=== PATIENT | male | born 1965 | race Caucasian/White ===

== ENCOUNTER 2022-12-10 03:22 | Emergency (ER) | payer SELFPAY ==
[2022-12-10 03:30] VITALS: BP 197/107; PULSE 62; O2SAT 96
--- NOTE | 2022-12-10 03:36 | ED.OVERDOSE ---
HPI - Overdose General Chief Complaint: Overdose Stated Complaint: OD Time Seen by Provider: 12/10/22 03:35 Source: patient Mode of arrival: ambulatory Limitations: no limitations History of Present Illness HPI Narrative: Patient was found unresponsive by PD at friend's house after patient had few drinks and use cocaine does not remember taking fentanyl but was given 8 mg of intranasal Narcan and patient woke up and responded back to normal on arrival alert oriented x3 and ambulatory without any distress Related Data Allergies Allergy/AdvReac Type Severity Reaction Status Date / Time No Known Allergies Allergy Verified 12/10/22 03:56 Review of Systems Review of Systems: Yes all other systems are reviewed and are negative [facility] Social History Social History Advance Directives: No Advance Directives Information Provided: Yes Physical Exam Vital Signs: Vital Signs: Last Vital Signs Temp 97.5 F 12/10/22 03:42 Pulse 73 12/10/22 03:42 Resp 20 12/10/22 03:42 BP 148/98 H 12/10/22 03:42 Pulse Ox 93 12/10/22 03:42 O2 Del Method Room Air 12/10/22 03:42 BMI result Body Mass Index 35.0 Appearance: Alert. Oriented X3. No acute distress. Eyes: PERRLA, No Nystagmus ENT: Pharynx normal. Oral Mucosa moist Neck: Normal inspection. Neck supple. CVS: Normal heart rate and rhythm. Pulses normal. Respiratory: No respiratory distress. Equal air entry bilateral, no wheezing/rales/rhonchi Abdomen: Soft and nontender. Bowel sounds are present, no mass palpable, no CVA tenderness Skin: Skin warm and dry. Normal skin color. Normal skin turgor. Extremities: No lower extremity edema. No calf tenderness Neuro: Oriented X 3. No motor deficit. No sensory deficit.No cerebellar signs , cranial nerves II-XII intact Medical Decision Making Medical Decision Making [facility] Narrative: Patient positive for cocaine and fentanyl likely because of unresponsiveness receive Narcan patient refused to go to detox discharge patient home on Narcan go with patient Differential Diagnosis Differential Diagnoses: The differential diagnosis associated with the presentation includes Overdose/cocaine abuse and alcohol abuse Lab Data [facility] Lab Attestation statement: I reviewed the patient's lab results. Labs: Lab Results 12/10/22 Range/Units 03:40 Urine Opiates Screen POSITIVE H (Not Detect) Urine Fentanyl Screen POSITIVE H (Not Detect) Ur Barbiturates Screen Not Detected (Not Detect) Ur Phencyclidine Scrn Not Detected (Not Detect) Ur Amphetamines Screen Not Detected (Not Detect) U Benzodiazepines Scrn Not Detected (Not Detect) Urine Cocaine Screen POSITIVE H (Not Detect) U Marijuana (THC) Screen Not Detected (Not Detect) Discharge Plan Discharge Clinical Impression: Poisoning by opiate or related narcotic, Cocaine intoxication Patient Disposition: Home, Self-Care Instructions: Cocaine Abuse (ED), Opioid Use Disorder (ED) Additional Instructions: Stop using opiates and cocaine and alcohol Follow up detox
[2022-12-10 03:42] VITALS: BP 148/98; PULSE 73; RESP 20; TEMP 36.4; O2SAT 93; BMI 35.0
--- NOTE | 2022-12-10 04:46 | PC.NURSE ---
Pt ambulated to BR independently with steady gait.
[2022-12-10 05:06] VITALS: BP 137/101; PULSE 73; RESP 18; O2SAT 99
== END 2022-12-10 05:07 | disposition home or self-care (01) ==
PROVIDERS: Emergency Provider Internal Medicine
DX: T40.5X1A Poisoning by cocaine, accidental (unintentional), initial encounter (principal); T40.411A Poisoning by fentanyl or fentanyl analogs, accidental (unintentional), initial encounter; R40.4 Transient alteration of awareness; Y92.009 Unspecified place in unspecified non-institutional (private) residence as the place of occurrence of the external cause; F14.929 Cocaine use, unspecified with intoxication, unspecified
CPT/HCPCS: 80307; 99285

== ENCOUNTER 2024-05-28 16:52 | Observation (INO) | payer MEDICAID, SELFPAY ==
--- NOTE | ~2024-05-28 | CT_ITS ---
CLINICAL HISTORY: dizzy CT head without contrast Comparison: None Findings: No intra-axial mass, midline shift, hydrocephalus, or acute hemorrhage. Nonspecific white matter hypodensities are present. The visualized paranasal sinuses and mastoid air cells are normal. The orbits are unremarkable. No skull fracture. IMPRESSION: 1. No acute intracranial findings. This document has been electronically signed by: Chadd Aguila MD, PHD on 05/28/2024 19:24:32
--- NOTE | ~2024-05-28 | XR_ITS ---
CLINICAL HISTORY: Dizziness, elevated troponin 2 view chest x-ray Comparison: None Findings: No consolidation or effusion. Normal size heart. No acute fracture. IMPRESSION: 1. No acute findings. This document has been electronically signed by: Chadd Aguila MD, PHD on 05/29/2024 00:57:09
[2024-05-28 17:51] VITALS: BP 174/104; PULSE 72; RESP 18; TEMP 36.3; O2SAT 98; BMI 32.7
--- NOTE | 2024-05-28 17:54 | ECG_ITS ---
Test Reason : arrythmia Blood Pressure : */* mmHG Vent. Rate : 62 BPM Atrial Rate : 62 BPM P-R Int : 174 ms QRS Dur : 108 ms QT Int : 452 ms P-R-T Axes : 59 21 166 degrees QTcB Int : 458 ms Normal sinus rhythm Left ventricular hypertrophy with repolarization abnormality ( Sokolow-Parker , [place] product ) Abnormal ECG No previous ECGs available Referred By: Usha Atwood Electronically Signed By: TILA GLYNN MD
--- NOTE | 2024-05-28 17:56 | ED.GENADULT ---
HPI - General Adult General Chief complaint: Dizziness Stated complaint: vertigo,diff walking,muscle loss Time Seen by Provider: 05/28/24 22:39 Source: patient Mode of arrival: ambulatory Limitations: no limitations History of Present Illness ED Provider: Martir Salgado DO HPI narrative: 58-year-old male who has not seen a doctor in decades presents with 4 years of dizziness with exertion that worsened over the last week. Admits to chronic alcohol use without withdrawals, chronic tobacco use and occasional cocaine use. No known family history of coronary disease at early age. Patient does not have a history of hypertension, hyperlipidemia, or diabetes but again, has not seen a doctor. He has had no cardiac testing. He reports occasional chest pain, not occurring today. He reports chronic dyspnea on exertion and chronic numbness of the feet. He denies any new changes in hearing, vision, speaking nor has he had numbness or weakness of the arms or legs. Related Data Home Medications ?Medication ?Instructions ?Recorded ?Confirmed No Known Home Meds 05/29/24 05/29/24 Allergies Allergy/AdvReac Type Severity Reaction Status Date / Time No Known Allergies Allergy Verified 05/28/24 17:56 Review of Systems Review of Systems: Yes all other systems are reviewed and are negative [facility] Social History Social History Household Members: Other Household Members Other:: Father Housing: House Alcohol intake: current Alcohol intake frequency: 0-2 drinks per day Alcohol type: hard liquor Patient Tobacco Use Status: Current everyday Tobacco user Tobacco use type: Cigarette e-Cigarette/Vaping Use: Never Used Substance Use Type: Crack/Cocaine and Marijuana service: No Physical Exam ED Vital Signs: Vital Signs - 24 hr 05/28/24 17:51 05/28/24 22:49 05/28/24 23:56 Temperature 97.4 F Pulse Rate 72 74 77 Respiratory Rate 18 15 16 Blood Pressure 174/104 H 166/95 H 170/102 H Pulse Oximetry 98 Oxygen Delivery Method Room Air BMI result Body Mass Index 32.7 Constitutional: ?Alert, oriented, speaking in full sentences HEENT: ?Normocephalic, atraumatic. ?Moist mucous membranes Eyes: ?PERRL, EOMI Neck: ?Supple, nontender Chest: ?No chest wall tenderness Respiratory: ?Lungs clear to auscultation, no increased work of breathing Cardio: ?Regular rate and rhythm, no murmur, 2+ radial and DP pulses symmetrically GI: ?Soft, nondistended, nontender Back: ?Normal range of motion, nontender Skin: ?No rash, no lesions Neuro: ?Mental Status: Patient is alert, attentive, and fully oriented Speech: Clear and fluent CN II: Visual teran are full, pupils are equal and briskly reactive to light CN III, IV, : Extra ocular motions are intact in all directions. No ptosis. CN V: Facial sensation intact, both upper and lower face CN VII: Symmetric facial movements CN VIII: Hearing is grossly normal CN IX, X: Symmetric elevation of palate, normal phonation CN XI: Shoulder shrug 5/5 strength bilaterally CN XII: Tongue protrudes midline Motor: No pronator drift bilaterally. 5/5 strength all 4 extremities. Normal muscle bulk and tone. Sensory: Sensation intact all 4 extremities to light touch without reported paresthesias. Coordination: No dysmetria on finger to nose bilaterally. No truncal ataxia noted. Extremities: ?No swelling or tenderness, full range of motion Psych: ?Calm, alert and cooperative, appropriate behavior Course Course Course Narrative: This is a rapid medical exam performed by Usha Atwood PA-C. The patient is a 58-year-old male with self report of chronic vertigo, who presents with failure to thrive. Patient states he has declined rapidly, becoming increasingly weak, with a gait instability. No change in dizziness. Patient denies that movement of the head elicits dizziness or nausea. Patient states he is off balance when he walks, becomes dizzy at times, with tinnitus. We will be screening basic labs, EKG, UA, drug screen, CT of the brain. The patient is stable and can return to the waiting room pending his full medical assessment. Medications Administered Generic Name Dose Route Start Last Admin Trade Name Freq PRN Reason Stop Dose Admin Amlodipine Besylate 5 mg 05/29/24 01:10 05/29/24 09:00 Amlodipine Besylate 5 Mg Tablet PO 5 mg DAILY MICHAEL Administration Protocol Enoxaparin Sodium 40 mg 05/29/24 01:00 05/29/24 02:04 Enoxaparin Sodium 40 Mg/0.4 Ml Syringe SUBCUT 40 mg Q24H MICHAEL Administration Sodium Chloride 3 ml 05/29/24 08:00 05/29/24 16:26 0.9 % Sodium Chloride Flush 3 Ml Syringe IVFLUSH 3 ml QSHIFT MICHAEL Administration Thiamine HCl 100 mg 05/29/24 09:00 05/29/24 09:00 Thiamine Hcl 100 Mg Tablet PO 100 mg DAILY MICHAEL Administration Discontinued Medications Generic Name Dose Route Start Last Admin Trade Name Chinmay PRN Reason Stop Dose Admin Aspirin 324 mg 05/28/24 23:42 05/28/24 23:55 Aspirin 81 Mg Tab.Chew PO 05/28/24 23:43 324 mg ONCE ONE Administration Thiamine HCl 200 mg/ Sodium 102 mls @ 204 mls/hr 05/29/24 00:49 05/29/24 04:09 Chloride IV 05/29/24 01:18 Infused ONCE ONE Infusion Lorazepam 1 mg 05/29/24 01:06 05/29/24 02:04 Lorazepam 1 Mg Tablet PO 05/29/24 01:07 1 mg ONCE ONE Administration Potassium Chloride 20 meq 05/29/24 09:13 05/29/24 10:24 Potassium Chloride Er 20 Meq Tab.Er.Prt PO 05/29/24 09:14 20 meq ONCE ONE Administration Medical Decision Making Medical Decision Making [facility] Narrative: This is a pleasant 58-year-old male who has not seen a doctor in several decades, admits to cocaine use and alcohol with half a pt a day with no withdrawal history and no signs of withdrawal today who finally came in for lightheaded dizziness that he has been experiencing for years which has progressively worsened, associated only when he stands and walks as well as dyspnea on exertion and occasional chest tightness but no chest pain or pressure today. Also smokes tobacco regularly. I repeated his ECG and it shows LVH with no other ischemic changes. His initial troponin was 88.8. I just gave him full-dose aspirin. He does have a repeat in-lab and if it goes up significantly I will initiate heparin. CT noncontrast head unremarkable. Neurologic exam fully intact. Case reviewed with hospitalist who kindly asked for Cardiology input. We will trend troponin. The patient has no active symptoms at rest. He has no clinical features concerning for central etiology such as stroke today. Patient is amenable to staying in the hospital for further workup. 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 Repeat troponin is downtrending at 79. No heparin warranted at this time. Admission/Observation Consideration of admission/observation: Escalation of care including admission/observation considered Lab Data MDM Lab Attestation statement: I reviewed the patient's lab results. No leukocytosis, mild anemia which is macrocytic unremarkable chemistry with a troponin of 88.8, grossly unremarkable urinalysis, urine tox screen positive for cocaine, negative respiratory swab. No prior labs for comparison. 05/29/24 05:12 05/29/24 05:12 Labs: Lab Results 05/28/24 05/28/24 05/28/24 Range/Units 19:01 19:15 21:34 WBC 6.2 (4.8-10.8) X10*3/uL RBC 3.32 L (4.60-5.80) X10*6/uL Hgb 11.9 L (14.0-18.0) g/dl Hct 33.7 L (42.0-52.0) % MCV 101.5 H (80.0-98.0) fL MCH 35.8 H (27.0-33.0) pg MCHC 35.3 (31.0-36.0) g/dl RDW 14.5 (11.0-16.0) % Plt Count 108 L (160-400) X10*3/uL MPV 8.3 L (9.4-12.4) fL Immature Gran % (Auto) 0.3 (0.0-0.4) % Neut % (Auto) 79.9 H (45-73) % Lymph % (Auto) 7.6 L (20-40) % [place] % (Auto) 8.1 (2-11) % Eos % (Auto) 3.6 (0-4) % Baso % (Auto) 0.5 (0-2) % Lymph # (Auto) 0.5 L (1.2-4.9) X10*3/uL [place] # (Auto) 0.5 (0.1-1.2) X10*3/uL Eos # (Auto) 0.2 (0.0-0.4) X10*3/uL Baso # (Auto) 0.0 (0.0-0.2) X10*3/uL Abs Immat Gran (auto) 0.02 (0.00-0.03) X10*3/uL Absolute Neuts (auto) 4.9 (2.0-8.3) x10*3/uL Absolute Nucleated RBC 0.000 (0.0-0.012) X10*3/uL Nucleated RBC % (auto) 0.0 (0.0-0.2) /100WBC Sodium 137 (135-145) mmol/L Potassium 4.4 (3.3-5.1) mmol/L Chloride 105 (96-108) mmol/L Carbon Dioxide 25 (22-29) mmol/L Anion Gap 11 L (12-20) BUN 24 H (9-16) mg/dL Creatinine 1.33 (0.5-1.4) mg/dL Estim Creat Clear Calc 83.8 Estimated GFR 56 Random Glucose 103 (60-115) mg/dL Calcium 9.4 (8.4-10.2) mg/dL Magnesium 2.1 (1.6-2.6) mg/dL Total Bilirubin 0.8 (0.0-1.0) mg/dL AST 57 H (5-37) U/L ALT 30 (0-40) U/L Alkaline Phosphatase 58 (39-117) U/L Troponin I High Sens 88.8 H (<3.5-35.0) ng/L Total Protein 7.4 (6.5-8.0) g/dL Albumin 4.5 (3.5-5.0) g/dL Urine Color Yellow Urine Appearance Clear Urine pH 5.5 (5.0-9.0) Ur Specific [place] 1.020 (1.005-1.025) Urine Protein 30 (1+) H (Neg-Trace) mg/dL Urine Glucose (UA) 100 H (Negative) mg/dL Urine Ketones Trace (Negative) mg/dL Urine Blood Moderate (2+) H (Negative) Urine Nitrite Negative (Negative) Ur Leukocyte Esterase Small (1+) H (Negative) Urine RBC 0-2 (0-2) /HPF Urine WBC 0-5 (0-5) /HPF Ur Squamous Epith Cells 6-10 (0-2) /HPF Urine Bacteria None Seen (None Seen) Hyaline Casts 0-2 (0-2) /LPF Urine Opiates Screen Not Detected (Not Detect) Ur Buprenorphine Scrn Not Detected (Not Detect) ng/mL Ur Oxycodone Screen Not Detected (Not Detect) ng/mL Urine Methadone Screen Not Detected (Not Detect) ng/mL Urine Fentanyl Screen Not Detected (Not Detect) Ur Barbiturates Screen Not Detected (Not Detect) Ur Phencyclidine Scrn Not Detected (Not Detect) Ur Amphetamines Screen Not Detected (Not Detect) U Benzodiazepines Scrn Not Detected (Not Detect) Urine Cocaine Screen POSITIVE H (Not Detect) U Marijuana (THC) Screen Not Detected (Not Detect) Ethyl Alcohol < 10 mg/dL Influenza Type A (PCR) NEGATIVE (Negative) Influenza Type B (PCR) NEGATIVE (Negative) RSV RNA Qual (PCR) NEGATIVE (Negative) SARS-CoV-2 RNA (RT-PCR) NEGATIVE (Negative) 05/28/24 Range/Units 23:36 WBC (4.8-10.8) X10*3/uL RBC (4.60-5.80) X10*6/uL Hgb (14.0-18.0) g/dl Hct (42.0-52.0) % MCV (80.0-98.0) fL MCH (27.0-33.0) pg MCHC (31.0-36.0) g/dl RDW (11.0-16.0) % Plt Count (160-400) X10*3/uL MPV (9.4-12.4) fL Immature Gran % (Auto) (0.0-0.4) % Neut % (Auto) (45-73) % Lymph % (Auto) (20-40) % [place] % (Auto) (2-11) % Eos % (Auto) (0-4) % Baso % (Auto) (0-2) % Lymph # (Auto) (1.2-4.9) X10*3/uL [place] # (Auto) (0.1-1.2) X10*3/uL Eos # (Auto) (0.0-0.4) X10*3/uL Baso # (Auto) (0.0-0.2) X10*3/uL Abs Immat Gran (auto) (0.00-0.03) X10*3/uL Absolute Neuts (auto) (2.0-8.3) x10*3/uL Absolute Nucleated RBC (0.0-0.012) X10*3/uL Nucleated RBC % (auto) (0.0-0.2) /100WBC Sodium (135-145) mmol/L Potassium (3.3-5.1) mmol/L Chloride (96-108) mmol/L Carbon Dioxide (22-29) mmol/L Anion Gap (12-20) BUN (9-16) mg/dL Creatinine (0.5-1.4) mg/dL Estim Creat Clear Calc Estimated GFR Random Glucose (60-115) mg/dL Calcium (8.4-10.2) mg/dL Magnesium (1.6-2.6) mg/dL Total Bilirubin (0.0-1.0) mg/dL AST (5-37) U/L ALT (0-40) U/L Alkaline Phosphatase (39-117) U/L Troponin I High Sens 79.1 H (<3.5-35.0) ng/L Total Protein (6.5-8.0) g/dL Albumin (3.5-5.0) g/dL Urine Color Urine Appearance Urine pH (5.0-9.0) Ur Specific [place] (1.005-1.025) Urine Protein (Neg-Trace) mg/dL Urine Glucose (UA) (Negative) mg/dL Urine Ketones (Negative) mg/dL Urine Blood (Negative) Urine Nitrite (Negative) Ur Leukocyte Esterase (Negative) Urine RBC (0-2) /HPF Urine WBC (0-5) /HPF Ur Squamous Epith Cells (0-2) /HPF Urine Bacteria (None Seen) Hyaline Casts (0-2) /LPF Urine Opiates Screen (Not Detect) Ur Buprenorphine Scrn (Not Detect) ng/mL Ur Oxycodone Screen (Not Detect) ng/mL Urine Methadone Screen (Not Detect) ng/mL Urine Fentanyl Screen (Not Detect) Ur Barbiturates Screen (Not Detect) Ur Phencyclidine Scrn (Not Detect) Ur Amphetamines Screen (Not Detect) U Benzodiazepines Scrn (Not Detect) Urine Cocaine Screen (Not Detect) U Marijuana (THC) Screen (Not Detect) Ethyl Alcohol mg/dL Influenza Type A (PCR) (Negative) Influenza Type B (PCR) (Negative) RSV RNA Qual (PCR) (Negative) SARS-CoV-2 RNA (RT-PCR) (Negative) Independent Interpretation I performed an independent interpretation of an: EKG Interpretation: Normal sinus rhythm at 62 beats per minute, LVH with T-wave inversions in the anterior and high lateral leads as well as ST depressions in these leads, no diagnostic ST wave elevation, unremarkable intervals, no previous for comparison. Discharge Plan Discharge Clinical Impression: Dizziness, Non-ST elevation CT (NSTEMI) Patient Disposition: Admitted As Inpatient Interventions: Admission Worksheet (ED) Last Done: 05/29/24 06:49 Discharge Date/Time: 05/29/24 08:10
[2024-05-28 19:07] LABS: MANUAL DIFF FLAG NO
[2024-05-28 19:08] LABS: Basophils Percent Auto 0.5 % (0-2); Eosinophils Absolute Auto 0.2 X10*3/uL (0.0-0.4); Eosinophils Percent Auto 3.6 % (0-4); Hematocrit 33.7 % (42.0-52.0); Hemoglobin 11.9 g/dl (14.0-18.0); Imm Gran Abs Auto 0.02 X10*3/uL (0.00-0.03); Imm Gran Pct Auto 0.3 % (0.0-0.4); Lymphocytes Absolute Auto 0.5 X10*3/uL (1.2-4.9); Lymphocytes Percent Auto 7.6 % (20-40); Mean Corpuscular HGB Conc 35.3 g/dl (31.0-36.0); Mean Corpuscular Hemoglobin 35.8 pg (27.0-33.0); Mean Corpuscular Volume 101.5 fL (80.0-98.0); Mean Platelet Volume 8.3 fL (9.4-12.4); Monocytes Absolute Auto 0.5 X10*3/uL (0.1-1.2); Monocytes Percent Auto 8.1 % (2-11); Neutrophils Absolute Auto 4.9 x10*3/uL (2.0-8.3); Neutrophils Percent Auto 79.9 % (45-73); Platelet Count 108 X10*3/uL (160-400); Red Blood Count 3.32 X10*6/uL (4.60-5.80); Red Cell Distribution Width 14.5 % (11.0-16.0); White Blood Count 6.2 X10*3/uL (4.8-10.8)
[2024-05-28 19:27] LABS: Alanine Aminotransferase 30 U/L (0-40); Albumin Level 4.5 g/dL (3.5-5.0); Alkaline Phosphatase 58 U/L (39-117); Anion Gap 11 (12-20); Aspartate Amino Transferase 57 U/L (5-37); Bilirubin Total 0.8 mg/dL (0.0-1.0); Blood Urea Nitrogen 24 mg/dL (9-16); Calcium 9.4 mg/dL (8.4-10.2); Carbon Dioxide 25 mmol/L (22-29); Chloride 105 mmol/L (96-108); Creatinine Clr Calc Pharmacy 83.8; Estimated Glomerular Filt Rate 56; Ethanol < 10 mg/dL; Glucose Random 103 mg/dL (60-115); Magnesium 2.1 mg/dL (1.6-2.6); Potassium 4.4 mmol/L (3.3-5.1); Sodium 137 mmol/L (135-145); Total Protein 7.4 g/dL (6.5-8.0)
[2024-05-28 19:28] LABS: Appearance Urine Clear; Color Urine Yellow; Glucose Urine UA 100 mg/dL (Negative); Leukocyte Esterase Urine Small (1+) (Negative); Nitrite Urine Negative (Negative); PH 5.5 (5.0-9.0); UMIC TRIGGER UACC YES; Urine Blood Moderate (2+) (Negative); Urine Ketones Trace mg/dL (Negative); Urine Protein 30 (1+) mg/dL (Neg-Trace)
[2024-05-28 19:37] LABS: Amphetamine Screen Urine Not Detected (Not Detect); Barbiturates, Urine Not Detected (Not Detect); Benzodiazepines Screen Urine Not Detected (Not Detect); Buprenorphine Scr Not Detected (Not Detect); Cannabinoid Screen Urine Not Detected (Not Detect); Cocaine Screen Urine POSITIVE (Not Detect); Fentanyl, urine Not Detected (Not Detect); Methadone Screen, Urine Not Detected (Not Detect); Opiate Screen Urine Not Detected (Not Detect); Oxycodone Screen Urine Not Detected (Not Detect); Phencyclidine Screen Urine Not Detected (Not Detect)
[2024-05-28 19:42] LABS: Bacteria Urine None Seen (None Seen); Hyaline Casts Urine 0-2 /LPF (0-2); RBC Urine 0-2 /HPF (0-2); UACC Culture Trigger YES; WBC Urine 0-5 /HPF (0-5)
[2024-05-28 19:47] LABS: Influenza A PCR NEGATIVE (Negative); Influenza B PCR NEGATIVE (Negative); Resp Syncy Virus RNA Qual PCR NEGATIVE (Negative); SARS COV2 PCR INHOUSE NEGATIVE (Negative)
[2024-05-28 22:24] LABS: Troponin-I High Sensitivity 88.8 ng/L (<3.5-35.0)
[2024-05-28 22:49] VITALS: BP 166/95; PULSE 74; RESP 15
--- NOTE | 2024-05-28 23:30 | ECG_ITS ---
Test Reason : DIZZINESS Blood Pressure : */* mmHG Vent. Rate : 68 BPM Atrial Rate : 68 BPM P-R Int : 184 ms QRS Dur : 106 ms QT Int : 446 ms P-R-T Axes : 50 22 173 degrees QTcB Int : 474 ms Normal sinus rhythm Left ventricular hypertrophy with repolarization abnormality ( Sokolow-Parker , [place] product ) Abnormal ECG When compared with ECG of 28-May-2024 18:54, No significant change was found Referred By: Martir Salgado Electronically Signed By: TLIA GLYNN MD
[2024-05-28] MEDS: Aspirin 81 MG TAB.CHEW 324 MG PO (23:55)
[2024-05-28 23:56] VITALS: BP 170/102; PULSE 77; RESP 16
[2024-05-29] VITALS (8 sets, daily range): BP systolic 127–171; BP diastolic 56–113; PULSE 65–75; RESP 15–20; TEMP 36.4–37.1; O2SAT 94–98; BMI 33.3
[2024-05-29 00:06] LABS: Troponin-I High Sensitivity 79.1 ng/L (<3.5-35.0)
--- NOTE | 2024-05-29 00:26 | P.HPHOSP_ITS ---
History of Present Illness Date of Service: 05/29/24 Attending physician on admission: Delvin Harrison Chief Complaint: weakness, ARGUELLES Patient is a 58-year-old male with no significant past medical history as he has not seen a primary care provider in decades, who reported to the ED due to chronic lightheadedness, dizziness and dyspnea on exertion for the past few years which have been worsening recently. He also experiences occasional chest tightness with exertion but has not had any chest pain today. He denies any infectious symptoms including fever, chills, nausea or vomiting. No diarrhea or urinary symptoms including frequency, urgency or dysuria. He has numbness in his feet bilaterally and reports it has been present for years. He does have a brother with a history of diabetes but has never been tested for this in the past. He admits to frequent alcohol use, 1/2 a pt daily, no history of withdrawal reports he can go days without without any symptoms. He also uses occasional cocaine, last use was 5 days ago. He has been smoking his whole life and reports that he is quitting cold turkey starting today. He reports occasional rectal bleeding, bright red blood separate from the stool with straining for a bowel movement and variable bowel consistency, mostly constipation sometimes diarrhea. Currently feels well but is very concerned due to his lack of medical care for many years. He reports sudden hair loss on extremities and difficulties with balance. Review of Systems 2 Constitutional: Constitutional: Denies body ache(s), Denies chills, Reports fatigue, Denies fever(s), Denies headache(s), Reports weakness and Denies weight loss Eyes: Eyes: Denies change in vision and Denies photophobia ENT: Denies headache(s), Denies nasal congestion, Denies nasal discharge and Denies sore throat Cardiovascular: Cardiovascular: Reports chest pain with activity, Denies rapid heart rate, Denies leg edema, Reports lightheadedness and Reports dyspnea on exertion Respiratory: Respiratory: Denies chest congestion, Denies cough, Reports dyspnea on exertion and Denies wheezing Gastrointestinal: Gastrointestinal: Denies melena, Reports hematochezia, Reports constipation, Reports diarrhea, Denies nausea, Denies vomiting and Denies hematemesis Genitourinary: Genitourinary: Denies difficulty urinating, Denies dysuria and Denies urinary urgency Musculoskeletal: Musculoskeletal: Denies myalgias Integumentary/Breasts: Skin/Breast: Reports alopecia and Denies rash Neurologic: Denies confusion, Denies headache(s) and Reports weakness Psychiatric: Psychiatric: Denies confusion Endocrine: Endocrine: Reports fatigue Hematologic/Lymphatic: Hematologic/Lymphatic: Denies easy bleeding and Denies easy bruising Allergic/Immunologic: Allergic/Immunologic: Denies wheezing PMFSH Functional capacity: independent ambulation Social History Alcohol intake: current Alcohol intake frequency: 0-2 drinks per day Alcohol type: hard liquor Smoked in Last 30 Days: Yes Use of substances other than those prescribed or required for medical reasons: No Substance Use Type: Crack/Cocaine, Marijuana and Opiates Advance Directives: No Advance Directives Information Provided: Yes Narrative: Smoker since a teen, reports he is quitting as of today. Occasional cocaine, last use 5 days ago. Drinks 1/2 a pt of alcohol daily. Meds Allergies Allergy/AdvReac Type Severity Reaction Status Date / Time No Known Allergies Allergy Verified 05/28/24 17:56 Physical Exam 2 Vital Signs and Narrative: Vital Signs: Last Vital Signs Temp 97.4 F 05/28/24 17:51 Pulse 77 05/28/24 23:56 Resp 16 05/28/24 23:56 BP 170/102 H 05/28/24 23:56 Pulse Ox 98 05/28/24 17:51 O2 Del Method Room Air 05/28/24 17:51 BMI result Body Mass Index 32.7 General: AOx3, no acute distress Resp: Diminished throughout, no wheezing or crackles CVS: RRR GI: +BS, NT, no distention Skin: Warm, dry. no diaphoresis. large ?lipoma upper back on left. no pain with palpation, mobile, not fluctuant, or drainage or sign of infection Neuro: Cranial nerves II-XII grossly intact bilaterally. Motor grossly intact bilaterally. No tremor Extremities: No lower extremity edema Psych: Appropriate affect. Const: General: No confusion Orientation/consciousness: No confusion Eyes: Direct Ophthalmoscopy: No photophobia Neuro: General: No confusion Results Labs 05/28/24 19:01 05/28/24 19:01 Labs: Laboratory Results - last 24 hr 05/28/24 05/28/24 19:01 19:15 MCV 101.5 H MCH 35.8 H MCHC 35.3 RDW 14.5 Plt Count 108 L MPV 8.3 L Immature Gran % (Auto) 0.3 Neut % (Auto) 79.9 H Lymph % (Auto) 7.6 L [place] % (Auto) 8.1 Eos % (Auto) 3.6 Baso % (Auto) 0.5 Lymph # (Auto) 0.5 L [place] # (Auto) 0.5 Eos # (Auto) 0.2 Baso # (Auto) 0.0 Abs Immat Gran (auto) 0.02 Absolute Neuts (auto) 4.9 Absolute Nucleated RBC 0.000 Nucleated RBC % (auto) 0.0 Anion Gap 11 L Estim Creat Clear Calc 83.8 Estimated GFR 56 Random Glucose 103 Calcium 9.4 Magnesium 2.1 Total Bilirubin 0.8 AST 57 H ALT 30 Alkaline Phosphatase 58 Total Protein 7.4 Albumin 4.5 Urine Color Yellow Urine Appearance Clear Urine pH 5.5 Ur Specific [place] 1.020 Urine Protein 30 (1+) H Urine Glucose (UA) 100 H Urine Ketones Trace Urine Blood Moderate (2+) H Urine Nitrite Negative Ur Leukocyte Esterase Small (1+) H Urine RBC 0-2 Urine WBC 0-5 Ur Squamous Epith Cells 6-10 Urine Bacteria None Seen Hyaline Casts 0-2 Urine Opiates Screen Not Detected Ur Buprenorphine Scrn Not Detected Ur Oxycodone Screen Not Detected Urine Methadone Screen Not Detected Urine Fentanyl Screen Not Detected Ur Barbiturates Screen Not Detected Ur Phencyclidine Scrn Not Detected Ur Amphetamines Screen Not Detected U Benzodiazepines Scrn Not Detected Urine Cocaine Screen POSITIVE H U Marijuana (THC) Screen Not Detected Ethyl Alcohol < 10 Influenza Type A (PCR) NEGATIVE Influenza Type B (PCR) NEGATIVE RSV RNA Qual (PCR) NEGATIVE SARS-CoV-2 RNA (RT-PCR) NEGATIVE Assessment and Plan (1) Dizziness: Status: Acute (2) HTN (hypertension): Status: Acute (3) Anemia: Status: Acute (4) Elevated LFTs: Status: Acute (5) Alcohol use disorder: Status: Acute (6) Substance use disorder: Status: Acute (7) Tobacco use disorder: Status: Acute (8) Thrombocytopenia: Status: Acute (9) Microscopic hematuria: Status: Acute Plan Patient is a 58-year-old male with no significant past medical history as he has not seen a primary care provider in decades, who reported to the ED due to chronic lightheadedness, dizziness and dyspnea on exertion for the past few years which have been worsening recently. Dizziness due to HTN - head CT negative - neurologic exam negative - BP elevated, patient reports no previous diagnosis of HTN however has not seen a doctor - EKG with NSR and LVH - troponin elevated at 88.8, 79 on repeat, given aspirin 324 mg - COVID/flu/RSV negative - chest x-ray pending - ED provider discussed with Cardiology who suggested admission and echocardiogram - monitor on tele - if w/u negative consider neurology consult HTN, new dx - systolic up to 170, diastolic up to 102 - start amlodipine 5mg now - monitor BPs Q4H Macrocytic anemia - Hemoglobin 11.9, hematocrit 33.7, MCV 101.5 - likely secondary to alcohol use - check B12 and folate with AM labs - monitor CBC Elevated LFTs /thrombycytopenia, likley secondary to chronic alcohol use - AST mildly elevated at 57, ALT normal, alk-phos normal, bilirubin normal - platelets 108 - outpatient follow-up with PCP/GI Microscopic hematuria - patient reports no gross hematuria - likely secondary to chronically untreated elevated blood pressure - follow-up outpatient Alcohol use disorder - no sign of acute withdrawal - monitor CIWA - initiate phenobarb protocol if CIWA scores elevated - IV thamine 100mg x1, then PO 200mg daily - addiction med consult Substance use disorder, cocaine - last use 5 days ago - addiction med consult as above Tobacco use disorder - smoking cessation discussed - patient declined nicotine replacement, states he is quitting without Full code VTE prophylaxis: Lovenox Patient with dizziness likely secondary to elevated blood pressure, requiring admission for observation for further testing and monitoring. Quality Stroke Does the patient have a stroke diagnosis?: No VTE Prior VTE?: No VTE Risk Level:: Medical - moderate - high VTE Device Contraindication: Treatment Not Indicated VTE Drug Contraindication: N/A - Med Ordered
--- NOTE | 2024-05-29 01:15 | MHC.EDTECH ---
This pct assumed care of Patient at 0100 ,vitals taken ,and Patient belongings list done .All safety measure in Place .Patient awake ,no apparent distress noted .
[2024-05-29] MEDS: Thiamine HCL 200 MG in 0.9 % Sodium Chloride 100 ML 204 MG IV (02:03)
[2024-05-29] MEDS: amLODIPine Besylate 5 MG TABLET PO ×2 (02:04→09:00)
[2024-05-29] MEDS: LORazepam 1 MG TABLET PO (02:04)
[2024-05-29] MEDS: Enoxaparin Sodium 40 MG/0.4 ML SYRINGE SUBCUT (02:04)
--- NOTE | 2024-05-29 05:14 | MHC.EDTECH ---
am labs drawn and sent to lab ,vitals taken ,Patient had a sandwich and water for snack .
[2024-05-29 06:38] LABS: MANUAL DIFF FLAG NO
[2024-05-29 06:46] LABS: Basophils Percent Auto 0.6 % (0-2); Eosinophils Absolute Auto 0.4 X10*3/uL (0.0-0.4); Eosinophils Percent Auto 5.9 % (0-4); Hematocrit 34.3 % (42.0-52.0); Imm Gran Abs Auto 0.03 X10*3/uL (0.00-0.03); Imm Gran Pct Auto 0.5 % (0.0-0.4); Lymphocytes Absolute Auto 0.8 X10*3/uL (1.2-4.9); Lymphocytes Percent Auto 11.8 % (20-40); Mean Corpuscular Hemoglobin 35.9 pg (27.0-33.0); Mean Corpuscular Volume 102.7 fL (80.0-98.0); Monocytes Absolute Auto 0.5 X10*3/uL (0.1-1.2); Monocytes Percent Auto 7.9 % (2-11); Neutrophils Absolute Auto 4.7 x10*3/uL (2.0-8.3); Neutrophils Percent Auto 73.3 % (45-73); Platelet Count 119 X10*3/uL (160-400); Red Blood Count 3.34 X10*6/uL (4.60-5.80); Red Cell Distribution Width 14.2 % (11.0-16.0); White Blood Count 6.4 X10*3/uL (4.8-10.8)
[2024-05-29 07:01] LABS: Troponin-I High Sensitivity 79.8 ng/L (<3.5-35.0)
[2024-05-29 07:04] LABS: Anion Gap 11 (12-20); Blood Urea Nitrogen 24 mg/dL (9-16); Carbon Dioxide 22 mmol/L (22-29); Chloride 107 mmol/L (96-108); Creatinine Clr Calc Pharmacy 101.3; Estimated Glomerular Filt Rate > 60; Glucose Random 113 mg/dL (60-115); Potassium 3.1 mmol/L (3.3-5.1); Sodium 137 mmol/L (135-145)
[2024-05-29 07:31] LABS: Folate 10.3 ng/mL (> or = 4.0); Vitamin B12 342 pg/mL (200-900)
--- NOTE | 2024-05-29 08:14 | PHA.MEDREC ---
Addendum entered by Cesia Sargent [facility] 05/29/24 08:29: reviewed, no claims Original Note: Pharmacy Consult ? Medication Reconciliation Pharmacy has completed the medication reconciliation. Spoke with patient and he stated he is not taking any medications at this time.
[2024-05-29] MEDS: 0.9 % Sodium Chloride Flush 3 ML SYRINGE IVFLUSH ×3 (09:00→20:26)
[2024-05-29] MEDS: Thiamine HCL 100 MG TABLET PO (09:00)
--- NOTE | 2024-05-29 09:40 | MHC.CM.PN ---
Celsa 05/29/24, Pt lives with his father, he does not have a PCP or health insurance. Referral submitted today to financial counselors. HCP to be completed and added to chart. Pt. to arrange a ride home at [place]. DCP: home, self care. CM to follow for DC needs.
[2024-05-29] MEDS: Potassium Chloride ER 20 MEQ TAB.ER.PRT PO (10:24)
--- NOTE | 2024-05-29 11:44 | PC.NURSE ---
BP at 1130 152/100. Patient received 5mg amlodipine at 0900. notified and will continue to monitor for now.
--- NOTE | 2024-05-29 13:16 | HO.ADDICTCON ---
History of Present Illness Date of Service: 05/29/2024 Chief Complaint: chest tightness Reason for Consult: AUD Sources of Information: patient interviewed and chart reviewed HPI Narrative: Patient is a 58 year old male who presented to [facility] reporting dizziness, dyspnea with exertion and occasional chest tightness worsening over the last week. He was found to be hypertensive and admitted for further work up At admission patient reported daily alcohol use, therefore consult requested. Patient seen in room 477. Initially he declined meeting to discuss alcohol use, however he was open to meeting with t/w later in the day. Somewhat guarded when discussing his alcohol use He reports he has been drinking for quite some time, but his frequency of use and amount increased over the last 4 years. He reported anxiety and fear over his health and avoided seeking medical attn, and instead would drink more to settle the anxiety and also to help with sleep He also identified lack of structure (not working) as a factor in his increased drinking Currently drinking at least a half pint daily He says he can go a few days without drinking, but feels generally unwell when he does that and can't really eat or sleep (likely due to withdrawal sx) Denies any history or treatment or severe withdrawal sx He appears overall comfortable, no diaphoresis, tremor, or restlessness noted. He has been scoring 2 on CIWA since admission Labs reviewed, UDS +cocaine chart review shows patient presented with accidental opioid overdose in 2022 Medical Evaluation Reviewed: Yes Review of Systems Constitutional: Reports as per HPI, Reports difficulty sleeping and Reports malaise Psychiatric: Reports abnormal sleep pattern, Reports anxiety and Reports difficulty concentrating Diagnostics Vital Signs (24Hr): Vital Signs - 24 hr 05/28/24 17:51 05/28/24 22:49 05/28/24 23:56 Temperature 97.4 F Pulse Rate 72 74 77 Respiratory Rate 18 15 16 Blood Pressure 174/104 H 166/95 H 170/102 H Pulse Oximetry 98 Oxygen Delivery Method Room Air 05/29/24 01:12 05/29/24 02:04 05/29/24 04:21 Temperature 97.6 F 98.4 F Pulse Rate 73 70 Respiratory Rate 16 16 Blood Pressure 171/88 H 169/113 H 127/97 H Pulse Oximetry 95 97 Oxygen Delivery Method Room Air Room Air 05/29/24 05:13 05/29/24 08:18 05/29/24 11:19 Temperature 98.2 F 97.6 F 98.5 F Pulse Rate 67 67 70 Respiratory Rate 15 20 Blood Pressure 131/56 L 144/89 H 152/100 H Pulse Oximetry 94 97 95 Oxygen Delivery Method Room Air Room Air Room Air BMI result Body Mass Index 33.3 Labs 05/29/24 05:12 05/29/24 05:12 Labs: Laboratory Results - last 48 hr 05/28/24 05/28/24 05/28/24 19:01 19:15 21:34 WBC 6.2 RBC 3.32 L Hgb 11.9 L Hct 33.7 L MCV 101.5 H MCH 35.8 H MCHC 35.3 RDW 14.5 Plt Count 108 L MPV 8.3 L Immature Gran % (Auto) 0.3 Neut % (Auto) 79.9 H Lymph % (Auto) 7.6 L [place] % (Auto) 8.1 Eos % (Auto) 3.6 Baso % (Auto) 0.5 Lymph # (Auto) 0.5 L [place] # (Auto) 0.5 Eos # (Auto) 0.2 Baso # (Auto) 0.0 Abs Immat Gran (auto) 0.02 Absolute Neuts (auto) 4.9 Absolute Nucleated RBC 0.000 Nucleated RBC % (auto) 0.0 Sodium 137 Potassium 4.4 Chloride 105 Carbon Dioxide 25 Anion Gap 11 L BUN 24 H Creatinine 1.33 Estim Creat Clear Calc 83.8 Estimated GFR 56 Random Glucose 103 Calcium 9.4 Magnesium 2.1 Total Bilirubin 0.8 AST 57 H ALT 30 Alkaline Phosphatase 58 Troponin I High Sens 88.8 H Total Protein 7.4 Albumin 4.5 Vitamin B12 Folate Urine Color Yellow Urine Appearance Clear Urine pH 5.5 Ur Specific [place] 1.020 Urine Protein 30 (1+) H Urine Glucose (UA) 100 H Urine Ketones Trace Urine Blood Moderate (2+) H Urine Nitrite Negative Ur Leukocyte Esterase Small (1+) H Urine RBC 0-2 Urine WBC 0-5 Ur Squamous Epith Cells 6-10 Urine Bacteria None Seen Hyaline Casts 0-2 Urine Opiates Screen Not Detected Ur Buprenorphine Scrn Not Detected Ur Oxycodone Screen Not Detected Urine Methadone Screen Not Detected Urine Fentanyl Screen Not Detected Ur Barbiturates Screen Not Detected Ur Phencyclidine Scrn Not Detected Ur Amphetamines Screen Not Detected U Benzodiazepines Scrn Not Detected Urine Cocaine Screen POSITIVE H U Marijuana (THC) Screen Not Detected Ethyl Alcohol < 10 Influenza Type A (PCR) NEGATIVE Influenza Type B (PCR) NEGATIVE RSV RNA Qual (PCR) NEGATIVE SARS-CoV-2 RNA (RT-PCR) NEGATIVE 05/28/24 05/29/24 23:36 05:12 WBC 6.4 RBC 3.34 L Hgb 12.0 L Hct 34.3 L MCV 102.7 H MCH 35.9 H MCHC 35.0 RDW 14.2 Plt Count 119 L MPV 9.0 L Immature Gran % (Auto) 0.5 H Neut % (Auto) 73.3 H Lymph % (Auto) 11.8 L [place] % (Auto) 7.9 Eos % (Auto) 5.9 H Baso % (Auto) 0.6 Lymph # (Auto) 0.8 L [place] # (Auto) 0.5 Eos # (Auto) 0.4 Baso # (Auto) 0.0 Abs Immat Gran (auto) 0.03 Absolute Neuts (auto) 4.7 Absolute Nucleated RBC 0.000 Nucleated RBC % (auto) 0.0 Sodium 137 Potassium 3.1 L D Chloride 107 Carbon Dioxide 22 Anion Gap 11 L BUN 24 H Creatinine 1.10 Estim Creat Clear Calc 101.3 Estimated GFR > 60 Random Glucose 113 Calcium 9.0 Magnesium 2.0 Total Bilirubin AST ALT Alkaline Phosphatase Troponin I High Sens 79.1 H 79.8 H Total Protein Albumin Vitamin B12 342 Folate 10.3 Urine Color Urine Appearance Urine pH Ur Specific [place] Urine Protein Urine Glucose (UA) Urine Ketones Urine Blood Urine Nitrite Ur Leukocyte Esterase Urine RBC Urine WBC Ur Squamous Epith Cells Urine Bacteria Hyaline Casts Urine Opiates Screen Ur Buprenorphine Scrn Ur Oxycodone Screen Urine Methadone Screen Urine Fentanyl Screen Ur Barbiturates Screen Ur Phencyclidine Scrn Ur Amphetamines Screen U Benzodiazepines Scrn Urine Cocaine Screen U Marijuana (THC) Screen Ethyl Alcohol Influenza Type A (PCR) Influenza Type B (PCR) RSV RNA Qual (PCR) SARS-CoV-2 RNA (RT-PCR) Mental Status Exam Mental Status Exam Patient Appearance: Appropriate Patient Orientation: Person, Place, Time and Situation Level of Consciousness: Awake, Appropriate and Alert Patient Behavior: Appropriate and Guarded (regarding alcohol use ) Mood Description: Anxious Affect Description: Calm Speech Pattern: Clear Hallucinations: None Thought Process: Intact Thought Content: positive for Intact Judgement: Good Medications Medications Current Medications Acetaminophen (Acetaminophen 325 Mg Tablet) 650 mg PO Q6H PRN PRN Reason: Pain, Mild 1-3,fever,headache Amlodipine Besylate (Amlodipine Besylate 5 Mg Tablet) 5 mg PO DAILY [facility]; Protocol Last Admin: 05/29/24 09:00 Dose: 5 mg Calcium Carbonate (Calcium Carbonate 750 Mg Tab.Chew) 750 mg PO Q4H PRN PRN Reason: Heartburn Enoxaparin Sodium (Enoxaparin Sodium 40 Mg/0.4 Ml Syringe) 40 mg SUBCUT Q24H [facility] Last Admin: 05/29/24 02:04 Dose: 40 mg Magnesium Hydroxide (Milk Of Magnesia 30 Ml Oral.Susp) 30 ml PO DAILY PRN PRN Reason: Constipation Melatonin (Melatonin 3 Mg Tablet) 6 mg PO BEDTIME PRN PRN Reason: Insomnia Ondansetron HCl (Ondansetron Hcl 4 Mg/2 Ml Vial) 4 mg IVPUSH Q8H PRN PRN Reason: Nausea and Vomiting Sodium Chloride (0.9 % Sodium Chloride Flush 3 Ml Syringe) 3 ml IVFLUSH QSHIFT [facility] Last Admin: 05/29/24 09:00 Dose: 3 ml Thiamine HCl (Thiamine Hcl 100 Mg Tablet) 100 mg PO DAILY [facility] Last Admin: 05/29/24 09:00 Dose: 100 mg Allergies Allergies Allergy/AdvReac Type Severity Reaction Status Date / Time No Known Allergies Allergy Verified 05/28/24 17:56 Assessment & Plan Assessment & Plan (1) Alcohol use disorder: Status: Acute Code(s): F10.90 - Alcohol use, unspecified, uncomplicated Assessment and Plan: patient accepting of information related to AUD and harm reduction related to alcohol use disorder briefly discussed how alcohol use directly impacts current health concerns, including hypertension he declined to hear about HANDY, but accepts information about medications will follow up in AM to discuss cocaine use Total time managing care of this patient today _35___ minutes. COUNTS INCLUDE 234 BEDS AT THE [facility] Social History Social History Household Members: Other Household Members Other:: Father Housing: House Alcohol intake: current Alcohol intake frequency: 0-2 drinks per day Alcohol type: hard liquor Patient Tobacco Use Status: Current everyday Tobacco user Tobacco use type: Cigarette e-Cigarette/Vaping Use: Never Used Substance Use Type: Crack/Cocaine and Marijuana service: No
--- NOTE | 2024-05-29 15:49 | PM.EVENT ---
Event Note Date of Service: 05/29/24 Event Note: Day hospitalist update S: chest pain resolved; endorses dizziness tinnitus x4-5 yr; no PCP O: Temp Pulse Resp BP Pulse Ox O2 Del Method 98.2 F 75 18 147/96 H 98 Room Air 05/29/24 15:22 05/29/24 15:22 05/29/24 15:22 05/29/24 15:22 05/29/24 15:22 05/29/24 15:22 Gen: in no acute distress HEENT: sclera anicteric, moist mucus membranes Neck: supple Lungs: clear to auscultation bilaterally Heart: regular rate and rhythm, no murmurs Abd: soft, non-tender, non-distended Ext: no edema Skin: warm/well-perfused Neuro: alert and oriented x3, no focal findings Psych: appropriate affect A/P: d1 for 58yo M with no primary care and no chronic PMHx, hx cocaine abuse, presenting with chest tightness, exertional dyspnea, and lightheadedness/dizziness HTN, new dx - improved on amlodipine troponin indeterminate - suspect due to uncontrolled HTN but TTE is pending dizziness - chronic; PT eval; outpt ENT eval hypoK - replete PO microscopic hematuria - repeat UA AUD without acute withdrawal cocaine abuse - prn CIWA, thiamine, Addiction Medicine consult; screen HBV/HCV/HIV tobacco abuse - declines NRT VTE ppx - enoxaparin dispo - TBD In my clinical judgment, the patient requires continued hospitalization for the following reasons: cardiac workup Time Spent With Patient Time: Total time managing care of this patient today ____ minutes.
[2024-05-29 17:50] LABS: Appearance Urine Clear; Color Urine Yellow; Glucose Urine UA Negative (Negative); Leukocyte Esterase Urine Small (1+) (Negative); Nitrite Urine Negative (Negative); PH 5.5 (5.0-9.0); Specific Gravity - Urine 1.025 (1.005-1.025); UMIC TRIGGER UACC YES; Urine Blood Trace (Negative); Urine Ketones Trace mg/dL (Negative); Urine Protein 30 (1+) mg/dL (Neg-Trace)
[2024-05-29 17:52] LABS: Bacteria Urine None Seen (None Seen); UACC Culture Trigger YES; WBC Urine 21-50 /HPF (0-5)
[2024-05-30] VITALS (8 sets, daily range): BP systolic 127–148; BP diastolic 81–99; PULSE 60–80; RESP 16–20; TEMP 36.5–37.2; O2SAT 95–98
[2024-05-30] MEDS: Enoxaparin Sodium 40 MG/0.4 ML SYRINGE SUBCUT (00:56)
[2024-05-30 06:56] LABS: Anion Gap 10 (12-20); Blood Urea Nitrogen 22 mg/dL (9-16); Calcium 8.6 mg/dL (8.4-10.2); Carbon Dioxide 24 mmol/L (22-29); Chloride 105 mmol/L (96-108); Creatinine Clr Calc Pharmacy 87.8; Estimated Glomerular Filt Rate 58; Glucose Random 92 mg/dL (60-115); Potassium 3.9 mmol/L (3.3-5.1); Sodium 135 mmol/L (135-145)
--- NOTE | 2024-05-30 07:00 | CA_ITS ---
Transthoracic Echocardiogram Patient (Last, First, Middle): Kenji Cope J Gender: Male Date of : 1965 Age: 58 Procedure Date: 05/30/2024 Procedure Type: Transthoracic [place] [facility] [place]: 187.96 cm Weight: 117.48 kg BSA: 2.43 m2 Heart Rate: 65 bpm BP: 141 / 87 mmHg Table Runner: SB Referring MD: Anupam Nicole MD Risk Intern: Dell Tate MD Symptoms: chest pressure, tn elev, r/o RWMAs Study Quality: Adequate w contrast ECG Rhythm: Sinus Conclusions: - 1. Normal LV ejection fraction of 55-60% with severe left ventricular hypertrophy with pseudonormal filling pattern with possible basal inferior inferolateral hypokinesis 2. Mildly dilated left atrium 3. Mitral annular calcification noted with normal cardiac Dopplers 4. Mildly dilated ascending aorta 4.1 cm 5. No pericardial effusion Findings Procedure Information Contrast agent, definity, is being given per protocol without apparent complications. Left Ventricle Normal left ventricular size and systolic function. There is severely increased left ventricular wall thickness. The visually estimated ejection fraction is between 55-60%. Spectral Doppler is indicative of a pseudonormal filling pattern. possible basal inferior and inferolateral wall hypokinesis although this could be due to off axis views Wall Motion Rest Echo Findings All wall segments showed normal motion. Right Ventricle Normal right ventricular cavity size and systolic function. Atria The left atrium is mildly dilated. There is no evidence of interatrial shunt. The right atrium is normal in size. Aortic Valve Normal aortic valve structure and function. There is no aortic valve stenosis. There is no aortic valve regurgitation. Mitral Valve There is mild anterior and moderate posterior mitral leaflet thickening. There is moderate mitral annular calcification. There is trace mitral valve regurgitation. There is no mitral valve stenosis. Pulmonic Valve The pulmonic valve was not well visualized. Tricuspid Valve The tricuspid valve was not well visualized. Tricuspid regurgitation envelope is inadequate for calculation of right ventricular systolic pressure. Great Vessels The pulmonary artery was not well visualized. There is mild dilatation of the ascending aorta measuring 4.10 cm. Venous The inferior vena cava is normal in size and collapses greater than 50% with inspiration. Pericardium/Pleural There is no evidence of pericardial effusion. Prior Study Comparison No prior study available for comparison. Measurements 2D Linear Measurements IVSd: 1.66 0.6-0.9/0.6-1.0 cm LVIDd: 5.28 3.9-5.3/4.2-5.9 cm LVIDd Index: 2.17 2.4-3.2/2.2-3.1 cm/m2 LVIDs: 4.21 2.0-3.6 cm LVPWd: 1.61 0.7-1.1 cm LA Diam: 4.90 2.7-3.8/3.0-4.0 cm LAIDs Index: 2.02 1.5-2.3 cm/m2 LV Mass: 474.40 67-162/88-224 g LV Mass Index: 195.23 43-95/49-115 g/m2 LVOT Diam: 2.40 3.0+(-)1.3 cm 2D Systolic Function EF 4C: 59.40 >55% EF 2C: 53.70 >55% EF BiP: 57.00 >55% Mitral Valve MV Pk E: 0.58 MV PK A: 0.46 MV Decel Time: 245.00 E/A: 1.30 E'Medial: 3.44 E/E' Med: 16.80 PHT: 72.00 MVA PHT: 3.06 Decel [place]: 2.36 Aortic Valve AoV Pk Jason: 1.19 AoV Pk Grad: 6.00 DONNA: 3.00 LVOT LVOT Pk Jason: 0.77 LVOT Mn Jason: 0.52 LVOT VTI: 0.14 LVOT Pk Grad: 2.00 LVOT Mn Grad: 1.00 LVOT Diam: 2.40 LVOT Area: 4.52 Diastolic Function MV Pk E: 0.58 MV Pk A: 0.46 E/A: 1.30 E'Medial: 3.44 E/E' Med: 16.80 Right Ventricle TAPSE (mm): 18.60 TVS' Jason: 15.40 Tricuspid Valve RA Press: 8.00 Great Vessels Aorta Sinus of Valsalva: 3.20 2.0-3.5 cm Ao Asc: 4.10 2.1-3.4 cm Pulmonary Valve PV Pk Jason: 0.70 Peak PV Grad: 2.00 Updated in Other Vendor System with Status of Final Dell Tate MD electronically signed on 05/30/2024 12:46:05 PM with status of Final
[2024-05-30 07:24] LABS: HBS Num1 1.72 mIU/mL (0-7.99); HBc Num1 0.07 S/CO (0.00-0.79); HBsAGNum1 0.36 S/CO (0.00-0.99); HIV AB/AG Nonreactive (Nonreactive); HIV Num 1 0.09 S/CO (0.00-0.99); Hepatitis B Core Antibody Nonreactive (Nonreactive); Hepatitis B Surface Antigen Negative (Negative); ~HepC Num1 0.11 S/CO (0.00-0.79); ~Hepatitis B Surface Antibody NONREACTIVE (Nonreactive); ~Hepatitis C Antibody Nonreactive (Nonreactive)
[2024-05-30] MEDS: amLODIPine Besylate 10 MG TABLET PO (08:46)
[2024-05-30] MEDS: 0.9 % Sodium Chloride Flush 3 ML SYRINGE IVFLUSH ×3 (08:46→21:13)
--- NOTE | 2024-05-30 13:23 | P.PNIM_ITS ---
Subjective Subjective Date of Service: 05/30/24 Interval History: BP improved minimal chest tightness c/o dizziness, tinnitus dating back years Review of Systems Review of Systems: Yes all other systems are reviewed and are negative Physical Exam 2 Vital Signs: Vital Signs: Last Vital Signs Temp 98.6 F 05/30/24 11:01 Pulse 78 05/30/24 11:22 Resp 20 05/30/24 11:01 BP 143/95 H 05/30/24 11:22 Pulse Ox 98 05/30/24 11:01 O2 Del Method Room Air 05/30/24 11:01 BMI result Body Mass Index 33.3 Gen: in no acute distress HEENT: sclera anicteric, moist mucus membranes Neck: supple Lungs: clear to auscultation bilaterally Heart: regular rate and rhythm, no murmurs Abd: soft, non-tender, non-distended Ext: no edema Skin: warm/well-perfused Neuro: alert and oriented x3, no focal findings Psych: appropriate affect Objective Data Active Medications Acetaminophen (Acetaminophen 325 Mg Tablet) 650 mg PO Q6H PRN PRN Reason: Pain, Mild 1-3,fever,headache Amlodipine Besylate (Amlodipine Besylate 10 Mg Tablet) 10 mg PO DAILY [facility]; Protocol Last Admin: 05/30/24 08:46 Dose: 10 mg Documented By: RONNIE Calcium Carbonate (Calcium Carbonate 750 Mg Tab.Chew) 750 mg PO Q4H PRN PRN Reason: Heartburn Enoxaparin Sodium (Enoxaparin Sodium 40 Mg/0.4 Ml Syringe) 40 mg SUBCUT Q24H [facility] Last Admin: 05/30/24 00:56 Dose: 40 mg Documented By: RICHA Folic Acid (Folic Acid 1 Mg Tablet) 1 mg PO DAILY [facility] Last Admin: 05/30/24 08:47 Dose: Not Given Documented By: RONNIE Non-Admin Reason: Patient Refused Magnesium Hydroxide (Milk Of Magnesia 30 Ml Oral.Susp) 30 ml PO DAILY PRN PRN Reason: Constipation Melatonin (Melatonin 3 Mg Tablet) 6 mg PO BEDTIME PRN PRN Reason: Insomnia Ondansetron HCl (Ondansetron Hcl 4 Mg/2 Ml Vial) 4 mg IVPUSH Q8H PRN PRN Reason: Nausea and Vomiting Sodium Chloride (0.9 % Sodium Chloride Flush 3 Ml Syringe) 3 ml IVFLUSH QSHIFT [facility] Last Admin: 05/30/24 08:46 Dose: 3 ml Documented By: RONNIE Thiamine HCl (Thiamine Hcl 100 Mg Tablet) 100 mg PO DAILY [facility] Last Admin: 05/30/24 08:48 Dose: Not Given Documented By: RONNIE Non-Admin Reason: Patient Refused Labs 05/29/24 05:12 05/30/24 06:29 Labs: Laboratory Results - last 24 hr 05/29/24 05/30/24 17:35 06:29 Anion Gap 10 L Estim Creat Clear Calc 87.8 Estimated GFR 58 Random Glucose 92 Calcium 8.6 Urine Color Yellow Urine Appearance Clear Urine pH 5.5 Ur Specific [place] 1.025 Urine Protein 30 (1+) H Urine Glucose (UA) Negative Urine Ketones Trace Urine Blood Trace H Urine Nitrite Negative Ur Leukocyte Esterase Small (1+) H Urine RBC 3-5 H Urine WBC 21-50 H Ur Squamous Epith Cells 3-5 Urine Bacteria None Seen Hyaline Casts 3-5 Hep Bs Antigen Negative Hep Bs Antibody NONREACTIVE Hep B Core Total Ab Nonreactive Hepatitis C Ab (EIA) Nonreactive HIV 1&2 Ab/P24 Ag 4thGn Nonreactive Microbiology Microbiology Results: Microbiology 05/29/24 18:38 Urine Culture - Preliminary Urine clean catch - Clean Catch Midstream Culture too young to evaluate. 05/28/24 Unknown Urine Culture - Final Urine clean catch - Clean Catch Midstream Assessment and Plan (1) HTN (hypertension): Status: Acute Plan d2 for 58yo M with no primary care and no chronic PMHx, hx cocaine abuse, presenting with chest tightness, exertional dyspnea, and lightheadedness/dizziness HTN, new dx - improved on amlodipine severe hypothyroidism, new dx - start LT4 1.6 mcg/kg daily; recheck TSH in 4-6 wk troponin indeterminate - suspect due to uncontrolled HTN. TTE shows possible basal inferior inferolateral hypokinesis; will consult Cardiology dizziness/tinnitus - chronic; outpt ENT eval; outpt PT hypoK - repleted microscopic hematuria - repeat UA AUD without acute withdrawal cocaine abuse - prn CIWA, thiamine, Addiction Medicine consulted; HBV/HCV/HIV screen negative tobacco abuse - declines NRT VTE ppx - enoxaparin dispo - plan home with outpt PT In my clinical judgment, the patient requires continued hospitalization for the following reasons: cardiac workup Pt found to have severe Total time managing care of this patient today: 35 minutes. Quality Stroke Does the patient have a stroke diagnosis?: No VTE Prior VTE?: No VTE Risk Level:: Medical - moderate - high VTE Device Contraindication: Treatment Not Indicated VTE Drug Contraindication: N/A - Med Ordered
[2024-05-30 13:50] LABS: Troponin-I High Sensitivity 57.5 ng/L (<3.5-35.0)
[2024-05-30 13:51] LABS: Estimated Average Glucose 94 mg/dL; Hemoglobin A1c % 4.9 % (<6.0)
[2024-05-30 14:00] LABS: Cholesterol 211 mg/dL (<200); HDL Cholesterol 66 mg/dL (>40); LDL Cholesterol Calculated 128 mg/dL (<100); Triglycerides 88 mg/dL (<150)
--- NOTE | 2024-05-30 14:09 | MHC.CM.PN ---
EMR REVIEWED, CM MET W/PT TO DELIVER PRINT OUT OF NEWLY ACTIVE MEDICAID INFO INCLUDING ID# AND [facility] PROVIDER LIST, CM ATTEMPTED TO DISCUSS DISPO HOWEVER PT REPORTING HE WILL NOT LEAVE HOSPITAL BEFORE TOMORROW 05/31, HOSPITALIST UPDATED, PLAN FOR PT TO REMAIN ANOTHER NIGHT FOR FURTHER WORKUP, CM WILL CONT TO FOLLOW DC NEEDS.
--- NOTE | 2024-05-30 14:44 | PM.PSYCN ---
History of Present Illness Date of Service: 05/31/2024 Chief Complaint: chest tightness Discussed with referring provider: Yes Sources of Information: patient interviewed, chart reviewed and crisis/core team assessment reviewed HPI Narrative: Mr. Cope is a 58 year-old male with hx of alcohol use, who reports he has not seen a PCP in more than 20 years. He reports he has been feeling weak, fatigue, vertigo. He reports his friends encourage him to come to the hospital. CBC with macrocytic anemia, thrombocytopenia. CMP no electrolyte abnormality, BUN 22, Cr 1.28, creatinine clearance 87.8. LFTs AST 58, ALT 30, alkaline phosphatase 58. Utox positive for cocaine. BAL less than 10. He reports last drink was 05/24/2024. He denies s/s of alcohol withdrawal. Psychiatry asked to see patient due to depression. He was seen in his room. He reports he does not do much during the day. He reports he has been self medicating my whole life. He reports he started using alcohol to help with sleep. He still says that he uses alcohol for this purpose. 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 He reports he feels dizzy when he climbs up stairs and weak, poor coordination and unsteady gait when walking. He reports he feels tired most of the day. He reports he has been afraid of going to the doctor, but says that his friend keeping telling him to do it. He endorses depressed mood when thinks about his health deteriorating, and his unhealthy life style. He denies suicidal or homicidal ideation. No hx of VH/AH. No delusional content noted or reported. He reports poor sleep when not drinking 1/2 pint of vodka. Past Psychiatric History: Inpt: none OP: none Past trial: none Hx of suicide attempts: none Medical Evaluation Reviewed: Yes PMF Family History: none Social History: lives on his own. No children. 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 Substance History: alcohol use disorder for several years. cocaine: on and off Opioid: he reports used in the past but not now. Trauma History: not disclose Diagnostics Vital Signs (24Hr): Vital Signs - 24 hr 05/29/24 15:22 05/29/24 19:35 05/30/24 00:00 Temperature 98.2 F 98.7 F 98.8 F Pulse Rate 75 65 68 Respiratory Rate 18 18 18 Blood Pressure 147/96 H 131/83 148/99 H Pulse Oximetry 98 97 97 Oxygen Delivery Method Room Air Room Air Room Air 05/30/24 03:42 05/30/24 07:15 05/30/24 10:50 Temperature 98.5 F 98.9 F Pulse Rate 65 60 70 Respiratory Rate 18 18 Blood Pressure 133/83 141/87 H 142/92 H Pulse Oximetry 98 98 Oxygen Delivery Method Room Air Room Air 05/30/24 11:01 05/30/24 11:22 05/30/24 11:22 Temperature 98.6 F Pulse Rate 70 80 78 Respiratory Rate 20 Blood Pressure 144/90 H 141/97 H 143/95 H Pulse Oximetry 98 Oxygen Delivery Method Room Air BMI result Body Mass Index 33.3 Labs 05/29/24 05:12 05/30/24 06:29 Labs: Laboratory Results - last 48 hr 05/28/24 05/28/24 05/28/24 19:01 19:15 21:34 WBC 6.2 RBC 3.32 L Hgb 11.9 L Hct 33.7 L MCV 101.5 H MCH 35.8 H MCHC 35.3 RDW 14.5 Plt Count 108 L MPV 8.3 L Immature Gran % (Auto) 0.3 Neut % (Auto) 79.9 H Lymph % (Auto) 7.6 L [place] % (Auto) 8.1 Eos % (Auto) 3.6 Baso % (Auto) 0.5 Lymph # (Auto) 0.5 L [place] # (Auto) 0.5 Eos # (Auto) 0.2 Baso # (Auto) 0.0 Abs Immat Gran (auto) 0.02 Absolute Neuts (auto) 4.9 Absolute Nucleated RBC 0.000 Nucleated RBC % (auto) 0.0 Sodium 137 Potassium 4.4 Chloride 105 Carbon Dioxide 25 Anion Gap 11 L BUN 24 H Creatinine 1.33 Estim Creat Clear Calc 83.8 Estimated GFR 56 Random Glucose 103 Estimat Average Glucose Hemoglobin A1c % Calcium 9.4 Magnesium 2.1 Total Bilirubin 0.8 AST 57 H ALT 30 Alkaline Phosphatase 58 Troponin I High Sens 88.8 H Total Protein 7.4 Albumin 4.5 Triglycerides Cholesterol LDL Cholesterol, Calc HDL Cholesterol Vitamin B12 Folate Urine Color Yellow Urine Appearance Clear Urine pH 5.5 Ur Specific [place] 1.020 Urine Protein 30 (1+) H Urine Glucose (UA) 100 H Urine Ketones Trace Urine Blood Moderate (2+) H Urine Nitrite Negative Ur Leukocyte Esterase Small (1+) H Urine RBC 0-2 Urine WBC 0-5 Ur Squamous Epith Cells 6-10 Urine Bacteria None Seen Hyaline Casts 0-2 Urine Opiates Screen Not Detected Ur Buprenorphine Scrn Not Detected Ur Oxycodone Screen Not Detected Urine Methadone Screen Not Detected Urine Fentanyl Screen Not Detected Ur Barbiturates Screen Not Detected Ur Phencyclidine Scrn Not Detected Ur Amphetamines Screen Not Detected U Benzodiazepines Scrn Not Detected Urine Cocaine Screen POSITIVE H U Marijuana (THC) Screen Not Detected Ethyl Alcohol < 10 Hep Bs Antigen Hep Bs Antibody Hep B Core Total Ab Hepatitis C Ab (EIA) HIV 1&2 Ab/P24 Ag 4thGn Influenza Type A (PCR) NEGATIVE Influenza Type B (PCR) NEGATIVE RSV RNA Qual (PCR) NEGATIVE SARS-CoV-2 RNA (RT-PCR) NEGATIVE 05/28/24 05/29/24 05/29/24 23:36 05:12 17:35 WBC 6.4 RBC 3.34 L Hgb 12.0 L Hct 34.3 L MCV 102.7 H MCH 35.9 H MCHC 35.0 RDW 14.2 Plt Count 119 L MPV 9.0 L Immature Gran % (Auto) 0.5 H Neut % (Auto) 73.3 H Lymph % (Auto) 11.8 L [place] % (Auto) 7.9 Eos % (Auto) 5.9 H Baso % (Auto) 0.6 Lymph # (Auto) 0.8 L [place] # (Auto) 0.5 Eos # (Auto) 0.4 Baso # (Auto) 0.0 Abs Immat Gran (auto) 0.03 Absolute Neuts (auto) 4.7 Absolute Nucleated RBC 0.000 Nucleated RBC % (auto) 0.0 Sodium 137 Potassium 3.1 L D Chloride 107 Carbon Dioxide 22 Anion Gap 11 L BUN 24 H Creatinine 1.10 Estim Creat Clear Calc 101.3 Estimated GFR > 60 Random Glucose 113 Estimat Average Glucose Hemoglobin A1c % Calcium 9.0 Magnesium 2.0 Total Bilirubin AST ALT Alkaline Phosphatase Troponin I High Sens 79.1 H 79.8 H Total Protein Albumin Triglycerides Cholesterol LDL Cholesterol, Calc HDL Cholesterol Vitamin B12 342 Folate 10.3 Urine Color Yellow Urine Appearance Clear Urine pH 5.5 Ur Specific [place] 1.025 Urine Protein 30 (1+) H Urine Glucose (UA) Negative Urine Ketones Trace Urine Blood Trace H Urine Nitrite Negative Ur Leukocyte Esterase Small (1+) H Urine RBC 3-5 H Urine WBC 21-50 H Ur Squamous Epith Cells 3-5 Urine Bacteria None Seen Hyaline Casts 3-5 Urine Opiates Screen Ur Buprenorphine Scrn Ur Oxycodone Screen Urine Methadone Screen Urine Fentanyl Screen Ur Barbiturates Screen Ur Phencyclidine Scrn Ur Amphetamines Screen U Benzodiazepines Scrn Urine Cocaine Screen U Marijuana (THC) Screen Ethyl Alcohol Hep Bs Antigen Hep Bs Antibody Hep B Core Total Ab Hepatitis C Ab (EIA) HIV 1&2 Ab/P24 Ag 4thGn Influenza Type A (PCR) Influenza Type B (PCR) RSV RNA Qual (PCR) SARS-CoV-2 RNA (RT-PCR) 05/30/24 05/30/24 05/30/24 06:29 12:29 13:25 WBC RBC Hgb Hct MCV MCH MCHC RDW Plt Count MPV Immature Gran % (Auto) Neut % (Auto) Lymph % (Auto) [place] % (Auto) Eos % (Auto) Baso % (Auto) Lymph # (Auto) [place] # (Auto) Eos # (Auto) Baso # (Auto) Abs Immat Gran (auto) Absolute Neuts (auto) Absolute Nucleated RBC Nucleated RBC % (auto) Sodium 135 Potassium 3.9 D Chloride 105 Carbon Dioxide 24 Anion Gap 10 L BUN 22 H Creatinine 1.28 Estim Creat Clear Calc 87.8 Estimated GFR 58 Random Glucose 92 Estimat Average Glucose 94 Hemoglobin A1c % 4.9 Calcium 8.6 Magnesium Total Bilirubin AST ALT Alkaline Phosphatase Troponin I High Sens 57.5 H Total Protein Albumin Triglycerides 88 Cholesterol 211 H LDL Cholesterol, Calc 128 H HDL Cholesterol 66 Vitamin B12 Folate Urine Color Urine Appearance Urine pH Ur Specific [place] Urine Protein Urine Glucose (UA) Urine Ketones Urine Blood Urine Nitrite Ur Leukocyte Esterase Urine RBC Urine WBC Ur Squamous Epith Cells Urine Bacteria Hyaline Casts Urine Opiates Screen Ur Buprenorphine Scrn Ur Oxycodone Screen Urine Methadone Screen Urine Fentanyl Screen Ur Barbiturates Screen Ur Phencyclidine Scrn Ur Amphetamines Screen U Benzodiazepines Scrn Urine Cocaine Screen U Marijuana (THC) Screen Ethyl Alcohol Hep Bs Antigen Negative Hep Bs Antibody NONREACTIVE Hep B Core Total Ab Nonreactive Hepatitis C Ab (EIA) Nonreactive HIV 1&2 Ab/P24 Ag 4thGn Nonreactive Influenza Type A (PCR) Influenza Type B (PCR) RSV RNA Qual (PCR) SARS-CoV-2 RNA (RT-PCR) Medications Medications Current Medications Acetaminophen (Acetaminophen 325 Mg Tablet) 650 mg PO Q6H PRN PRN Reason: Pain, Mild 1-3,fever,headache Amlodipine Besylate (Amlodipine Besylate 10 Mg Tablet) 10 mg PO DAILY [facility]; Protocol Last Admin: 05/30/24 08:46 Dose: 10 mg Calcium Carbonate (Calcium Carbonate 750 Mg Tab.Chew) 750 mg PO Q4H PRN PRN Reason: Heartburn Enoxaparin Sodium (Enoxaparin Sodium 40 Mg/0.4 Ml Syringe) 40 mg SUBCUT Q24H [facility] Last Admin: 05/30/24 00:56 Dose: 40 mg Folic Acid (Folic Acid 1 Mg Tablet) 1 mg PO DAILY [facility] Last Admin: 05/30/24 08:47 Dose: Not Given Magnesium Hydroxide (Milk Of Magnesia 30 Ml Oral.Susp) 30 ml PO DAILY PRN PRN Reason: Constipation Melatonin (Melatonin 3 Mg Tablet) 6 mg PO BEDTIME PRN PRN Reason: Insomnia Ondansetron HCl (Ondansetron Hcl 4 Mg/2 Ml Vial) 4 mg IVPUSH Q8H PRN PRN Reason: Nausea and Vomiting Sodium Chloride (0.9 % Sodium Chloride Flush 3 Ml Syringe) 3 ml IVFLUSH QSHIFT [facility] Last Admin: 05/30/24 08:46 Dose: 3 ml Thiamine HCl (Thiamine Hcl 100 Mg Tablet) 100 mg PO DAILY [facility] Last Admin: 05/30/24 08:48 Dose: Not Given Allergies Allergies Allergy/AdvReac Type Severity Reaction Status Date / Time No Known Allergies Allergy Verified 05/28/24 17:56 Assessment & Plan Assessment & Plan (1) MDD (major depressive disorder), recurrent episode, moderate: Status: Acute Code(s): F33.1 - Major depressive disorder, recurrent, moderate (2) Alcohol use disorder: Status: Acute Code(s): F10.90 - Alcohol use, unspecified, uncomplicated Plan Mr. Cope is a 58 year-old male with hx of alcohol and cocaine use, depression. He has not been to PCP in over 20 years. He endorses a number of physical concerns unsteady gait even when not using alcohol, weakness, fatigue. His medical health is unclear as he has not gone to PCP in decades. Ordered basic labs including TSH, Lipid panel, A1C. He is not interested at this point to take medication for depression. He reports he does not like idea of medications that can alter his brain. He is okay to continue new medical medications for hypertension. PLAN 1. Pt declines further referral for mental health services. 2. He does agree to follow up for first time in several years to follow up with PCP. Total time managing care of this patient today ____ minutes.
[2024-05-30 15:22] LABS: Free T4 (Free Thyroxine) < 0.42 ng/dL (0.71-1.85)
[2024-05-30 15:31] LABS: TSH reflex Free T4 > 100.00 uIU/mL (0.32-4.0)
[2024-05-30] MEDS: Levothyroxine Sodium 175 MCG TABLET PO (18:02)
[2024-05-31] VITALS: BP 154/98; PULSE 72; RESP 16; TEMP 36.6; O2SAT 97
[2024-05-31] MEDS: Enoxaparin Sodium 40 MG/0.4 ML SYRINGE SUBCUT (01:52)
[2024-05-31 03:01] VITALS: BP 135/88; PULSE 61; RESP 16; TEMP 36.8; O2SAT 97
[2024-05-31] MEDS: Levothyroxine Sodium 175 MCG TABLET PO (07:03)
[2024-05-31 07:10] VITALS: BP 109/68; PULSE 56; RESP 18; TEMP 37; O2SAT 95
[2024-05-31 09:28] LABS: Anion Gap 9 (12-20); Blood Urea Nitrogen 22 mg/dL (9-16); Carbon Dioxide 26 mmol/L (22-29); Chloride 107 mmol/L (96-108); Estimated Glomerular Filt Rate > 60; Glucose Random 93 mg/dL (60-115); Sodium 138 mmol/L (135-145)
[2024-05-31] MEDS: amLODIPine Besylate 10 MG TABLET PO (10:50)
[2024-05-31] MEDS: Folic Acid 1 MG TABLET PO (10:50)
[2024-05-31] MEDS: Thiamine HCL 100 MG TABLET PO (10:50)
[2024-05-31] MEDS: 0.9 % Sodium Chloride Flush 3 ML SYRINGE IVFLUSH (10:52)
[2024-05-31 11:00] VITALS: BP 129/82; PULSE 69; RESP 20; TEMP 36.7; O2SAT 95
--- NOTE | 2024-05-31 12:35 | PM.CNCAR ---
History of Present Illness History of Present Illness Date of Service: 05/31/24 Consult reason: hypertension and troponin elevation Chief complaint: chest tightness Narrative: I was consulted to see Kenji in cardiology consultation today due to mildly elevated troponin with EKG changes and hypertensive urgency. Patient was not seen a primary care physician for more than 20 years. Says never checked his blood pressure at home. He used to use cocaine in the past currently not using any cocaine as per him. However continues to smoke which he has has stopped since admission he says. Patient came into the hospital with not feeling well with acute chest tightness with significantly elevated blood pressure. Initial troponins were minimally elevated but remained mostly flat and downtrending. EKG showed suggestive of T-wave inversion in the inferolateral leads which are most suggestive of repolarization abnormality. Echo was done which shows normal LV ejection fraction with severe left ventricular hypertrophy consistent hypertensive heart disease with possible basal inferior inferolateral wall motion abnormality which could be possibly related to off axis views. Patient was started on amlodipine with significant improvement in his blood pressure. Currently not having any symptoms. Review of Systems Constitutional: Constitutional: Reports no additional constitutional complaints Eyes: Eyes: Reports no additional eye complaints Cardiovascular: Cardiovascular: Reports chest pain at rest, Denies rapid heart rate, Denies lightheadedness, Denies Loss of Consciousness, Denies palpitations, Denies dyspnea on exertion and Denies orthopnea Respiratory: Respiratory: Reports no additional respiratory complaints and Denies dyspnea on exertion Genitourinary: Genitourinary: Reports no additional male genitourinary complaints Musculoskeletal: Musculoskeletal: Reports no additional musculoskeletal complaints Neurologic: Reports system reviewed and no additional complaints, except as documented Psychiatric: Psychiatric: Reports no additional psychiatric complaints Endocrine: Endocrine: Denies palpitations [facility] Social History Social History Household Members: Other Household Members Other:: Father Housing: House Alcohol intake: current Alcohol intake frequency: 0-2 drinks per day Alcohol type: hard liquor Patient Tobacco Use Status: Current everyday Tobacco user Tobacco use type: Cigarette e-Cigarette/Vaping Use: Never Used Substance Use Type: Crack/Cocaine and Marijuana service: No Meds Allergies Allergy/AdvReac Type Severity Reaction Status Date / Time No Known Allergies Allergy Verified 05/28/24 17:56 Active Medications: Current Medications Acetaminophen (Acetaminophen 325 Mg Tablet) 650 mg PO Q6H PRN PRN Reason: Pain, Mild 1-3,fever,headache Amlodipine Besylate (Amlodipine Besylate 10 Mg Tablet) 10 mg PO DAILY [facility]; Protocol Last Admin: 05/31/24 10:50 Dose: 10 mg Calcium Carbonate (Calcium Carbonate 750 Mg Tab.Chew) 750 mg PO Q4H PRN PRN Reason: Heartburn Enoxaparin Sodium (Enoxaparin Sodium 40 Mg/0.4 Ml Syringe) 40 mg SUBCUT Q24H [facility] Last Admin: 05/31/24 01:52 Dose: 40 mg Folic Acid (Folic Acid 1 Mg Tablet) 1 mg PO DAILY [facility] Last Admin: 05/31/24 10:50 Dose: 1 mg Levothyroxine Sodium (Levothyroxine Sodium 175 Mcg Tablet) 175 mcg PO DAILY@0600 [facility] Last Admin: 05/31/24 07:03 Dose: 175 mcg Magnesium Hydroxide (Milk Of Magnesia 30 Ml Oral.Susp) 30 ml PO DAILY PRN PRN Reason: Constipation Melatonin (Melatonin 3 Mg Tablet) 6 mg PO BEDTIME PRN PRN Reason: Insomnia Ondansetron HCl (Ondansetron Hcl 4 Mg/2 Ml Vial) 4 mg IVPUSH Q8H PRN PRN Reason: Nausea and Vomiting Sodium Chloride (0.9 % Sodium Chloride Flush 3 Ml Syringe) 3 ml IVFLUSH QSHIFT [facility] Last Admin: 05/31/24 10:52 Dose: 3 ml Thiamine HCl (Thiamine Hcl 100 Mg Tablet) 100 mg PO DAILY [facility] Last Admin: 05/31/24 10:50 Dose: 100 mg Physical Exam Vital Signs: Vital Signs: Last Vital Signs Temp 98.0 F 05/31/24 11:00 Pulse 69 05/31/24 11:00 Resp 20 05/31/24 11:00 BP 129/82 05/31/24 11:00 Pulse Ox 95 05/31/24 11:00 O2 Del Method Room Air 05/31/24 11:00 BMI result Body Mass Index 33.3 Const: General: cooperative, comfortable, no acute distress, alert and awake Nutritional Appearance: obese Orientation/consciousness: patient oriented x3 Limitations: no limitations HEENT: Head: Yes normocephalic and Yes atraumatic Neck: Neck: Yes trachea midline, Yes supple and Yes no JVD Resp: Effort & Inspection: normal respiratory effort Auscultation: clear to auscultation bilaterally Cardio: Jugular venous distension: no JVD Rate: regular rate Rhythm: regular rhythm Heart sounds: S1 normal heart sound present, S2 normal heart sound present, no click, no gallops, no murmurs and Other heart sounds present (S4 present) GI: Auscultation: normal bowel sounds Skin: General skin exam: no rashes or lesions noted Neuro: General: patient oriented x3 and no focal motor deficits Extrem: General: Yes no clubbing, cyanosis or edema Psych: Appearance: grossly normal Objective Labs and Meds 05/29/24 05:12 05/31/24 08:44 Lab results: Laboratory Results - last 24 hr 05/30/24 05/30/24 05/31/24 12:29 13:25 08:44 Sodium 138 Potassium 4.0 Chloride 107 Carbon Dioxide 26 Anion Gap 9 L BUN 22 H Creatinine 1.07 Estim Creat Clear Calc 105.0 Estimated GFR > 60 Random Glucose 93 Estimat Average Glucose 94 Hemoglobin A1c % 4.9 Calcium 9.0 Total Creatine Kinase 820 H 760 H Troponin I High Sens 57.5 H Triglycerides 88 Cholesterol 211 H LDL Cholesterol, Calc 128 H HDL Cholesterol 66 TSH > 100.00 H Free T4 < 0.42 L Assessment and Plan (1) Elevated troponin: Status: Acute Minimally elevated troponin in this elderly gentleman in the setting of significant hypertensive heart disease severe LVH with symptoms of chest tightness most likely related to subendocardial ischemia from hypertension as well as LVH. Likely this is acute coronary syndrome in wall. This was discussed with the patient. However given his troponin elevation multiple risk factors will require ischemic workup which can be done as an outpatient. Will schedule him for exercise myocardial perfusion imaging as an outpatient. This was discussed with him. Importance of follow-up was discussed. Importance of compliance with medication was discussed. Start low-dose aspirin as well as moderate intensity statin with atorvastatin 20-40 mg. Complete cessation smoking as well alcohol use was discussed. Regular follow-up with primary care physician as well as with cardiology team was discussed as well. (2) Hypertensive heart disease: Status: Acute Severe hypertensive heart disease most likely related to penitentiary uncontrolled blood pressure in this middle-aged man with easily controlled blood pressure at this point time on current therapy. Continue current therapy for blood pressure control. Low-salt diet was discussed. No signs of congestive heart failure but high risk for development of congestive heart failure in future was discussed with him. Importance of compliance with medication was discussed. Will set him up for outpatient follow-up. Thank you for allowing me to partake in his care Procedures Date of Service Date of Service: 05/31/24
--- NOTE | 2024-05-31 12:39 | P.DS_ITS ---
DS: Providers Provider Date of Service: 05/31/24 Date of admission: 05/29/24 00:49 Date of discharge: 05/31/24 Primary care physician: Unknown Physician Consults: 05/29/24 00:51 Addiction Medicine Provider Routine Consulting Provider: Addiction Covering Reason for consultation: cocaine use disorder 05/30/24 09:05 Inpt - Recovery Team Routine Comment: Reason for consultation: SUELLEN eval 05/30/24 11:21 Consult to Psychiatry Routine Consulting Provider: [facility] Psych Covering Reason for consultation: depression/anxiety 05/30/24 13:22 Consult to Cardiology Routine Consulting Provider: [facility] Reason for consultation: chest tight, basal inferior inferolateral hypokinesis, Tnelev- HTN? 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 He also experiences occasional chest tightness with exertion but has not had any chest pain today. He denies any infectious symptoms including fever, chills, nausea or vomiting. No diarrhea or urinary symptoms including frequency, urgency or dysuria. He has numbness in his feet bilaterally and reports it has been present for years. He does have a brother with a history of diabetes but has never been tested for this in the past. He admits to frequent alcohol use, 1/2 a pt daily, no history of withdrawal reports he can go days without without any symptoms. He also uses occasional cocaine, last use was 5 days ago. He has been smoking his whole life and reports that he is quitting cold turkey starting today. He reports occasional rectal bleeding, bright red blood separate from the stool with straining for a bowel movement and variable bowel consistency, mostly constipation sometimes diarrhea. Currently feels well but is very concerned due to his lack of medical care for many years. He reports sudden hair loss on extremities and difficulties with balance. 58yo M with no primary care and no chronic PMHx, hx cocaine abuse, presenting with chest tightness, exertional dyspnea, and lightheadedness/dizziness. He was found to markedly hypertensive and was thus started on amlodipine for blood pressure control. He was also found to have severe hypothyroidism with some hypothyroid myopathy and was started on levothyroxine replacement 175 mcg/d with plan for repeat TSH in 4-6 weeks. Troponin level indeterminate, flat; likely due to uncontrolled hypertension. TTE showed normal LVEF but severe LVH likely from hypertension; there was also possible basal inferolateral hypokinesis. Cardiology was consulted and will arrange outpatient workup; in the meanwhile, he was placed on aspirin and atorvastatin. Dizziness and tinnitus are chronic issues that ought to be addressed by outpatient ENT consultation. He was seen by the Psychiatry team and the Addiction Team and declined mental health referral. He was counseled to avoid alcohol and cocaine as well as to quit smoking. He had no signs of alcohol withdrawal. He was urged to establish primary care as soon as possible. Time Attestation Discharge Coordination Time (in mins): 35 Quality: Safe Use of Opioids Does Pt have an Active Cancer Diagnosis on the Problem List?: No Quality: Stroke Does the patient have a stroke diagnosis?: No Physical Exam Vital Signs: Vital Signs: Last Vital Signs Temp 98.0 F 05/31/24 11:00 Pulse 69 05/31/24 11:00 Resp 20 05/31/24 11:00 BP 129/82 05/31/24 11:00 Pulse Ox 95 05/31/24 11:00 O2 Del Method Room Air 05/31/24 11:00 BMI result Body Mass Index 33.3 Gen: in no acute distress HEENT: sclera anicteric, moist mucus membranes Neck: supple Lungs: clear to auscultation bilaterally Heart: regular rate and rhythm, no murmurs Abd: soft, non-tender, non-distended Ext: no edema Skin: warm/well-perfused Neuro: alert and oriented x3, no focal findings Psych: appropriate affect DS: Data Data Completed and Pending Labs on day of discharge: Laboratory Results WBC 6.4 X10*3/uL (4.8-10.8) 05/29/24 05:12 RBC 3.34 X10*6/uL (4.60-5.80) L 05/29/24 05:12 Hgb 12.0 g/dl (14.0-18.0) L 05/29/24 05:12 Hct 34.3 % (42.0-52.0) L 05/29/24 05:12 MCV 102.7 fL (80.0-98.0) H 05/29/24 05:12 MCH 35.9 pg (27.0-33.0) H 05/29/24 05:12 MCHC 35.0 g/dl (31.0-36.0) 05/29/24 05:12 RDW 14.2 % (11.0-16.0) 05/29/24 05:12 Plt Count 119 X10*3/uL (160-400) L 05/29/24 05:12 MPV 9.0 fL (9.4-12.4) L 05/29/24 05:12 Immature Gran % (Auto) 0.5 % (0.0-0.4) H 05/29/24 05:12 Neut % (Auto) 73.3 % (45-73) H 05/29/24 05:12 Lymph % (Auto) 11.8 % (20-40) L 05/29/24 05:12 [place] % (Auto) 7.9 % (2-11) 05/29/24 05:12 Eos % (Auto) 5.9 % (0-4) H 05/29/24 05:12 Baso % (Auto) 0.6 % (0-2) 05/29/24 05:12 Lymph # (Auto) 0.8 X10*3/uL (1.2-4.9) L 05/29/24 05:12 [place] # (Auto) 0.5 X10*3/uL (0.1-1.2) 05/29/24 05:12 Eos # (Auto) 0.4 X10*3/uL (0.0-0.4) 05/29/24 05:12 Baso # (Auto) 0.0 X10*3/uL (0.0-0.2) 05/29/24 05:12 Abs Immat Gran (auto) 0.03 X10*3/uL (0.00-0.03) 05/29/24 05:12 Absolute Neuts (auto) 4.7 x10*3/uL (2.0-8.3) 05/29/24 05:12 Absolute Nucleated RBC 0.000 X10*3/uL (0.0-0.012) 05/29/24 05:12 Nucleated RBC % (auto) 0.0 /100WBC (0.0-0.2) 05/29/24 05:12 Sodium 138 mmol/L (135-145) 05/31/24 08:44 Potassium 4.0 mmol/L (3.3-5.1) 05/31/24 08:44 Chloride 107 mmol/L (96-108) 05/31/24 08:44 Carbon Dioxide 26 mmol/L (22-29) 05/31/24 08:44 Anion Gap 9 (12-20) L 05/31/24 08:44 BUN 22 mg/dL (9-16) H 05/31/24 08:44 Creatinine 1.07 mg/dL (0.5-1.4) 05/31/24 08:44 Estim Creat Clear Calc 105.0 05/31/24 08:44 Estimated GFR > 60 05/31/24 08:44 Random Glucose 93 mg/dL (60-115) 05/31/24 08:44 Estimat Average Glucose 94 mg/dL 05/30/24 13:25 Hemoglobin A1c % 4.9 % (<6.0) 05/30/24 13:25 Calcium 9.0 mg/dL (8.4-10.2) 05/31/24 08:44 Magnesium 2.0 mg/dL (1.6-2.6) 05/29/24 05:12 Total Bilirubin 0.8 mg/dL (0.0-1.0) 05/28/24 19:01 AST 57 U/L (5-37) H 05/28/24 19:01 ALT 30 U/L (0-40) 05/28/24 19:01 Alkaline Phosphatase 58 U/L (39-117) 05/28/24 19:01 Total Creatine Kinase 760 U/L (38-174) H 05/31/24 08:44 Troponin I High Sens 57.5 ng/L (<3.5-35.0) H 05/30/24 12:29 Total Protein 7.4 g/dL (6.5-8.0) 05/28/24 19:01 Albumin 4.5 g/dL (3.5-5.0) 05/28/24 19:01 Triglycerides 88 mg/dL (<150) 05/30/24 13:25 Cholesterol 211 mg/dL (<200) H 05/30/24 13:25 LDL Cholesterol, Calc 128 mg/dL (<100) H 05/30/24 13:25 HDL Cholesterol 66 mg/dL (>40) 05/30/24 13:25 Vitamin B12 342 pg/mL (200-900) 05/29/24 05:12 Folate 10.3 ng/mL (> or = 4.0) 05/29/24 05:12 TSH > 100.00 uIU/mL (0.32-4.0) H 05/30/24 13:25 Free T4 < 0.42 ng/dL (0.71-1.85) L 05/30/24 13:25 Urine Color Yellow 05/29/24 17:35 Urine Appearance Clear 05/29/24 17:35 Urine pH 5.5 (5.0-9.0) 05/29/24 17:35 Ur Specific [place] 1.025 (1.005-1.025) 05/29/24 17:35 Urine Protein 30 (1+) mg/dL (Neg-Trace) H 05/29/24 17:35 Urine Glucose (UA) Negative mg/dL (Negative) 05/29/24 17:35 Urine Ketones Trace mg/dL (Negative) 05/29/24 17:35 Urine Blood Trace (Negative) H 05/29/24 17:35 Urine Nitrite Negative (Negative) 05/29/24 17:35 Ur Leukocyte Esterase Small (1+) (Negative) H 05/29/24 17:35 Urine RBC 3-5 /HPF (0-2) H 05/29/24 17:35 Urine WBC 21-50 /HPF (0-5) H 05/29/24 17:35 Ur Squamous Epith Cells 3-5 /HPF (0-2) 05/29/24 17:35 Urine Bacteria None Seen (None Seen) 05/29/24 17:35 Hyaline Casts 3-5 /LPF (0-2) 05/29/24 17:35 Urine Opiates Screen Not Detected (Not Detect) 05/28/24 19:15 Ur Buprenorphine Scrn Not Detected ng/mL (Not Detect) 05/28/24 19:15 Ur Oxycodone Screen Not Detected ng/mL (Not Detect) 05/28/24 19:15 Urine Methadone Screen Not Detected ng/mL (Not Detect) 05/28/24 19:15 Urine Fentanyl Screen Not Detected (Not Detect) 05/28/24 19:15 Ur Barbiturates Screen Not Detected (Not Detect) 05/28/24 19:15 Ur Phencyclidine Scrn Not Detected (Not Detect) 05/28/24 19:15 Ur Amphetamines Screen Not Detected (Not Detect) 05/28/24 19:15 U Benzodiazepines Scrn Not Detected (Not Detect) 05/28/24 19:15 Urine Cocaine Screen POSITIVE (Not Detect) H 05/28/24 19:15 U Marijuana (THC) Screen Not Detected (Not Detect) 05/28/24 19:15 Ethyl Alcohol < 10 mg/dL 05/28/24 19:01 Hep Bs Antigen Negative (Negative) 05/30/24 06:29 Hep Bs Antibody NONREACTIVE (Nonreactive) 05/30/24 06:29 Hep B Core Total Ab Nonreactive (Nonreactive) 05/30/24 06:29 Hepatitis C Ab (EIA) Nonreactive (Nonreactive) 05/30/24 06:29 HIV 1&2 Ab/P24 Ag 4thGn Nonreactive (Nonreactive) 05/30/24 06:29 Influenza Type A (PCR) NEGATIVE (Negative) 05/28/24 19:01 Influenza Type B (PCR) NEGATIVE (Negative) 05/28/24 19:01 RSV RNA Qual (PCR) NEGATIVE (Negative) 05/28/24 19:01 SARS-CoV-2 RNA (RT-PCR) NEGATIVE (Negative) 05/28/24 19:01 Discharge Plan Discharge Patient Disposition: Home, Self-Care Discharge Diagnosis: hypertension hypothyroidism wall motion abnormality on echocardiogram alcohol and cocaine abuse Referrals: [facility] Cardi[facility] Specialists [Provider Group] - [address] [facility] [Provider Group] - 1 Week Physician,Unknown J [Primary Care Provider] - 1 Week Discharge Medications: New levothyroxine 175 mcg Tablet 175 mcg PO DAILY@0600 Qty: 30 0RF amlodipine 10 mg Tablet 10 mg PO DAILY Qty: 30 0RF Protocol: Hold for SBP< HOLD for SBP < : 90 folic acid 1 mg Tablet 1 mg PO DAILY Qty: 30 0RF thiamine mononitrate (vit B1) 100 mg Tablet 100 mg PO DAILY Qty: 30 0RF atorvastatin 40 mg tablet 40 mg PO BEDTIME Qty: 30 0RF aspirin 81 mg tablet,chewable 81 mg PO DAILY Qty: 30 0RF Discharge Orders: Discharge Order (Routine); Ordered 05/31/24 Ordered By: Anupam Nicole Diet: Low salt diet Activity on Discharge: As tolerated Stand Alone Forms: Patient Portal Discharge page Print Language: Guyanese Other Ambulatory Orders: Thyroid Stimulating Hormone (Routine) Timeframe: 6 Weeks Facility: [facility] - Location: Laboratory Ordered By: Anupam Nicole Care Plan Goals: cardiac health Health Concerns: hypertension hypothyroidism wall motion abnormality on echocardiogram alcohol and cocaine abuse Plan of Treatment: low-sodium diet establish primary care TONNY start amlodipine 10 mg daily start levothyroxine 175 mcg daily; recheck TSH in 4-6 weeks start aspirin 81 mg daily PLUS atorvastatin 40 mg daily take folic acid 1 mg daily PLUS thiamine 100 mg daily avoid smoking, alcohol, cocaine, and all other drugs of abuse follow up with [facility] Cardiology for outpatient workup in 2-3 weeks Assessment: See Discharge Summary.
--- NOTE | 2024-05-31 12:48 | MHC.CM.PN ---
Pt has been medically cleared for DC, He will go home via private transport, plan is self care.
== END 2024-05-31 14:30 | disposition home or self-care (01) ==
LOC: HO.ED 23:53 → HO.EDOVER 05-29 00:53 → HO.IMC 05-29 07:17
PROVIDERS: Physician Assistant Medical; Social Worker; Admitting Provider Student in an Organized Health Care Education/Training Program; Emergency Provider Emergency Medicine; Visit Provider Family Medicine
DX: I11.9 Hypertensive heart disease without heart failure (principal); E03.9 Hypothyroidism, unspecified; G73.7 Myopathy in diseases classified elsewhere; R31.29 Other microscopic hematuria; F33.1 Major depressive disorder, recurrent, moderate; I10 Essential (primary) hypertension; R93.1 Abnormal findings on diagnostic imaging of heart and coronary circulation; F14.90 Cocaine use, unspecified, uncomplicated; F10.90 Alcohol use, unspecified, uncomplicated; F17.200 Nicotine dependence, unspecified, uncomplicated; R42 Dizziness and giddiness; I49.9 Cardiac arrhythmia, unspecified; E87.6 Hypokalemia; Y90.0 Blood alcohol level of less than 20 mg/100 ml; D53.9 Nutritional anemia, unspecified; D69.6 Thrombocytopenia, unspecified; R07.89 Other chest pain; R53.1 Weakness; Z03.818 Encounter for observation for suspected exposure to other biological agents ruled out
CPT/HCPCS: 0241U; 36415; 70450; 71046; 80048; 80053; 80061; 80307; 81001; 82550; 82607; 82746; 83036; 83735; 84439; 84443; 84484; 85025; 86704; 86706; 86803; 87086; 87340; 87389; 93005; 93306; 96365; 96366; 96372; 97162; 99222; 99285; J1650; J3411; Q9957; S9485

== ENCOUNTER → 2024-05-28 17:54 | Outpatient (BNV) | payer MEDICAID, SELFPAY | PROVIDERS: Admitting Provider Student in an Organized Health Care Education/Training Program; Emergency Provider Emergency Medicine; Visit Provider Internal Medicine Cardiovascular Disease | DX: R42 Dizziness and giddiness (principal); I49.9 Cardiac arrhythmia, unspecified; R94.31 Abnormal electrocardiogram [ECG] [EKG] | CPT/HCPCS: 93010 ==

== ENCOUNTER → 2024-05-28 17:54 | Outpatient (BNV) | payer MEDICAID, SELFPAY | PROVIDERS: Visit Provider General Practice | DX: R42 Dizziness and giddiness (principal) | CPT/HCPCS: 70450 ==

== ENCOUNTER 2024-05-29 00:49 | Outpatient (BNV) | payer MEDICAID, SELFPAY | END 2024-05-30 07:00 | PROVIDERS: Admitting Provider Student in an Organized Health Care Education/Training Program; Emergency Provider Emergency Medicine; Visit Provider Internal Medicine Cardiovascular Disease | DX: I42.2 Other hypertrophic cardiomyopathy (principal); I34.81 Nonrheumatic mitral (valve) annulus calcification | CPT/HCPCS: 93306 ==

== ENCOUNTER → 2024-05-29 00:49 | Outpatient (BNV) | payer MEDICAID, SELFPAY | PROVIDERS: Admitting Provider Student in an Organized Health Care Education/Training Program; Emergency Provider Emergency Medicine; Visit Provider Nurse Practitioner Psychiatric/Mental Health | DX: F10.90 Alcohol use, unspecified, uncomplicated (principal) | CPT/HCPCS: 99222 ==

== ENCOUNTER → 2024-05-29 00:49 | Outpatient (BNV) | payer MEDICAID, SELFPAY | PROVIDERS: Admitting Provider Student in an Organized Health Care Education/Training Program; Emergency Provider Emergency Medicine; Visit Provider Physician Assistant | DX: I10 Essential (primary) hypertension (principal) | CPT/HCPCS: 99223; 99232; 99239; 99499 ==

== ENCOUNTER → 2024-05-29 00:49 | Outpatient (BNV) | payer MEDICAID, SELFPAY | PROVIDERS: Admitting Provider Student in an Organized Health Care Education/Training Program; Emergency Provider Emergency Medicine; Visit Provider Internal Medicine Cardiovascular Disease | DX: R79.89 Other specified abnormal findings of blood chemistry (principal); I11.9 Hypertensive heart disease without heart failure | CPT/HCPCS: 99222 ==

== ENCOUNTER → 2024-05-29 00:49 | Outpatient (BNV) | payer OTHER, SELFPAY | PROVIDERS: Admitting Provider Student in an Organized Health Care Education/Training Program; Emergency Provider Emergency Medicine; Visit Provider Social Worker | DX: F33.1 Major depressive disorder, recurrent, moderate (principal); F10.90 Alcohol use, unspecified, uncomplicated | CPT/HCPCS: 99232 ==

== ENCOUNTER → 2024-05-29 | Outpatient (BNV) | payer MEDICAID, SELFPAY | PROVIDERS: Admitting Provider Student in an Organized Health Care Education/Training Program; Emergency Provider Emergency Medicine; Visit Provider General Practice | DX: R42 Dizziness and giddiness (principal) | CPT/HCPCS: 71046 ==

== ENCOUNTER 2024-06-14 16:34 | Emergency (ER) | payer OTHER, SELFPAY ==
--- NOTE | ~2024-06-14 | CT_ITS ---
CLINICAL HISTORY: R O BLEED, lightheaded x [address] head without contrast Comparison: CT/SR - CT HEAD/BRAIN WO IV CON - 05/28/24 18:21 EDT Findings: No intra-axial mass, midline shift, hydrocephalus, or acute hemorrhage. No significant atrophy-like change or white matter disease. Mucosal thickening of the bilateral maxillary sinus. The orbits are unremarkable. No skull fracture. IMPRESSION: 1. No acute intracranial findings. This document has been electronically signed by: Shasha Melissa MD on 06/14/2024 18:41:18
[2024-06-14 16:49] VITALS: BP 167/99; BP 170/110; PULSE 83; PULSE 84; RESP 14; TEMP 36.8; O2SAT 99; BMI 32.3
--- NOTE | 2024-06-14 16:57 | ECG_ITS ---
Test Reason : DIZZINESS Blood Pressure : */* mmHG Vent. Rate : 78 BPM Atrial Rate : 78 BPM P-R Int : 152 ms QRS Dur : 104 ms QT Int : 438 ms P-R-T Axes : 58 27 129 degrees QTcB Int : 499 ms Normal sinus rhythm Left ventricular hypertrophy with repolarization abnormality ( Sokolow-Parker ) Prolonged QT Abnormal ECG When compared with ECG of 28-May-2024 23:25, ST no longer depressed in Anterior leads Referred By: Comfort Patel Electronically Signed By: Tray Puckett
[2024-06-14 17:14] LABS: MANUAL DIFF FLAG NO
[2024-06-14 17:23] LABS: Basophils Percent Auto 0.7 % (0-2); Eosinophils Absolute Auto 0.3 X10*3/uL (0.0-0.4); Eosinophils Percent Auto 5.4 % (0-4); Hematocrit 28.7 % (42.0-52.0); Imm Gran Abs Auto 0.03 X10*3/uL (0.00-0.03); Imm Gran Pct Auto 0.5 % (0.0-0.4); Lymphocytes Absolute Auto 0.5 X10*3/uL (1.2-4.9); Lymphocytes Percent Auto 8.6 % (20-40); Mean Corpuscular HGB Conc 34.8 g/dl (31.0-36.0); Mean Corpuscular Hemoglobin 35.7 pg (27.0-33.0); Mean Corpuscular Volume 102.5 fL (80.0-98.0); Mean Platelet Volume 8.1 fL (9.4-12.4); Monocytes Absolute Auto 0.4 X10*3/uL (0.1-1.2); Monocytes Percent Auto 6.3 % (2-11); Neutrophils Absolute Auto 4.4 x10*3/uL (2.0-8.3); Neutrophils Percent Auto 78.5 % (45-73); Platelet Count 165 X10*3/uL (160-400); Red Cell Distribution Width 14.6 % (11.0-16.0); White Blood Count 5.6 X10*3/uL (4.8-10.8)
[2024-06-14 17:31] LABS: Anion Gap 17 (12-20); Blood Urea Nitrogen 19 mg/dL (9-16); Calcium 9.3 mg/dL (8.4-10.2); Carbon Dioxide 28 mmol/L (22-29); Chloride 101 mmol/L (96-108); Estimated Glomerular Filt Rate > 60; Glucose Random 85 mg/dL (60-115); Potassium 4.3 mmol/L (3.3-5.1); Sodium 142 mmol/L (135-145)
[2024-06-14 17:38] LABS: Troponin-I High Sensitivity 75.9 ng/L (<3.5-35.0)
[2024-06-14 17:40] LABS: Alanine Aminotransferase 35 U/L (0-40); Albumin Level 4.6 g/dL (3.5-5.0); Alkaline Phosphatase 60 U/L (39-117); Aspartate Amino Transferase 66 U/L (5-37); Bilirubin Direct 0.2 mg/dL (0.0-0.5); Bilirubin Total 0.4 mg/dL (0.0-1.0); Ethanol 90 mg/dL; Lipase 51 U/L (8-78); Total Protein 7.7 g/dL (6.5-8.0)
--- NOTE | 2024-06-14 17:55 | ED.DIZZY ---
HPI - Dizziness General Chief Complaint: Dizziness Stated Complaint: light headed 2days with drawl like symptoms Time Seen by Provider: 06/14/24 16:43 History of Present Illness HPI Narrative: PATIENT IS 58 YEARS OLD HAS A HISTory of alcohol abuse. History of cocaine use. Patient has stopped drinking abruptly about 30 hours ago now feels very weak very dizzy very lightheaded. patient had questionable trauma a few days ago. Question head injury. Complaining of generalized malaise. He just could not get up. Subsequently called the ambulance. He has a history of hypothyroid is currently on 175 mics of Synthroid. Also history of high cholesterol. Denies any chest pain denies any diaphoresis. From home. No leg swelling. No history travel. No bloody stool. Related Data Previous Rx's ?Medication ?Instructions ?Recorded amlodipine 10 mg tablet 10 mg PO DAILY #30 tabs 05/31/24 aspirin 81 mg chewable tablet 81 mg PO DAILY #30 tabs 05/31/24 atorvastatin 40 mg tablet 40 mg PO BEDTIME #30 tabs 05/31/24 folic acid 1 mg tablet 1 mg PO DAILY #30 tabs 05/31/24 levothyroxine 175 mcg tablet 175 mcg PO DAILY@0600 #30 tabs 05/31/24 thiamine mononitrate (vit B1) 100 100 mg PO DAILY #30 tabs 05/31/24 mg tablet Allergies Allergy/AdvReac Type Severity Reaction Status Date / Time No Known Allergies Allergy Verified 06/14/24 16:53 Review of Systems Review of Systems: Positive dizziness weakness Yes all other systems are reviewed and are negative PMFSH Past Medical History Attestation statement: The following information was validated with the patient. Medical History MDD (major depressive disorder), recurrent episode, moderate HTN (hypertension) Microscopic hematuria Thrombocytopenia Tobacco use disorder Substance use disorder Alcohol use disorder Elevated LFTs Anemia Non-ST elevation WI (NSTEMI) Dizziness Social History Social History Household Members: Other Household Members Other:: Father Housing: House Alcohol intake: current Alcohol intake frequency: 3 or more drinks per day Alcohol type: hard liquor Patient Tobacco Use Status: Current everyday Tobacco user Tobacco use type: Cigarette Smoked in Last 30 Days: No e-Cigarette/Vaping Use: Never Used Use of substances other than those prescribed or required for medical reasons: Yes Substance Use Type: Crack/Cocaine Advance Directives: Yes Advance Directives Information Provided: Yes Advance Directives on File: Yes Advance Directives Date on File: 06/01/24 Do you have a plan to hurt others: No Plan service: No Physical Exam Vital Signs: Vital Signs: Last Vital Signs Temp 98.6 F 06/14/24 19:15 Pulse 94 06/14/24 19:15 Resp 22 H 06/14/24 19:15 BP 133/86 06/14/24 19:15 Pulse Ox 95 06/14/24 19:15 O2 Del Method Room Air 06/14/24 19:15 BMI result Body Mass Index 32.3 Appearance: Alert. Oriented X3. No acute distress. Eyes: Pupils equal, round and reactive to light. ENT: Pharynx normal. Neck: Normal inspection. Neck supple. No lymph nodes noted. No crepitus CVS: Normal heart rate and rhythm. Pulses normal. Normal S1 and S2 Respiratory: No respiratory distress. Breath sounds normal. No Wheezing. No rales Abdomen: Soft and nontender. No rigidity. No distention. good BS x4 Skin: Skin warm and dry. Normal skin color. Normal skin turgor. Extremities: No lower extremity edema. Neurovascular intact to all extremities. No Lacerations. No Rash Neuro: Oriented X 3. No motor deficit. No sensory deficit. Moving all extermities. No slurred speech Medications Administered Discontinued Medications Generic Name Dose Route Start Last Admin Trade Name Freq PRN Reason Stop Dose Admin Sodium Chloride 1,000 mls @ 999 mls/hr 06/14/24 18:00 06/14/24 18:20 Ns IV 06/14/24 19:00 999 mls/hr .Q1H1M MICHAEL Administration Lorazepam 1 mg 06/14/24 17:56 06/14/24 18:19 Lorazepam 2 Mg/Ml Vial IVPUSH 06/14/24 17:57 1 mg ONCE ONE Administration Medical Decision Making Medical Decision Making [facility] Narrative: Patient 58 years old presents today with lightheadedness dizziness patient claims that he stopped drinking about 30 hours ago. Admits to drinking on a daily basis. Patient feels somewhat weak. Had an elevated troponin but this is chronic. alcohol was 90. CT scan of the head was done as patient has a significant history of drinking. The CT head was grossly negative for any acute evidence of bleeding. Patient's tox screen was positive for cocaine. Explained to patient the need to stop using recreational drugs to stop drinking alcohol and seek detox. Asked patient if he wanted detox and he denies he said he does not want help at this time. Patient's CIWA score is a 3. Ambulated in the ED. Wants to go home. Will discharge. In stable condition. Differential Diagnosis Differential Diagnoses: The differential diagnosis associated with the presentation includes Alcohol withdrawal, intracranial bleed, electrolyte disturbance Admission/Observation Consideration of admission/observation: Escalation of care including admission/observation considered Lab Data MDM Lab Attestation statement: I reviewed the patient's lab results. 06/14/24 17:07 06/14/24 17:07 Labs: Lab Results 06/14/24 06/14/24 Range/Units 17:07 17:18 WBC 5.6 (4.8-10.8) X10*3/uL RBC 2.80 L (4.60-5.80) X10*6/uL Hgb 10.0 L (14.0-18.0) g/dl Hct 28.7 L (42.0-52.0) % MCV 102.5 H (80.0-98.0) fL MCH 35.7 H (27.0-33.0) pg MCHC 34.8 (31.0-36.0) g/dl RDW 14.6 (11.0-16.0) % Plt Count 165 D (160-400) X10*3/uL MPV 8.1 L (9.4-12.4) fL Immature Gran % (Auto) 0.5 H (0.0-0.4) % Neut % (Auto) 78.5 H (45-73) % Lymph % (Auto) 8.6 L (20-40) % [place] % (Auto) 6.3 (2-11) % Eos % (Auto) 5.4 H (0-4) % Baso % (Auto) 0.7 (0-2) % Lymph # (Auto) 0.5 L (1.2-4.9) X10*3/uL [place] # (Auto) 0.4 (0.1-1.2) X10*3/uL Eos # (Auto) 0.3 (0.0-0.4) X10*3/uL Baso # (Auto) 0.0 (0.0-0.2) X10*3/uL Abs Immat Gran (auto) 0.03 (0.00-0.03) X10*3/uL Absolute Neuts (auto) 4.4 (2.0-8.3) x10*3/uL Absolute Nucleated RBC 0.000 (0.0-0.012) X10*3/uL Nucleated RBC % (auto) 0.0 (0.0-0.2) /100WBC Sodium 142 (135-145) mmol/L Potassium 4.3 (3.3-5.1) mmol/L Chloride 101 (96-108) mmol/L Carbon Dioxide 28 (22-29) mmol/L Anion Gap 17 (12-20) BUN 19 H (9-16) mg/dL Creatinine 0.78 (0.5-1.4) mg/dL Estim Creat Clear Calc 146.0 Estimated GFR > 60 Random Glucose 85 (60-115) mg/dL Calcium 9.3 (8.4-10.2) mg/dL Total Bilirubin 0.4 (0.0-1.0) mg/dL Direct Bilirubin 0.2 (0.0-0.5) mg/dL AST 66 H (5-37) U/L ALT 35 (0-40) U/L Alkaline Phosphatase 60 (39-117) U/L Total Creatine Kinase 437 H (38-174) U/L Troponin I High Sens 75.9 H (<3.5-35.0) ng/L Total Protein 7.7 (6.5-8.0) g/dL Albumin 4.6 (3.5-5.0) g/dL Lipase 51 (8-78) U/L TSH 39.34 H (0.32-4.0) uIU/mL Urine Color Yellow Urine Appearance Clear Urine pH 8.5 (5.0-9.0) Ur Specific [place] 1.010 (1.005-1.025) Urine Protein Trace (Neg-Trace) mg/dL Urine Glucose (UA) Negative (Negative) mg/dL Urine Ketones Negative (Negative) mg/dL Urine Blood Small (1+) H (Negative) Urine Nitrite Negative (Negative) Ur Leukocyte Esterase Negative (Negative) Urine RBC 6-10 H (0-2) /HPF Urine WBC 0-5 (0-5) /HPF Ur Squamous Epith Cells 0-2 (0-2) /HPF Urine Bacteria None Seen (None Seen) Hyaline Casts 0-2 (0-2) /LPF Urine Opiates Screen Not Detected (Not Detect) Ur Buprenorphine Scrn Not Detected (Not Detect) ng/mL Ur Oxycodone Screen Not Detected (Not Detect) ng/mL Urine Methadone Screen Not Detected (Not Detect) ng/mL Urine Fentanyl Screen Not Detected (Not Detect) Ur Barbiturates Screen Not Detected (Not Detect) Ur Phencyclidine Scrn Not Detected (Not Detect) Ur Amphetamines Screen Not Detected (Not Detect) U Benzodiazepines Scrn Not Detected (Not Detect) Urine Cocaine Screen POSITIVE H (Not Detect) U Marijuana (THC) Screen Not Detected (Not Detect) Ethyl Alcohol 90 mg/dL Independent Interpretation I performed an independent interpretation of an: EKG ( my interpretation of patient's EKG showed a sinus rhythm heart rate is 90 significant LVH with report. there is significant T-wave inversions noted.) and CT Scan ( CT head negative for any acute evidence of bleeding.) Radiology Impression Discussion of test interpretation with radiology: I have reviewed the radiologist's reading. External Record Review External record reviewed: Inpatient record Chronic Conditions History of polysubstance abuse history of alcohol abuse Social Determinants Patient?s care significantly limited by Social Determinants of Health including: Alcoholism and drug addiction in family and Problems related to primary support group Discharge Plan Discharge Clinical Impression: Hypothyroidism, Polysubstance abuse, Alcohol intoxication Patient Disposition: Home, Self-Care Instructions: Alcohol Intoxication (ED), Hypothyroidism (ED), Polysubstance Abuse (ED) Prescriptions: No Action levothyroxine 175 mcg Tablet 175 mcg PO DAILY@0600 Qty: 30 0RF amlodipine 10 mg Tablet 10 mg PO DAILY Qty: 30 0RF Protocol: Hold for SBP< HOLD for SBP < : 90 folic acid 1 mg Tablet 1 mg PO DAILY Qty: 30 0RF thiamine mononitrate (vit B1) 100 mg Tablet 100 mg PO DAILY Qty: 30 0RF atorvastatin 40 mg tablet 40 mg PO BEDTIME Qty: 30 0RF aspirin 81 mg tablet,chewable 81 mg PO DAILY Qty: 30 0RF Referrals: Physician,Unknown J [Primary Care Provider] - 06/18/24 ( please stop using cocaine. Please go to detox as soon as possible. Please take your thyroid medicine) Print Language: Malay
[2024-06-14 18:00] VITALS: BP 145/95; PULSE 86; RESP 20; TEMP 37; O2SAT 97
[2024-06-14 18:00] LABS: Thyroid Stimulating Hormone 39.34 uIU/mL (0.32-4.0)
[2024-06-14] MEDS: LORazepam 2 MG/ML VIAL 1 MG IVPUSH (18:19)
[2024-06-14] MEDS: 0.9 % Sodium Chloride 1,000 ML 999 ML IV (18:20)
--- NOTE | 2024-06-14 18:25 | PC.NURSE ---
patient a&ox3, iv previously inserted by ems, labs drawn, urine obtained, ekg performed, quality assurance monitor applied, pt ciwa scale performed -6, ivf hung per order, pt medicated per order, call trujillo within reach, plan of care ongoing
[2024-06-14 18:29] LABS: Appearance Urine Clear; Color Urine Yellow; Glucose Urine UA Negative (Negative); Leukocyte Esterase Urine Negative (Negative); Nitrite Urine Negative (Negative); PH 8.5 (5.0-9.0); UMIC TRIGGER UACC YES; Urine Blood Small (1+) (Negative); Urine Ketones Negative (Negative); Urine Protein Trace mg/dL (Neg-Trace)
[2024-06-14 18:34] LABS: Bacteria Urine None Seen (None Seen); Hyaline Casts Urine 0-2 /LPF (0-2); Squamous Epithelial Cell Urine 0-2 /HPF (0-2); WBC Urine 0-5 /HPF (0-5)
[2024-06-14 18:41] LABS: Amphetamine Screen Urine Not Detected (Not Detect); Barbiturates, Urine Not Detected (Not Detect); Benzodiazepines Screen Urine Not Detected (Not Detect); Buprenorphine Scr Not Detected (Not Detect); Cannabinoid Screen Urine Not Detected (Not Detect); Cocaine Screen Urine POSITIVE (Not Detect); Fentanyl, urine Not Detected (Not Detect); Methadone Screen, Urine Not Detected (Not Detect); Opiate Screen Urine Not Detected (Not Detect); Oxycodone Screen Urine Not Detected (Not Detect); Phencyclidine Screen Urine Not Detected (Not Detect)
--- NOTE | 2024-06-14 18:46 | PC.NURSE ---
Report received from VERN Gonzalez. Taken over care at this time.
[2024-06-14 19:15] VITALS: BP 133/86; PULSE 94; RESP 22; TEMP 37; O2SAT 95
[2024-06-14 20:18] VITALS: PULSE 92; RESP 15; TEMP 36.7; O2SAT 95
[2024-06-14 20:19] VITALS: BP 164/88
[2024-06-14 20:32] VITALS: BP 164/88; PULSE 90; RESP 22; TEMP 36.7; O2SAT 95
== END 2024-06-14 20:33 | disposition home or self-care (01) ==
PROVIDERS: Emergency Provider Emergency Medicine Emergency Medical Services
DX: E03.9 Hypothyroidism, unspecified (principal); R42 Dizziness and giddiness; F10.120 Alcohol abuse with intoxication, uncomplicated; Y90.4 Blood alcohol level of 80-99 mg/100 ml; F19.10 Other psychoactive substance abuse, uncomplicated; I10 Essential (primary) hypertension; D64.9 Anemia, unspecified; F17.210 Nicotine dependence, cigarettes, uncomplicated; Z79.899 Other long term (current) drug therapy; Z79.02 Long term (current) use of antithrombotics/antiplatelets
CPT/HCPCS: 36415; 70450; 80048; 80076; 80307; 81001; 82550; 83690; 84443; 84484; 85025; 93005; 96361; 96374; 99285; J2060

== ENCOUNTER → 2024-06-14 16:57 | Outpatient (BNV) | payer OTHER, SELFPAY | PROVIDERS: Emergency Provider Emergency Medicine Emergency Medical Services; Visit Provider Internal Medicine Cardiovascular Disease | DX: I51.7 Cardiomegaly (principal) | CPT/HCPCS: 93010 ==

== ENCOUNTER → 2024-06-14 17:54 | Outpatient (BNV) | payer OTHER, SELFPAY | PROVIDERS: Emergency Provider Emergency Medicine Emergency Medical Services; Visit Provider Nuclear Medicine | DX: R42 Dizziness and giddiness (principal) | CPT/HCPCS: 70450 ==

== ENCOUNTER 2024-06-17 00:24 | Emergency (ER) | payer OTHER, SELFPAY ==
[2024-06-17 00:47] VITALS: BP 157/91; BP 184/96; PULSE 78; PULSE 87; RESP 18; TEMP 36.5; O2SAT 96; O2SAT 98
[2024-06-17 01:23] LABS: Appearance Urine Clear; Color Urine Yellow; Glucose Urine UA Negative (Negative); Leukocyte Esterase Urine Negative (Negative); Nitrite Urine Negative (Negative); PH 7.5 (5.0-9.0); Specific Gravity - Urine 1.015 (1.005-1.025); UMIC TRIGGER UA YES; Urine Blood Small (1+) (Negative); Urine Ketones Negative (Negative); Urine Protein 30 (1+) mg/dL (Neg-Trace)
[2024-06-17 01:25] LABS: Bacteria Urine None Seen (None Seen); Hyaline Casts Urine 0-2 /LPF (0-2); Squamous Epithelial Cell Urine 0-2 /HPF (0-2); WBC Urine 0-5 /HPF (0-5)
[2024-06-17 01:52] LABS: Basophils Percent Auto 0.3 % (0-2); Eosinophils Absolute Auto 0.2 X10*3/uL (0.0-0.4); Eosinophils Percent Auto 3.4 % (0-4); Hematocrit 26.4 % (42.0-52.0); Hemoglobin 9.2 g/dl (14.0-18.0); Imm Gran Abs Auto 0.03 X10*3/uL (0.00-0.03); Imm Gran Pct Auto 0.5 % (0.0-0.4); Lymphocytes Absolute Auto 0.6 X10*3/uL (1.2-4.9); Lymphocytes Percent Auto 8.7 % (20-40); MANUAL DIFF FLAG NO; Mean Corpuscular HGB Conc 34.8 g/dl (31.0-36.0); Mean Corpuscular Hemoglobin 35.8 pg (27.0-33.0); Mean Corpuscular Volume 102.7 fL (80.0-98.0); Mean Platelet Volume 8.4 fL (9.4-12.4); Monocytes Absolute Auto 0.4 X10*3/uL (0.1-1.2); Monocytes Percent Auto 5.5 % (2-11); Neutrophils Absolute Auto 5.2 x10*3/uL (2.0-8.3); Neutrophils Percent Auto 81.6 % (45-73); Platelet Count 113 X10*3/uL (160-400); Red Blood Count 2.57 X10*6/uL (4.60-5.80); Red Cell Distribution Width 14.8 % (11.0-16.0); White Blood Count 6.4 X10*3/uL (4.8-10.8)
[2024-06-17 02:11] LABS: Alanine Aminotransferase 39 U/L (0-40); Albumin Level 4.3 g/dL (3.5-5.0); Anion Gap 17 (12-20); Aspartate Amino Transferase 66 U/L (5-37); Bilirubin Direct 0.2 mg/dL (0.0-0.5); Bilirubin Total 0.4 mg/dL (0.0-1.0); Blood Urea Nitrogen 20 mg/dL (9-16); Calcium 9.5 mg/dL (8.4-10.2); Carbon Dioxide 24 mmol/L (22-29); Chloride 104 mmol/L (96-108); Creatinine Clr Calc Pharmacy 118.2; Estimated Glomerular Filt Rate > 60; Ethanol 60 mg/dL; Glucose Random 105 mg/dL (60-115); Lipase 52 U/L (8-78); Potassium 3.8 mmol/L (3.3-5.1); Sodium 141 mmol/L (135-145); Total Protein 7.1 g/dL (6.5-8.0)
[2024-06-17] MEDS: Thiamine HCL 500 MG in 0.9 % Sodium Chloride 100 ML 210 MG IV (02:12)
[2024-06-17] MEDS: 0.9 % Sodium Chloride 1,000 ML 999 ML IV (02:15)
[2024-06-17 02:21] LABS: Amphetamine Screen Urine Not Detected (Not Detect); Barbiturates, Urine Not Detected (Not Detect); Benzodiazepines Screen Urine Not Detected (Not Detect); Buprenorphine Scr Not Detected (Not Detect); Cannabinoid Screen Urine Not Detected (Not Detect); Cocaine Screen Urine POSITIVE (Not Detect); Fentanyl, urine Not Detected (Not Detect); Methadone Screen, Urine Not Detected (Not Detect); Opiate Screen Urine Not Detected (Not Detect); Oxycodone Screen Urine Not Detected (Not Detect); Phencyclidine Screen Urine Not Detected (Not Detect)
[2024-06-17 02:21] LABS: Alkaline Phosphatase 67 U/L (39-117)
--- NOTE | 2024-06-17 02:29 | ED.GENADULT ---
HPI - General Adult General Chief complaint: ETOH/Substance Use Stated complaint: WEAKNESS/ETOH Time Seen by Provider: 06/17/24 01:48 Source: patient, RN notes reviewed and old records reviewed Mode of arrival: EMS Limitations: no limitations History of Present Illness ED Provider: Jo HAN narrative: 58-year-old male with past medical history significant for hypertension, hypothyroidism presents for evaluation of alcohol dependence. Patient reports that he was interested in detox from alcohol. He reports he drinks out 1 L of vodka daily. His last drink was a little over 12 hours prior to arrival. He also admits to smoking crack cocaine 2 days ago He reports feeling weak generally. He was here 3 days ago for alcohol abuse but declined detox at that time. He was interested in being considered for detox at this time. He reports that he recently got suture with a primary doctor and was started on levothyroxine, aspirin, amlodipine, atorvastatin, folic acid He denies any fevers chills, chest pain Related Data Previous Rx's ?Medication ?Instructions ?Recorded amlodipine 10 mg tablet 10 mg PO DAILY #30 tabs 05/31/24 aspirin 81 mg chewable tablet 81 mg PO DAILY #30 tabs 05/31/24 atorvastatin 40 mg tablet 40 mg PO BEDTIME #30 tabs 05/31/24 folic acid 1 mg tablet 1 mg PO DAILY #30 tabs 05/31/24 levothyroxine 175 mcg tablet 175 mcg PO DAILY@0600 #30 tabs 05/31/24 thiamine mononitrate (vit B1) 100 100 mg PO DAILY #30 tabs 05/31/24 mg tablet Allergies Allergy/AdvReac Type Severity Reaction Status Date / Time No Known Allergies Allergy Verified 06/17/24 00:50 Review of Systems Constitutional: Constitutional: Denies body ache(s), Denies chills, Denies fever(s), Denies headache(s) and Reports weakness Eyes: Eyes: Denies blurry vision ENT: Denies headache(s) Cardiovascular: Cardiovascular: Denies chest pain and Denies dyspnea Respiratory: Respiratory: Denies cough and Denies dyspnea Gastrointestinal: Gastrointestinal: Denies abdominal pain, Denies nausea and Denies vomiting Musculoskeletal: Musculoskeletal: Denies back pain Integumentary/Breasts: Skin/Breast: Denies rash Neurologic: Denies headache(s) and Reports weakness PMF Past Medical History Medical History MDD (major depressive disorder), recurrent episode, moderate HTN (hypertension) Microscopic hematuria Thrombocytopenia Tobacco use disorder Substance use disorder Alcohol use disorder Elevated LFTs Anemia Non-ST elevation [place] (NSTEMI) Dizziness Social History Social History Household Members: Other Household Members Other:: Father Housing: House Alcohol intake: current Alcohol intake frequency: 3 or more drinks per day Alcohol type: hard liquor Patient Tobacco Use Status: Current everyday Tobacco user Tobacco use type: Cigarette e-Cigarette/Vaping Use: Never Used Use of substances other than those prescribed or required for medical reasons: Yes Substance Use Type: Crack/Cocaine Advance Directives: Yes Advance Directives on File: Yes Advance Directives Date on File: 06/01/24 Do you have a plan to hurt others: No Plan service: No Physical Exam ED Vital Signs: Vital Signs - 24 hr 06/17/24 00:47 06/17/24 02:43 06/17/24 06:20 Temperature 97.7 F 97 F 98.8 F Pulse Rate 87 88 76 Respiratory Rate 18 18 18 Blood Pressure 157/91 H 158/87 H 152/76 H Pulse Oximetry 98 99 97 Oxygen Delivery Method Room Air Room Air Room Air 06/17/24 10:30 06/17/24 12:37 Temperature 99.5 F 98.9 F Pulse Rate 88 88 Respiratory Rate 14 16 Blood Pressure 131/78 150/87 H Pulse Oximetry 93 96 Oxygen Delivery Method Room Air Room Air BMI result Body Mass Index 30.0 Const General: healthy appearing, comfortable, no acute distress, alert and awake Nutritional Appearance: well nourished Orientation/consciousness: patient oriented x3 HENMT Head: Yes normocephalic and Yes atraumatic Eyes Eyelids: Yes eyelids normal Conjunctivae: conjunctivae normal Sclerae: sclerae normal Corneas: corneas normal Pupils: Equal, round and reactive pupils present EOM: EOMs intact bilaterally Neck Neck: Yes full ROM Resp Effort & Inspection: normal respiratory effort, able to speak in complete sentences and not labored GI Inspection: No distended Palpation (GI): Soft to palpation, not firm, nontender, no guarding and not rigid Skin General skin exam: elasticity normal Neuro General: patient oriented x3 Cranial nerves: Yes Equal, round and reactive pupils present and Yes Bilaterally intact EOM present Cognition (Neuro): normal cognition Extrem Other: Moving all extremities well without any obvious deformities Course Course Course Narrative: Time: 08:21 Date: 06/17/24 Provider: MATIAS Zuniga Patient in physician observation for psychiatric evaluation.? No acute events reported overnight. No current complaints. VS stable.?I have reviewed all labs - macrocytic anemia related to chronic etoh abuse. No leukocytosis or left shift. Chemistry without acute electrolyte abnormality requiring intervention. No JOHN. Normal liver function. Lipase WNL. Urine without infection. Urine toxicology positive for cocaine, otherwise negative. Ethanol 60 at 0148 today. will order CIWA to assess for withdrawal - prn ativan orderd by over night provider. Patient is pending CARE team/ recovery evaluation. Will continue to monitor. Reevaluation(s) Reevaluation #1: Dr. Duong: 15:44: The patient was signed out to me pending evaluation by the recovery team. The patient has been seen by the recovery team and arrangements have been made for the patient to be admitted to the [facility] in [place] for detox services. A taxi he will be arranged for transportation there. We will end physician observation. Medications Administered Generic Name Dose Route Start Last Admin Trade Name Freq PRN Reason Stop Dose Admin Amlodipine Besylate 10 mg 06/17/24 10:50 06/17/24 12:31 Amlodipine Besylate 10 Mg Tablet PO 10 mg DAILY MICHAEL Administration Protocol Aspirin 81 mg 06/17/24 10:50 06/17/24 12:30 Aspirin 81 Mg Tab.Chew PO 81 mg DAILY MICHAEL Administration Folic Acid 1 mg 06/17/24 10:50 06/17/24 12:30 Folic Acid 1 Mg Tablet PO 1 mg DAILY MICHAEL Administration Lorazepam 2 mg 06/17/24 01:53 06/17/24 02:38 Lorazepam 1 Mg Tablet PO 2 mg Q4H PRN Administration Alcohol Withdrawal Thiamine HCl 100 mg 06/17/24 10:55 06/17/24 12:31 Thiamine Hcl 100 Mg Tablet PO 100 mg DAILY MICHAEL Administration Discontinued Medications Generic Name Dose Route Start Last Admin Trade Name Freq PRN Reason Stop Dose Admin Sodium Chloride 1,000 mls @ 999 mls/hr 06/17/24 02:00 06/17/24 06:01 Ns IV 06/17/24 03:00 Infused .Q1H1M MICHAEL Infusion Thiamine HCl 500 mg/ Sodium 105 mls @ 210 mls/hr 06/17/24 01:53 06/17/24 03:18 Chloride IV 06/17/24 02:22 Infused ONCE ONE Infusion Folic Acid 1 mg/ Sodium 50.2 mls @ 100.4 mls/hr 06/17/24 01:53 06/17/24 04:39 Chloride IV 06/17/24 02:22 Not Given ONCE ONE Medical Decision Making Medical Decision Making [facility] Narrative: 58-year-old male presents for evaluation of alcohol dependence. He was seeking detox. He reports generalized weakness but has no other specific symptoms. Plan for labs and addiction medicine consult Differential Diagnosis Differential Diagnoses: The differential diagnosis associated with the presentation includes Alcohol dependence Acute alcohol abuse Alcohol withdrawal Weakness Thiamine deficiency Lab Data [facility] Lab Attestation statement: I reviewed the patient's lab results. No leukocytosis. The patient has a chronic macrocytic anemia likely related to alcoholic liver disease. Chemistries are within normal limits, no significant electrolyte abnormalities 06/17/24 01:48 06/17/24 01:48 Labs: Lab Results 06/17/24 06/17/24 Range/Units 01:16 01:48 WBC 6.4 (4.8-10.8) X10*3/uL RBC 2.57 L (4.60-5.80) X10*6/uL Hgb 9.2 L (14.0-18.0) g/dl Hct 26.4 L (42.0-52.0) % MCV 102.7 H (80.0-98.0) fL MCH 35.8 H (27.0-33.0) pg MCHC 34.8 (31.0-36.0) g/dl RDW 14.8 (11.0-16.0) % Plt Count 113 L D (160-400) X10*3/uL MPV 8.4 L (9.4-12.4) fL Immature Gran % (Auto) 0.5 H (0.0-0.4) % Neut % (Auto) 81.6 H (45-73) % Lymph % (Auto) 8.7 L (20-40) % Granite % (Auto) 5.5 (2-11) % Eos % (Auto) 3.4 (0-4) % Baso % (Auto) 0.3 (0-2) % Lymph # (Auto) 0.6 L (1.2-4.9) X10*3/uL Granite # (Auto) 0.4 (0.1-1.2) X10*3/uL Eos # (Auto) 0.2 (0.0-0.4) X10*3/uL Baso # (Auto) 0.0 (0.0-0.2) X10*3/uL Abs Immat Gran (auto) 0.03 (0.00-0.03) X10*3/uL Absolute Neuts (auto) 5.2 (2.0-8.3) x10*3/uL Absolute Nucleated RBC 0.000 (0.0-0.012) X10*3/uL Nucleated RBC % (auto) 0.0 (0.0-0.2) /100WBC Sodium 141 (135-145) mmol/L Potassium 3.8 (3.3-5.1) mmol/L Chloride 104 (96-108) mmol/L Carbon Dioxide 24 (22-29) mmol/L Anion Gap 17 (12-20) BUN 20 H (9-16) mg/dL Creatinine 0.93 (0.5-1.4) mg/dL Estim Creat Clear Calc 118.2 Estimated GFR > 60 Random Glucose 105 (60-115) mg/dL Calcium 9.5 (8.4-10.2) mg/dL Total Bilirubin 0.4 (0.0-1.0) mg/dL Direct Bilirubin 0.2 (0.0-0.5) mg/dL AST 66 H (5-37) U/L ALT 39 (0-40) U/L Alkaline Phosphatase 67 (39-117) U/L Total Protein 7.1 (6.5-8.0) g/dL Albumin 4.3 (3.5-5.0) g/dL Lipase 52 (8-78) U/L Urine Color Yellow Urine Appearance Clear Urine pH 7.5 (5.0-9.0) Ur Specific [place] 1.015 (1.005-1.025) Urine Protein 30 (1+) H (Neg-Trace) mg/dL Urine Glucose (UA) Negative (Negative) mg/dL Urine Ketones Negative (Negative) mg/dL Urine Blood Small (1+) H (Negative) Urine Nitrite Negative (Negative) Ur Leukocyte Esterase Negative (Negative) Urine RBC 11-20 H (0-2) /HPF Urine WBC 0-5 (0-5) /HPF Ur Squamous Epith Cells 0-2 (0-2) /HPF Urine Bacteria None Seen (None Seen) Hyaline Casts 0-2 (0-2) /LPF Urine Opiates Screen Not Detected (Not Detect) Ur Buprenorphine Scrn Not Detected (Not Detect) ng/mL Ur Oxycodone Screen Not Detected (Not Detect) ng/mL Urine Methadone Screen Not Detected (Not Detect) ng/mL Urine Fentanyl Screen Not Detected (Not Detect) Ur Barbiturates Screen Not Detected (Not Detect) Ur Phencyclidine Scrn Not Detected (Not Detect) Ur Amphetamines Screen Not Detected (Not Detect) U Benzodiazepines Scrn Not Detected (Not Detect) Urine Cocaine Screen POSITIVE H (Not Detect) U Marijuana (THC) Screen Not Detected (Not Detect) Ethyl Alcohol 60 mg/dL Discharge Plan Discharge Clinical Impression: Alcohol dependence Patient Disposition: Xfer Other Additional Instructions: You has been accepted for admission at the [facility] [place]. Please go directly there for additional care. Prescriptions: No Action levothyroxine 175 mcg Tablet 175 mcg PO DAILY@0600 Qty: 30 0RF amlodipine 10 mg Tablet 10 mg PO DAILY Qty: 30 0RF Protocol: Hold for SBP< HOLD for SBP < : 90 folic acid 1 mg Tablet 1 mg PO DAILY Qty: 30 0RF thiamine mononitrate (vit B1) 100 mg Tablet 100 mg PO DAILY Qty: 30 0RF atorvastatin 40 mg tablet 40 mg PO BEDTIME Qty: 30 0RF aspirin 81 mg tablet,chewable 81 mg PO DAILY Qty: 30 0RF Referrals: [facility] [Outside] Print Language: Unable To Collect
[2024-06-17] MEDS: LORazepam 1 MG TABLET 2 MG PO (02:38)
[2024-06-17 02:43] VITALS: BP 158/87; PULSE 88; RESP 18; TEMP 36.1; O2SAT 99
[2024-06-17 06:20] VITALS: BP 152/76; PULSE 76; RESP 18; TEMP 37.1; O2SAT 97
--- NOTE | 2024-06-17 08:36 | PC.NURSE ---
pt speaking w/ addiction medicine RN at this time.
--- NOTE | 2024-06-17 10:15 | MHC.RECOVRN ---
ATS referrals have been sent to the following facilities for review: [facility] 2. [facility] 3. [facility] 4. [facility] 5. [facility] Will follow up shortly via phone call for updates. See recovery/bh assessment for more info.
[2024-06-17 10:30] VITALS: BP 131/78; PULSE 88; RESP 14; TEMP 37.5; O2SAT 93
--- NOTE | 2024-06-17 12:11 | PHA.MEDREC ---
Pharmacy Consult ? Medication Reconciliation Pharmacy has completed the medication reconciliation. PHARMACY HAS REVIEWED MED REC DONE BY NURSING USING DISCHARGE SUMMARIES FROM 05/31 AND 06/14 FROM THIS FACILITY AND CLAIMS HISTORY FROM PSYCHIATRIC.
[2024-06-17] MEDS: Aspirin 81 MG TAB.CHEW PO (12:30)
[2024-06-17] MEDS: Folic Acid 1 MG TABLET PO (12:30)
[2024-06-17] MEDS: amLODIPine Besylate 10 MG TABLET PO (12:31)
[2024-06-17] MEDS: Thiamine HCL 100 MG TABLET PO (12:31)
[2024-06-17 12:37] VITALS: BP 150/87; PULSE 88; RESP 16; TEMP 37.2; O2SAT 96
--- NOTE | 2024-06-17 15:33 | MHC.RECOVRN ---
Pt got accepted to [facility]. He is expected there mario. CARE team to transport pt via [employer]. ED doctor and RN all aware.
[2024-06-17 16:01] VITALS: BP 150/87; PULSE 88; RESP 16; TEMP 37.2; O2SAT 96
== END 2024-06-17 16:02 | disposition other institution (70) ==
PROVIDERS: Emergency Provider Internal Medicine
DX: F10.20 Alcohol dependence, uncomplicated (principal); I10 Essential (primary) hypertension; E03.9 Hypothyroidism, unspecified
CPT/HCPCS: 36415; 80048; 80076; 80307; 81001; 83690; 85025; 96361; 96365; 99285; J3411; S9485

== ENCOUNTER 2024-07-02 12:30 | Outpatient (AMB) | payer OTHER, SELFPAY ==
--- NOTE | 2024-07-02 13:20 | AM.OFFWIN_ITS ---
Intake Vital Signs 07/02/24 13:27 Weight 254 lb BP 138/80 Blood Pressure Location Rt brachial Position Sitting Pulse 87 Pulse Source Pulse Oximeter Pulse Oximetry (%) 97 Oxygen Delivery Method Room Air Intake Visit Reasons: EP med refill Intake Note: Patient here for thyroid refill. Patient Tobacco Use Status: Current everyday Tobacco user Allergies No Known Allergies Allergy (Verified 07/02/24 13:27) Do you need a note to return to daycare/school/sports/work: No HPI HPI Comments History of Present Illness Details History of Present Illness - The patient is a 58-year-old male pres enting with a need for medication refill and follow-up for hypothyroidism. - He was diagnosed with hypothyroidism 4 -5 weeks ago during a hospital stay after visiting the emergency department, which led to his admission for 5-6 days. - Prior to this event, the patient had n o contact with a healthcare provider for over 20 years and was unaware of his thyroid condition. - Initial symptoms included hair loss, w eight loss, and vertigo which have since improved with treatment. - The patient reports marked improvement in symptoms following prescribed medication. - He is facing issues with medication re fills since he did not show up for his HDF appt. - The patient is scheduled for a follow- up lab test on July 16 to monitor and assess thyroid medication response. - Additionally, he requires refills for medications for hyperlipidemia and hypertension and is managing modest alcohol consumption, supplemented by folic acid. Physical Exam General: Cooperative, healthy appearing, comfortable, no acute distress and well developed Orientation: Patient oriented x3 Limitations: No limitations Head: Normal to inspection Ears: Hearing grossly normal bilaterally Nose: Normal External nose present Face and sinus: Normal facial exam Eyes: Appearance normal, both eyes and all related structures Neck: Normal visual inspection and Yes full ROM Respiratory: Normal respiratory effort and able to speak in complete sentences. Skin: No rashes or lesions noted Neuro: Patient oriented x3 Extremities: Normal to inspection [facility] Medical History (Updated 07/02/24 @ 14:04 by Pamella Kraft PA-C) HTN (hypertension) Alcohol use disorder MDD (major depressive disorder), recurrent episode, moderate Microscopic hematuria Thrombocytopenia Tobacco use disorder Substance use disorder Elevated LFTs Anemia Non-ST elevation [place] (NSTEMI) Dizziness Social History Household Members: Other Household Members Other:: Father Housing: House Alcohol intake: current Alcohol intake frequency: 3 or more drinks per day Alcohol type: hard liquor Patient Tobacco Use Status: Current everyday Tobacco user Tobacco use type: Cigarette e-Cigarette/Vaping Use: Never Used Substance Use Type: Crack/Cocaine Advance Directives Date on File: 06/01/24 service: No Review of Systems Const All systems reviewed & are unremarkable except as noted in HPI and below Physical Exam Vital Signs: Last Vital Signs Pulse 87 07/02/24 13:27 BP 138/80 07/02/24 13:27 Pulse Ox 97 07/02/24 13:27 Oxygen Delivery Method Room Air 07/02/24 13:27 Assessment & Plan Assessment & Plan (1) Hypothyroidism: Code(s): E03.9 - Hypothyroidism, unspecified Qualifiers: Hypothyroidism type: unspecified Qualified Code(s): E03.9 - Hypothyroidism, unspecified Plan: Plan The patient is advised to continue his current thyroid medication with ongoing monitoring of his thyroid function through scheduled lab tests on July 16. Prescriptions for atorvastatin, amlodipine, and folic acid have been processed for refills. He is advised on the importance of taking his thyroid medication on an empty stomach for optimal absorption. The patient will reduce alcohol consumption and continue his folic acid intake as previously prescribed. Based on upcoming lab results, any necessary adjustments to his thyroid medication will be considered to ensure effective management. An appointment with the office technologist will be arranged immediately following lab results for a timely review and adjustment of his medications as needed. Message has been sent. Patient was strongly encouraged to not miss this appointment. Patient was informed and verbally consented to the use of an ambient scribe for clinic note documentation during this visit. (2) Hypertensive heart disease: Code(s): I11.9 - Hypertensive heart disease without heart failure Qualifiers: Heart failure presence: without heart failure Qualified Code(s): I11.9 - Hypertensive heart disease without heart failure Plan: as above (3) HTN (hypertension): Code(s): I10 - Essential (primary) hypertension Qualifiers: Hypertension type: unspecified Qualified Code(s): I10 - Essential (primary) hypertension Plan: as above (4) Alcohol use disorder: Code(s): F10.90 - Alcohol use, unspecified, uncomplicated Plan: as above Medications: Refilled levothyroxine 175 mcg PO DAILY@0600 30 tabs 0RF amlodipine 10 mg See Protocol PO DAILY 30 tabs 0RF atorvastatin 40 mg PO BEDTIME 30 tabs 0RF folic acid 1 mg PO DAILY 30 tabs 0RF Discontinued thiamine mononitrate (vit B1) Discontinued Reason: Patient no longer taking 100 mg PO DAILY 30 tabs 0RF Coding Level of Care Code Est Pt Level 4 (33971) Diagnoses Hypothyroidism, unspecified type E03.9 Hypothyroidism type: unspecified Hypertensive heart disease without heart failure I11.9 Heart failure presence: without heart failure Hypertension, unspecified type I10 Hypertension type: unspecified Alcohol use disorder F10.90
[2024-07-02 13:27] VITALS: BP 138/80; PULSE 87; O2SAT 97
== END 2024-07-02 14:04 | disposition home or self-care (01) ==
PROVIDERS: Visit Provider Physician Assistant
DX: E03.9 Hypothyroidism, unspecified (principal); I11.9 Hypertensive heart disease without heart failure; I10 Essential (primary) hypertension; F10.90 Alcohol use, unspecified, uncomplicated

== ENCOUNTER → 2024-07-02 12:30 | Outpatient (BNVA) | payer OTHER, SELFPAY | PROVIDERS: Visit Provider Physician Assistant | DX: E03.9 Hypothyroidism, unspecified (principal); F10.90 Alcohol use, unspecified, uncomplicated; I11.9 Hypertensive heart disease without heart failure | CPT/HCPCS: 99212 ==

== ENCOUNTER 2024-07-16 06:44 | Outpatient (REF) | payer OTHER, SELFPAY ==
[2024-07-16 11:01] LABS: Thyroid Stimulating Hormone 17.46 uIU/mL (0.32-4.0)
== END 2024-07-16 06:45 | disposition home or self-care (01) ==
LOC: HO.HMGCLDS 06:44
PROVIDERS: Visit Provider Family Medicine
DX: E03.9 Hypothyroidism, unspecified (principal)
CPT/HCPCS: 36415; 84443

== ENCOUNTER 2024-07-18 09:37 | Outpatient (AMB) | payer OTHER, SELFPAY ==
--- NOTE | 2024-07-18 09:43 | A.OFFPC_ITS ---
Vital Signs 07/18/24 09:45 Height 6 ft 1.23 in Weight 240 lb 2 oz BMI 31.5 BP 136/80 Blood Pressure Location Lt brachial Position Sitting Pulse 88 Pulse Source Pulse Oximeter Temp 97.1 F Temp Source Temporal Artery Scan Pulse Oximetry (%) 95 Oxygen Delivery Method Room Air Intake Visit Reasons: establish care/ thyroid Intake Note: Patient is a new patient here to establish care for Thyroid issues, HTN, High cholesterol. Transferring care from unknown. Medical records have not been requested and have not received. Chlorine Cell Tender Required: No Exhibit Specialist: Not Required per policy Accompanied by: Self / Same As Patient Allergies No Known Allergies Allergy (Verified 07/18/24 09:59) Medication List - Last Reconciled 07/18/24 by DOM Mcintyre amlodipine 10 mg See Protocol PO DAILY aspirin 81 mg PO DAILY atorvastatin 40 mg PO BEDTIME folic acid 1 mg PO DAILY levothyroxine 175 mcg PO DAILY@0600 Tobacco use date assessed: 07/18/24 Dental Screening Dental Screen Date: 07/18/24 Did you have a dental visit in the last 12 months?: No Did you have a dental problem in the last 6 months where you did not have access to dental care?: No Was dental information given to patient?: Patient declined HPI establish care/ thyroid HPI Details Previous PCP: None Last visit: ED visit only Last PE:n/a Specialist:cardilogy saw dr. Tony in the hospital OBGYN:n/a Past medical history: Medications: Family HX: DM-brother, sister and mother has thyroid issues Problem: Piper Rehman is a 58-year-old male, new to the practice and is presenting to establish care. His concerns include hypothyroidism and evaluation of hematuria and multiple dermal cysts. He was diagnosed with hypothyroidism around six weeks ago and had been started on levothyroxine at that time. The patient reports improvements such as hair regrowth but still suffers from fatigue. Recent labs were drawn to reassess his condition. No T4 noted in labs, TSH was elevated, we will recheck TSH with T4. Asymptomatic microhematuria noted in urinalysis. He attempts to stay hydrated. Moreover, there are multiple longstanding cysts, and he expressed a desire for surgical evaluation. The patient has a persistent cough for the past five to six years and smokes half a pack of cigarettes a day. He associates recent worsening with a recent cold. There is a family history of thyroid issues in his mother and sister, and his brother was diagnosed with diabetes. On exam: posterior neck lypoma, right upper back sebaceous cyst appearing, both reported to be present for few years, and left forehead dermoid [id number] 2 month [id number] He was recently in the ED for alcohol abuse and was found to be positive for cocaine Reported that he was not interested in addiction medicine referral in office He is due for colonscopy [facility], the patient was seen in [facility] [place] [place] ED for chest tightness and significant elevated blood pressure. EKG showed T-wave inversion in the inferolateral leads suggestion of repolarization abnormality. Echo was done which showed normal LV ejection fraction with severe left ventricular hypertrophic consistent hypertensive heart disease with possible basal inferior and inferolateral wall motion abnormality which could be possibly related to of axis views. The patient was started on amlodipine with positive effects on his blood pressure. [facility] Medical History (Updated 07/22/24 @ 19:54 by DOM Mcintyre) HTN (hypertension) Alcohol use disorder MDD (major depressive disorder), recurrent episode, moderate Microscopic hematuria Thrombocytopenia Tobacco use disorder Substance use disorder Elevated LFTs Anemia Non-ST elevation IN (NSTEMI) Dizziness Surgical History History of right knee surgery Family History Brother Diabetes Mother Thyroid disease Sister Thyroid disease Social History Household Members: Other Household Members Other:: Father Housing: House Alcohol intake: current Alcohol intake frequency: 3 or more drinks per day Alcohol type: beer and hard liquor Patient Tobacco Use Status: Current everyday Tobacco user Tobacco use type: Cigarette Cigarette Packs Per Day: 0.5 Cigarettes Per Day: 10 e-Cigarette/Vaping Use: Never Used Second Hand Smoke Exposure: Yes Substance Use Type: Crack/Cocaine Advance Directives Date on File: 06/01/24 service: No Current occupational status: unemployed Vision needs: Yes (Reading glasses) Questionnaire PHQ-9 Over the last 2 weeks, how often have you been bothered by any of the following problems? 1. Little interest or pleasure in doing things: several days 2. Feeling down, depressed, or hopeless: several days 3. Trouble falling or staying asleep, or sleeping too much: several days 4. Feeling tired or having little energy: several days 5. Poor appetite or overeating: not at all 6. Feeling bad about yourself - or that you are a failure or have let yourself or your family down: not at all 7. Trouble concentrating on things, such as reading the newspaper or watching television: not at all 8. Moving or speaking so slowly that other people could have noticed. Or the opposite - being so fidgety or restless that you have been moving around a lot m ore than usual: not at all 9. Thoughts that you would be better off or of hurting yourself in some way: not at all Total score: 4 Depression Screening Interpretation: Positive Depression Screening Done: Yes 06689 - PHQ-9 Billing: Yes Source: Developed by Drs. Catracho Russo, Rachel Bolivar, Tristan Humphrey and colleagues, with an educational lashonda from [employer]. Thrive Questionnaire Date Thrive assessed: 07/18/24 I am a: Patient What is your living situation today?: I have a steady place to live Within the past 12 months, did the food you bought not last and you didn't have the money to get more?: Sometimes True Within the past 12 months, did you worry whether your food would run out before you got money to buy more?: Sometimes True Do you have trouble paying for medicines?: No Do you have trouble getting transportation to medical appointments?: No Do you have trouble paying your heating and electricity bill?: No Do you have trouble taking care of your child, family member or friend?: No Do you have trouble with day-to-day activities such as bathing, preparing meals, shopping, managing finances, etc.?: No Are you currently unemployed and looking for a job?: No Are you interested in more education?: No Please select the resources that you would like help with: None Currently or been in a relationship where the following occur: I choose not to answer THRIVE Score: 2 AUDIT C Alcohol Use Questionnaire (AUDIT-C) 1. How often do you have a drink containing alcohol?: 2-3 times a week 2. How many drinks containing alcohol do you have on a typical day when you are drinking?: 1 or 2 3. How often do you have six or more drinks on one occasion?: Less than monthly Total Score: 4 YOSHI-7 AMB Questionnaire YOSHI-7 Date YOSHI - 7 assessed: 07/18/24 Feeling nervous, anxious, or on edge: 1 = Several days Not being able to stop or control worryin = Several days Worrying too much about different things: 1 = Several days Trouble relaxin = Several days Being so restless that it is hard to sit still: 1 = Several days Becoming easily annoyed or irritable: 1 = Several days Feeling afraid as if something awful might happen: 0 = Not at all Total YOSHI-7 score (0-4 normal; 5-9 mild; 10-14 moderate; 15-21 severe): 6 Source: Developed by Drs. Catracho Russo, Rachel Bolivar, Trisatn Humphrey and colleagues, with an educational lashonda from [employer]. YOSHI-7 Assessment Billing YOSHI-7 Assessment Tool: YOSHI-7 Assessment 68839 Review of Systems Const Details: - Constitutional: Denies fever, unintentional weight loss. - Respiratory: Reports chronic cough; denies shortness of breath. - Genitourinary: Reports trace hematuria; denies dysuria or urinary frequency. - Dermatologic: Reports presence of dermal cysts. - Endocrine: Complains of fatigue, associated with hypothyroidism. - Musculoskeletal: Denies muscle or joint pain. - Neurological: Denies headaches or dizziness. Reports fatigue and Denies headache(s) Eyes Denies loss of vision ENT Denies vertigo, Denies dizziness, Denies headache(s), Reports nasal discharge, Reports nasal obstruction, Reports post nasal drip and Denies sore throat Card Denies chest pain, Denies leg edema and Denies lightheadedness Resp Reports cough (Over 5 years-smoker), Denies hemoptysis and Denies wheezing GI Denies abdominal pain, Denies melena, Denies constipation, Denies diarrhea and Denies vomiting Denies dysuria, Denies urinary frequency and Denies urinary urgency Musc Denies arthralgias, Denies joint swelling, Denies numbness and Denies tingling Skin/Breast Reports lesions (Lump posterior neck/upper back/left forehead) Neuro Denies Abnormal speech present, Denies behavioral changes, Denies vertigo, Denies dizziness, Denies headache(s), Denies loss of vision, Denies memory loss, Denies numbness and Denies tingling Psych Denies anxiety, Denies behavioral changes, Denies depression, Denies memory loss and Denies panic attacks Endo Reports fatigue Robert/Lymph Denies easy bleeding and Denies easy bruising Aller/Immun Denies wheezing Physical exam (Primary Care) Vital Signs: Last Vital Signs Temp 97.1 F 07/18/24 09:45 Pulse 88 07/18/24 09:45 BP 136/80 07/18/24 09:45 Pulse Ox 95 07/18/24 09:45 Oxygen Delivery Method Room Air 07/18/24 09:45 BMI result Body Mass Index 31.5 Tobacco/Smoking Status: Tobacco use Status Tobacco use date assessed 07/18/24 07/18/24 09:56 Patient Tobacco Use Status Current everyday Tobacco 07/18/24 09:56 Tobacco use type Cigarette 07/18/24 09:56 e-Cigarette/Vaping Use Never Used 07/18/24 09:56 PHQ-9: PHQ-9 Score PHQ-9: Total score 4 07/18/24 12:24 Depression Screening Interpretation: Positive Thrive Assessment: Date of Thrive Assessment Date Thrive assessed 07/18/24 07/18/24 09:56 Currently or been in a relationship where the following occur: I choose not to answer Const General: healthy appearing, no acute distress, alert and awake Nutritional Appearance: well nourished Orientation/consciousness: oriented to person, oriented to place and oriented to time [facility] Ears: TM's normal bilaterally General nose exam: Abnormal mucous membranes and turbinates present boggy and erythematous and Nasal discharge present purulent bilateral Eyes Conjunctivae: conjunctivae normal Sclerae: sclerae normal Pupils: Equal, round and reactive pupils present Neck Neck: Yes no lymphadenopathy and Yes no JVD Thyroid: Thyroid normal Carotids: no bruits Resp Effort & Inspection: normal respiratory effort and not tachypneic Auscultation: no crackles, no rales, no rhonchi and no wheezes Cardio Rate: regular rate Rhythm: regular rhythm Heart sounds: no murmurs and normal S1 and S2 GI Palpation (GI): Soft to palpation, nontender, no hepatomegaly and no splenomegaly Auscultation: normal bowel sounds Skin General skin exam: dry skin Lesions: lesion noted (lump to posterior neck, right upper back sabeceous cyst) and other (left forehead dermoid cyst) Neuro General: oriented to person, oriented to place and oriented to time Cranial nerves: Yes Equal, round and reactive pupils present Speech: No Abnormal speech present Gait exam (Neuro): Normal gait present Motor exam (neuro): no tremor noted Extrem Right upper extremity: full ROM Left upper extremity: full ROM Right lower extremity: full ROM; no edema Left lower extremity: full ROM; no edema Psych Mental Status: mental status grossly normal Speech and movement: Normal speech and movement present Affect: normal affect Attitude: cooperative Thought process: Normal thought process present Results Reviewed Results Reviewed: Laboratory Tests 06/17/24 06/17/24 07/16/24 01:16 01:48 07:01 WBC 6.4 RBC 2.57 L Hgb 9.2 L Hct 26.4 L MCV 102.7 H MCH 35.8 H MCHC 34.8 RDW 14.8 Plt Count 113 L D Sodium 141 Potassium 3.8 Chloride 104 Carbon Dioxide 24 Anion Gap 17 BUN 20 H Creatinine 0.93 Estim Creat Clear Calc 118.2 Estimated GFR > 60 Random Glucose 105 Calcium 9.5 Total Bilirubin 0.4 Direct Bilirubin 0.2 AST 66 H ALT 39 Alkaline Phosphatase 67 Total Protein 7.1 Albumin 4.3 Lipase 52 TSH 17.46 H Urine Color Yellow Urine Appearance Clear Urine pH 7.5 Ur Specific [place] 1.015 Urine Protein 30 (1+) H Urine Glucose (UA) Negative Urine Ketones Negative Urine Blood Small (1+) H Urine Nitrite Negative Ur Leukocyte Esterase Negative Urine RBC 11-20 H Urine WBC 0-5 Ur Squamous Epith Cells 0-2 Urine Bacteria None Seen Hyaline Casts 0-2 Coding Level of Care Code New Pt Level 4 (69972) Diagnoses Hypothyroidism, unspecified type E03.9 Hypothyroidism type: unspecified Hypertension, unspecified type I10 Hypertension type: unspecified Alcohol use disorder F10.90 Asymptomatic microscopic hematuria R31.21 Hematuria type: asymptomatic microscopic Lipoma of neck D17.0 Lipoma location: neck Sebaceous cyst L72.3 Dermoid cyst of forehead D23.39 Cocaine use F14.90 Rhinosinusitis J32.9 Additional Codes YOSHI-7 Assessment Billing - YOSHI-7 Assessment Tool: YOSHI-7 Assessment 55683 ([id number]) PHQ-9 - 52934 - PHQ-9 Billing: Yes ([id number]) Time Spent (min) 43 Assessment & Plan Assessment & Plan (1) Hypothyroidism: Code(s): E03.9 - Hypothyroidism, unspecified Category: Medical Qualifiers: Hypothyroidism type: unspecified Qualified Code(s): E03.9 - Hypothyroidism, unspecified Plan: TSH was 17.46 in ED. The patient was started on levothyroxine 175 mcg daily. This is new diangosis for the patient. We will recheck TSH and add T4, iodine and T3 (2) HTN (hypertension): Code(s): I10 - Essential (primary) hypertension Category: Medical Qualifiers: Hypertension type: unspecified Qualified Code(s): I10 - Essential (primary) hypertension Plan: Blood pressure in office was 136/80 Encouraged dash diet and activity as tolerated Continue amlodipine 10 mg daily (3) Alcohol use disorder: Code(s): F10.90 - Alcohol use, unspecified, uncomplicated Category: Medical Plan: Encouraged cessation Refused addiction medicine referral (4) Hematuria: Code(s): R31.9 - Hematuria, unspecified Category: Medical Qualifiers: Hematuria type: asymptomatic microscopic Qualified Code(s): R31.21 - Asymptomatic microscopic hematuria Plan: We will recheck urinalysis and urine cytology added (5) Lipoma: Code(s): D17.9 - Benign lipomatous neoplasm, unspecified Category: Medical Qualifiers: Lipoma location: neck Qualified Code(s): D17.0 - Benign lipomatous neoplasm of skin and subcutaneous tissue of head, face and neck Plan: General surgery referral placed (6) Sebaceous cyst: Code(s): L72.3 - Sebaceous cyst Category: Medical Plan: General surgery referral placed (7) Dermoid cyst of forehead: Code(s): D23.39 - Other benign neoplasm of skin of other parts of face Category: Medical Plan: Same as above (8) Cocaine use: Code(s): F14.90 - Cocaine use, unspecified, uncomplicated Category: Social Hx Plan: Encouraged cessation Declines addiction medicine referral (9) Rhinosinusitis: Code(s): J32.9 - Chronic sinusitis, unspecified Category: Medical Plan: Started on Augmentin 875-125 mg b.i.d. x7 days Fluticasone propionate 50 mcg/actuation 2 sprays intranasal b.i.d., and loratadine 10 mg daily p.r.n. Plan Patient to return in 6 weeks for annual physical. Complete labs a week before appointment Orders: Orders Lipid Panel 07/18/24 E03.9 - Hypothyroidism, unspecified, F10.90 - Alcohol use, unspecified, uncomplicated, G73.7 - Myopathy in diseases classified elsewhere, I10 - Essential (primary) hypertension, I11.9 - Hypertensive heart disease without heart failure TSH reflex Free T4 07/18/24 E03.9 - Hypothyroidism, unspecified, F10.90 - Alcohol use, unspecified, uncomplicated, G73.7 - Myopathy in diseases classified elsewhere, I10 - Essential (primary) hypertension, I11.9 - Hypertensive heart disease without heart failure Triiodothyronine T3 Total 07/18/24 E03.9 - Hypothyroidism, unspecified, F10.90 - Alcohol use, unspecified, uncomplicated, G73.7 - Myopathy in diseases classified elsewhere, I10 - Essential (primary) hypertension, I11.9 - Hypertensive heart disease without heart failure Triiodothyronine T3 Reverse 07/18/24 E03.9 - Hypothyroidism, unspecified, F10.90 - Alcohol use, unspecified, uncomplicated, G73.7 - Myopathy in diseases classified elsewhere, I10 - Essential (primary) hypertension, I11.9 - Hypertensive heart disease without heart failure Iodine, Serum/Plasma 07/18/24 E03.9 - Hypothyroidism, unspecified, F10.90 - Alcohol use, unspecified, uncomplicated, G73.7 - Myopathy in diseases classified elsewhere, I10 - Essential (primary) hypertension, I11.9 - Hypertensive heart disease without heart failure Urine Cytology 07/18/24 R31.9 - Hematuria, unspecified Vitamin D 25-OH Total 07/18/24 E03.9 - Hypothyroidism, unspecified, F10.90 - Alcohol use, unspecified, uncomplicated, G73.7 - Myopathy in diseases classified elsewhere, I10 - Essential (primary) hypertension, I11.9 - Hypertensive heart disease without heart failure Glucose Fasting 07/18/24 E03.9 - Hypothyroidism, unspecified, F10.90 - Alcohol use, unspecified, uncomplicated, G73.7 - Myopathy in diseases classified elsewhere, I10 - Essential (primary) hypertension, I11.9 - Hypertensive heart disease without heart failure UA CC w/rflx Micro + Cult 07/18/24 E03.9 - Hypothyroidism, unspecified, F10.90 - Alcohol use, unspecified, uncomplicated, G73.7 - Myopathy in diseases classified elsewhere, I10 - Essential (primary) hypertension, I11.9 - Hypertensive heart disease without heart failure Triiodothyronine T3 Free 07/18/24 E03.9 - Hypothyroidism, unspecified, F10.90 - Alcohol use, unspecified, uncomplicated, G73.7 - Myopathy in diseases classified elsewhere, I10 - Essential (primary) hypertension, I11.9 - Hypertensive heart disease without heart failure Free T4 (Free Thyroxine) 07/18/24 E03.9 - Hypothyroidism, unspecified, F10.90 - Alcohol use, unspecified, uncomplicated, G73.7 - Myopathy in diseases classified elsewhere, I10 - Essential (primary) hypertension, I11.9 - Hypertensive heart disease without heart failure Referrals Gastroenterology Referral Z12.11 - Encounter for screening for malignant neoplasm of colon, Z12.12 - Encounter for screening for malignant neoplasm of rectum General Surgery Referral D17.0 - Benign lipomatous neoplasm of skin and subcutaneous tissue of head, face and neck, D23.39 - Other benign neoplasm of skin of other parts of face, L72.3 - Sebaceous cyst Medications: New amoxicillin-pot clavulanate 875-125 mg 1 tab PO BID 7 days 14 tabs 0RF fluticasone propionate 50 mcg/actuation administer into each nostril 2 sprays intranasal BID 16 grams 0RF loratadine (Claritin) 10 mg PO DAILY PRN 90 tabs 3RF allergy symptoms
[2024-07-18 09:45] VITALS: BP 136/80; PULSE 88; TEMP 36.2; O2SAT 95; BMI 31.5
== END 2024-07-18 10:36 | disposition home or self-care (01) ==
DX: E03.9 Hypothyroidism, unspecified (principal); I10 Essential (primary) hypertension; F10.90 Alcohol use, unspecified, uncomplicated; R31.21 Asymptomatic microscopic hematuria; D17.0 Benign lipomatous neoplasm of skin and subcutaneous tissue of head, face and neck; L72.3 Sebaceous cyst; D23.39 Other benign neoplasm of skin of other parts of face; F14.90 Cocaine use, unspecified, uncomplicated; J32.9 Chronic sinusitis, unspecified

== ENCOUNTER → 2024-07-18 09:37 | Outpatient (BNVA) | payer OTHER, SELFPAY | DX: E03.9 Hypothyroidism, unspecified (principal); I10 Essential (primary) hypertension; R31.21 Asymptomatic microscopic hematuria; D17.0 Benign lipomatous neoplasm of skin and subcutaneous tissue of head, face and neck; L72.3 Sebaceous cyst; J32.9 Chronic sinusitis, unspecified; F10.90 Alcohol use, unspecified, uncomplicated; F14.90 Cocaine use, unspecified, uncomplicated; Z79.899 Other long term (current) drug therapy | CPT/HCPCS: 96127; 99202 ==

== ENCOUNTER 2024-08-29 08:54 | Outpatient (AMB) | payer OTHER, SELFPAY ==
--- NOTE | 2024-08-29 08:59 | A.OFFPC_ITS ---
Vital Signs 3 08/29/24 09:02 08/29/24 09:28 Height 6 ft 1.23 in Weight 237 lb 6 oz BMI 31.1 BP 120/66 150/84 H Blood Pressure Location Lt brachial Lt brachial Position Sitting Pulse 68 Pulse Source Pulse Oximeter Temp 97.3 F Temp Source Temporal Artery Scan Pulse Oximetry (%) 98 Oxygen Delivery Method Room Air Intake Visit Reasons: annual Intake Note: Patient is here today for a physical. Waist Presser Required: No Process Analyst: Not Required per policy Accompanied by: Self / Same As Patient Allergies No Known Allergies Allergy (Verified 08/30/24 14:05) Medication List - Last Reconciled 08/29/24 by DOM Mcintyre amlodipine 10 mg See Protocol PO DAILY aspirin 81 mg PO DAILY atorvastatin 40 mg PO BEDTIME fluticasone propionate 50 mcg/actuation 2 sprays intranasal BID folic acid 1 mg PO DAILY levothyroxine 175 mcg PO DAILY@0600 loratadine (Claritin) 10 mg PO DAILY PRN Tobacco use date assessed: 08/29/24 Dental Screening Dental Screen Date: 07/18/24 HPI annual 2 HPI0 Details The patient is presenting or his annual physical Dentist:he is waiting for callback for an appt Eye:no, he does not remember how long ago-the patient was encouraged to make an appointment Snellen: Right: Left: Corrected vision:wear cheaters to read STI screening: Colonoscopy:referred on his previous visit and has an appt in October Smer:n/a PHQ-9: Flu: reports COVID:reports that he is anti-vaccines Tdap: reports that he is anti-vaccines Diet:regular Exercise:walking more since he was started on the thyroid medication The patient is a 58-year-old male presenting for his annual physical. He presents with concerns related to hypothyroidism management and associated symptoms. The patient reports a history of hypothyroidism, which has been managed with levothyroxine. He noted significant muscle loss and fatigue over the past four to five months, which he attributes to his thyroid condition. He has been experiencing improvement in muscle mass and is now able to walk almost a mile a day. The patient has a history of hypertension, for which he was prescribed medication, but he ran out of it recently. Despite being off the medication for five days, his blood pressure readings have been favorable. He reports symptoms of anemia, including fatigue and weakness, and there is a concern for vitamin B12 and folic acid deficiencies due to a history of heavy alcohol use. The patient has been advised to undergo lab tests to assess these deficiencies. The patient also reports erectile dysfunction, which he believes may be related to his thyroid condition and possible low testosterone levels. He has been advised to have his testosterone levels checked during his upcoming lab work. The patient was ordered labs to be completed prior to this appointment but was unable to get this done before the visit, again he was urge to get the blood work done to reassess his levels. He was started on levothyroxine in the ED after he was found to have an elevated TSH at 17.46, there were not T4 completed. He reports that he has been feeling much better compared to how he was feeling prior to going to the ED. [facility] Medical History Anemia HTN (hypertension) Alcohol use disorder MDD (major depressive disorder), recurrent episode, moderate Microscopic hematuria Thrombocytopenia Tobacco use disorder Substance use disorder Elevated LFTs Non-ST elevation PA (NSTEMI) Dizziness Surgical History History of right knee surgery Family History Brother Diabetes Mother Thyroid disease Sister Thyroid disease Social History Household Members: Other Household Members Other:: Father Housing: House Alcohol intake: current Alcohol intake frequency: 3 or more drinks per day Alcohol type: beer and hard liquor Patient Tobacco Use Status: Current everyday Tobacco user Tobacco use type: Cigarette Cigarette Packs Per Day: 0.5 Cigarettes Per Day: 10 e-Cigarette/Vaping Use: Never Used Second Hand Smoke Exposure: Yes Substance Use Type: Crack/Cocaine Advance Directives Date on File: 06/01/24 service: No Current occupational status: unemployed Vision needs: Yes (Reading glasses) Questionnaire Thrive Questionnaire Date Thrive assessed: 07/18/24 I am a: Patient What is your living situation today?: I have a steady place to live Within the past 12 months, did the food you bought not last and you didn't have the money to get more?: Sometimes True Within the past 12 months, did you worry whether your food would run out before you got money to buy more?: Sometimes True Do you have trouble paying for medicines?: No Do you have trouble getting transportation to medical appointments?: No Do you have trouble paying your heating and electricity bill?: No Do you have trouble taking care of your child, family member or friend?: No Do you have trouble with day-to-day activities such as bathing, preparing meals, shopping, managing finances, etc.?: No Are you currently unemployed and looking for a job?: No Are you interested in more education?: No Please select the resources that you would like help with: None Currently or been in a relationship where the following occur: I choose not to answer THRIVE Score: 2 YOSHI-7 AMB Questionnaire YOSHI-7 Date YOSHI - 7 assessed: 07/18/24 Source: Developed by Drs. Catracho Russo, Rachel Bolivar, Tristan Humphrey and colleagues, with an educational lashonda from [email or web address]. Review of Systems Const Reports fatigue, Denies headache(s) and Reports weakness Eyes Denies loss of vision ENT Denies vertigo, Denies dizziness, Denies headache(s) and Denies sore throat Card Denies chest pain, Denies leg edema, Denies lightheadedness and Reports dyspnea on exertion ( overexertion ) Resp Denies cough, Denies hemoptysis, Reports dyspnea on exertion ( overexertion ) and Denies wheezing GI Denies abdominal pain, Denies melena, Denies constipation, Denies diarrhea and Denies vomiting Reports change in libido, Denies dysuria, Denies urinary frequency and Denies urinary urgency Musc Denies arthralgias, Denies joint swelling, Denies numbness and Denies tingling Neuro Denies Abnormal speech present, Denies behavioral changes, Denies vertigo, Denies dizziness, Denies headache(s), Denies loss of vision, Denies memory loss, Denies numbness, Denies tingling and Reports weakness Psych Denies anxiety, Denies behavioral changes, Reports change in libido, Denies depression, Denies memory loss and Denies panic attacks Endo Reports change in libido and Reports fatigue Robert/Lymph Denies easy bleeding and Denies easy bruising Aller/Immun Denies wheezing Physical exam (Primary Care) Vital Signs: Last Vital Signs Temp 97.3 F 08/29/24 09:02 Pulse 68 08/29/24 09:02 BP 150/84 H 08/29/24 09:28 Pulse Ox 98 08/29/24 09:02 Oxygen Delivery Method Room Air 08/29/24 09:02 BMI result Body Mass Index 31.1 Tobacco/Smoking Status: Tobacco use Status Tobacco use date assessed 08/29/24 08/29/24 09:07 Patient Tobacco Use Status Current everyday Tobacco 08/29/24 09:07 Tobacco use type Cigarette 08/29/24 09:07 e-Cigarette/Vaping Use Never Used 08/29/24 09:07 Thrive Assessment: Date of Thrive Assessment Date Thrive assessed 07/18/24 08/29/24 09:07 Currently or been in a relationship where the following occur: I choose not to answer Const General: healthy appearing, no acute distress, alert and awake Nutritional Appearance: well nourished Orientation/consciousness: oriented to person, oriented to place and oriented to time HENMT Ears: TM's normal bilaterally General nose exam: Normal nasal mucous membranes and turbinates present Face images: 2 1. sebaceous cyst, nontender, no discoloration Eyes Conjunctivae: conjunctivae normal Sclerae: sclerae normal Pupils: Equal, round and reactive pupils present Neck Neck: Yes no lymphadenopathy and Yes no JVD Thyroid: Thyroid normal Carotids: no bruits Neck images: 2 1. raised epidermal cyst, mild erythema, nontender Resp Effort & Inspection: normal respiratory effort and not tachypneic Auscultation: no crackles, no rales, no rhonchi and no wheezes Cardio Rate: regular rate Rhythm: regular rhythm Heart sounds: no murmurs and normal S1 and S2 GI Palpation (GI): Soft to palpation, nontender, no hepatomegaly and no splenomegaly Auscultation: normal bowel sounds Back/Spine/Pelvis Back/spine/pelvis image: 2 1. sebaceous cyst, nontender, mild erythema, no drainage Skin General skin exam: dry skin Lesions: lesion noted (Multiple cyst ( 2 in upper back and 1 on his forehead) ) Neuro General: oriented to person, oriented to place and oriented to time Cranial nerves: Yes Equal, round and reactive pupils present Speech: No Abnormal speech present Gait exam (Neuro): Normal gait present Motor exam (neuro): no tremor noted Deep tendon reflexes (DTR's): Right triceps reflex intensity grade: 1+, Left triceps reflex intensity grade: 1+, Rt Biceps (C5, C6): 1+, Left biceps reflex intensity grade: 1+, Right brachioradialis reflex intensity grade: 2+, Left brachioradialis reflex intensity grade: 2+, Right patellar reflex intensity grade: 2+ and Left patellar reflex intensity grade: 2+ Extrem Right upper extremity: full ROM Left upper extremity: full ROM Right lower extremity: full ROM; no edema Left lower extremity: full ROM; no edema Psych Mental Status: mental status grossly normal Speech and movement: Normal speech and movement present Affect: normal affect Attitude: cooperative Thought process: Normal thought process present Coding Level of Care Code Est Pt Prev Care 40-64y(78636) Diagnoses Annual physical exam Z00.00 Hypothyroidism, unspecified type E03.9 Hypothyroidism type: unspecified Hypertension, unspecified type I10 Hypertension type: unspecified Alcohol use disorder F10.90 Asymptomatic microscopic hematuria R31.21 Hematuria type: asymptomatic microscopic Sebaceous cyst L72.3 Cocaine use F14.90 Anemia, unspecified type D64.9 Anemia type: unspecified type Fatigue, unspecified type R53.83 Fatigue type: unspecified Time Spent (min) 40 Assessment & Plan Assessment & Plan (1) Annual physical exam: Code(s): Z00.00 - Encounter for general adult medical examination without abnormal findings Category: Medical Plan: Preventative guidelines reviewed with patient, he did not complete his follow labs to be reviewed.The patient reports that he awaiting a call back to see a dentist. He was encouraged to get his eyes checked as well. He has an appt in October with GI pertaining to his colonoscopy. He declines all vaccines. (2) Hypothyroidism: Code(s): E03.9 - Hypothyroidism, unspecified Category: Medical Qualifiers: Hypothyroidism type: unspecified Qualified Code(s): E03.9 - Hypothyroidism, unspecified Plan: TSH was 17.46 in ED. The patient was started on levothyroxine 175 mcg daily. This is new diagnosis for the patient. TSH and add T4, iodine and T3 were ordered on his previous visit. Encouraged the patient to get this done mario. (3) HTN (hypertension): Code(s): I10 - Essential (primary) hypertension Category: Medical Qualifiers: Hypertension type: unspecified Qualified Code(s): I10 - Essential (primary) hypertension Plan: Blood pressure in office was 150/84-goal is systolic less than 130mmhg. Reports that he ran out of the amlodipine and he figured that he had this appointment so he waited Encouraged dash diet and activity as tolerated Continue amlodipine 10 mg daily. RX refilled (4) Alcohol use disorder: Code(s): F10.90 - Alcohol use, unspecified, uncomplicated Category: Medical Plan: Encouraged cessation Refused addiction medicine referral (5) Hematuria: Code(s): R31.9 - Hematuria, unspecified Category: Medical Qualifiers: Hematuria type: asymptomatic microscopic Qualified Code(s): R31.21 - Asymptomatic microscopic hematuria Plan: Urine cytology was added to preordered labs that he patient was not able to complete. Encouraged the patient to get these done. (6) Sebaceous cyst: Code(s): L72.3 - Sebaceous cyst Category: Medical Plan: The patient has three cysts, two on his back and one on his forehead. On his previous visit, the patient was referred to general surgery for possible excision. He has an upcoming appt with general surgery. (7) Cocaine use: Code(s): F14.90 - Cocaine use, unspecified, uncomplicated Category: Social Hx Plan: Encouraged cessation Declines addiction medicine referral (8) Anemia: Code(s): D64.9 - Anemia, unspecified Category: Medical Qualifiers: Anemia type: unspecified type Qualified Code(s): D64.9 - Anemia, unspecified Plan: The patient anemia is more likely due to his excessive alcohol use. B12 and folate and iron panel were ordered to further evaluate. Awaiting for the patient to complete labs to gain more information on the cause of his anemia. (9) Fatigue: Code(s): R53.83 - Other fatigue Category: Medical Qualifiers: Fatigue type: unspecified Qualified Code(s): R53.83 - Other fatigue Plan: This could be due to the patient anemia or possible his thyroid. Explained to the patient that is it very important to complete his labs to further evaluate his condition. Plan Return in 3 months, encouraged the patient to get his blood work completed as soon as possible and not to wait on his follow appointment. Orders: Orders 2 IRON PROFILE 08/29/24 D64.9 - Anemia, unspecified Vitamin B12 and Folate 08/29/24 D64.9 - Anemia, unspecified Testosterone, Free/Total 08/29/24 R53.83 - Other fatigue Medications: Refilled 2 amlodipine 10 mg See Protocol PO DAILY 90 tabs 3RF amlodipine 10 mg See Protocol PO DAILY 30 tabs 0RF folic acid 1 mg PO DAILY 90 tabs 3RF
[2024-08-29 09:02] VITALS: BP 120/66; PULSE 68; TEMP 36.3; O2SAT 98; BMI 31.1
[2024-08-29 09:28] VITALS: BP 150/84
== END 2024-08-29 09:45 | disposition home or self-care (01) ==
LOC: HO.HMCH 08:55
DX: Z00.00 Encounter for general adult medical examination without abnormal findings (principal); E03.9 Hypothyroidism, unspecified; I10 Essential (primary) hypertension; F10.90 Alcohol use, unspecified, uncomplicated; R31.21 Asymptomatic microscopic hematuria; L72.3 Sebaceous cyst; F14.90 Cocaine use, unspecified, uncomplicated; D64.9 Anemia, unspecified; R53.83 Other fatigue

== ENCOUNTER → 2024-08-29 08:54 | Outpatient (BNVA) | payer OTHER, SELFPAY | DX: Z00.00 Encounter for general adult medical examination without abnormal findings (principal); E03.9 Hypothyroidism, unspecified; I10 Essential (primary) hypertension; N52.9 Male erectile dysfunction, unspecified; F10.90 Alcohol use, unspecified, uncomplicated; R31.21 Asymptomatic microscopic hematuria; L72.3 Sebaceous cyst; F14.90 Cocaine use, unspecified, uncomplicated; R53.83 Other fatigue; D64.9 Anemia, unspecified | CPT/HCPCS: 99396 ==

== ENCOUNTER 2024-08-30 13:56 | Outpatient (AMB) | payer OTHER, SELFPAY ==
--- NOTE | 2024-08-30 13:57 | MHC.OFFVIS ---
Vital Signs 08/30/24 14:07 Height 6 ft 1.5 in Weight 239 lb 2 oz BMI 31.1 BP 153/87 H Blood Pressure Location Lt brachial Position Sitting Pulse 70 Intake Visit Reasons: Sebaceous cyst Intake Note: Patient is seen in office for evaluation of a sebaceous cyst. Pt c/o: 2 cyst in the back for many yrs, ocassional discharge, no pain, one in the forehead, less than a year, no discharge, no prior cyst or removal Web Merchant Required: No Accompanied by: Self / Same As Patient Allergies No Known Allergies Allergy (Verified 08/30/24 14:05) Medication List - Last Reconciled 08/30/24 by Andrés Cervantes MD amlodipine 10 mg See Protocol PO DAILY aspirin 81 mg PO DAILY atorvastatin 40 mg PO BEDTIME fluticasone propionate 50 mcg/actuation 2 sprays intranasal BID folic acid 1 mg PO DAILY levothyroxine 175 mcg PO DAILY@0600 loratadine (Claritin) 10 mg PO DAILY PRN HPI Comments Details: 58-year-old male patient presenting for evaluation of several sebaceous cysts including 2 located in the back and 1 located in the forehead. The lesions on the back have been present for many years and have gradually increased in size. He occasionally has some discharge from the cysts but generally they are asymptomatic. He denies any pain, fever or chills. He also has a new or lesion located on the forehead which has never become infected but is increasing in size. He is requesting excision of all 3 lesions. He denies any previous surgical procedure involving any of the cysts. [facility] Medical History Anemia HTN (hypertension) Alcohol use disorder MDD (major depressive disorder), recurrent episode, moderate Microscopic hematuria Thrombocytopenia Tobacco use disorder Substance use disorder Elevated LFTs Non-ST elevation [place] (NSTEMI) Dizziness Surgical History History of right knee surgery Family History Brother Diabetes Mother Thyroid disease Sister Thyroid disease Social History Household Members: Other Household Members Other:: Father Housing: House Alcohol intake: current Alcohol intake frequency: 3 or more drinks per day Alcohol type: beer and hard liquor Patient Tobacco Use Status: Current everyday Tobacco user Tobacco use type: Cigarette Cigarette Packs Per Day: 0.5 Cigarettes Per Day: 10 e-Cigarette/Vaping Use: Never Used Second Hand Smoke Exposure: Yes Substance Use Type: Crack/Cocaine Advance Directives Date on File: 06/01/24 service: No Current occupational status: unemployed Vision needs: Yes (Reading glasses) Review of Systems Const All systems reviewed & are unremarkable except as noted in HPI and below Physical Exam Const General: cooperative and no acute distress Nutritional Appearance: well nourished Orientation/consciousness: patient oriented x3 Limitations: no limitations HEENT Head: Yes normocephalic and Yes atraumatic Head images:  1. 1.5 cm sebaceous cyst, noninfected, nontender Ears: hearing grossly normal bilaterally Neck Neck images:  1. 4 cm raised epidermal inclusion cyst with slight erythema and fluctuance to palpation but no tenderness. Resp Effort & Inspection: normal respiratory effort, no audible wheezes, no cough and no respiratory distress Cardio Jugular venous distension: no JVD GI Inspection: Yes normal to inspection Back/Spine/Pelvis Back/spine/pelvis image:  1. 4.5 cm sebaceous cyst to the right of midline with slight redness in the skin and fluctuance to palpation. No tenderness to palpation. Skin Other: Warm, dry, no rash Neuro General: patient oriented x3 Extrem General: Yes no clubbing, cyanosis or edema Assessment & Plan Assessment & Plan (1) Sebaceous cyst: Code(s): L72.3 - Sebaceous cyst Category: Medical Plan 58-year-old male patient presenting with 3 sebaceous cyst including 2 on the back and 1 on the forehead which he has requested excision. All are noninfected in the 2 in the back are quite large measuring 4 and 4.5 cm in diameter. I recommended excision of the sebaceous cysts of the back x2 and forehead x1 under local anesthesia. After discussion of the procedure, risks, and alternatives, he consents to the surgery. This will be performed as a minor surgery at his earliest convenience. Coding Level of Care Code New Pt Level 4 (99806) Diagnoses Sebaceous cyst L72.3
[2024-08-30 14:07] VITALS: BP 153/87; PULSE 70; BMI 31.1
== END 2024-08-30 14:20 | disposition home or self-care (01) ==
LOC: HO.HGS 13:56
PROVIDERS: Visit Provider Surgery
DX: L72.3 Sebaceous cyst (principal)
CPT/HCPCS: 99204

== ENCOUNTER → 2024-08-30 13:56 | Outpatient (BNVA) | payer OTHER, SELFPAY | PROVIDERS: Visit Provider Surgery | DX: L72.3 Sebaceous cyst (principal) | CPT/HCPCS: 99202 ==

== ENCOUNTER 2024-09-27 13:37 | Outpatient (REF) | payer OTHER, SELFPAY ==
[2024-09-27 13:31] VITALS: BP 141/88; PULSE 92; RESP 15; TEMP 36.3; O2SAT 96; BMI 31.7
--- NOTE | 2024-09-27 15:03 | P.OP_ITS ---
Operative Note Operative Note Date of Service: 09/27/24 Narrative: Preoperative diagnosis: sebaceous cyst x2 of the back and of left forehead Postoperative diagnosis: Same Procedure:Excision of sebaceous cyst x2 of the back and of left forehead Surgeon: Andrés Cervantes MD Clinical Laboratory Aides Teacher: None Anesthesia: Lidocaine 1% with epinephrine 25 mL Indications for procedure: 58-year-old male patient presenting with 2 very large sebaceous cyst of the back when we located at the base of the neck and a 2nd located in the mid upper back. He also has a smaller cyst over the forehead on the left side. On examination he has a 4.5 cm sebaceous cyst of the upper midback to the right of midline a 4 cm sebaceous cyst at the base of the neck and a 1.5 cm sebaceous cyst over the left forehead Operative findings: Epidermal inclusion cyst/sebaceous cyst of the right upper back measuring 4.5 cm, left back at the base of the neck measuring 4 cm, and forehead left measuring 1.5 cm Specimen: Sebaceous cyst of the back x2, sebaceous cyst of the forehead x1 Estimated blood loss: 10 mL Complications: None Procedure details: Patient was brought to the minor surgery suite and placed in a prone position. The site of surgery was confirmed by the patient in the back and forehead. After assuring informed consent the skin was prepped with Betadine and draped in a sterile fashion. Local anesthesia was infiltrated around the 2 back lesions. Beginning in the right upper back an elliptical incision was then made with a scalpel and carried out through subcutaneous tissue up to the cyst wall. The sharp dissection was continued around the wall of the cyst and the cyst was completely excised. The cyst was then passed off the table and sent to pathology for further examination. Wounds were then irrigated with saline solution. Dermis was then reapproximated using interrupted 3-0 Polysorb sutures. Skin was then closed using a running 3-0 nylon suture. Attention was then directed to the left upper back at the base of the neck. Again an elliptical incision was made with a scalpel and carried out through subcutaneous tissue. Dissection was continued along the cyst wall in the cyst completely excised. The cyst was passed off the table and sent to pathology for further examination. Wounds were then irrigated with saline solution and suctioned dry. Dermis was then reapproximated using interrupted 3- 0 Polysorb sutures. Skin was closed using a running 3-0 nylon suture. Sterile dressings consisting of 2 x 2 gauze and Tegaderm were then applied to both back wounds. The patient was then placed in a supine position. Skin was then prepped with Betadine and draped in a sterile fashion over the forehead cyst. Local anesthesia was then infiltrated around the cyst. Elliptical incision was then created with a scalpel and carried down to the cyst wall. Dissection was continued around the cyst wall in the lesion completely excised. This was then passed off the table and sent to pathology for further examination. Skin was then closed using interrupted 5 0 nylon sutures. Sterile dressings consisting of a Band-Aid was then applied. The patient tolerated the procedure well. He was discharged to home in stable condition.
== END 2024-09-27 13:38 | disposition home or self-care (01) ==
LOC: HO.MS 13:37
PROVIDERS: Visit Provider Surgery
PROC: (CPT 11442; principal; 2024-09-27 14:00)
DX: L72.3 Sebaceous cyst (principal)
CPT/HCPCS: 11442; 11406; 11424; 88304; J2004

== ENCOUNTER → 2024-09-27 13:37 | Outpatient (BNV) | payer OTHER, SELFPAY | PROVIDERS: Visit Provider Surgery | DX: L72.0 Epidermal cyst (principal) | CPT/HCPCS: 11404; 11442 ==

== ENCOUNTER → 2024-10-10 11:52 | Outpatient (BNVA) | payer OTHER, SELFPAY | PROVIDERS: Visit Provider Surgery | DX: Z48.02 Encounter for removal of sutures (principal) | CPT/HCPCS: 99211 ==

== ENCOUNTER 2024-11-29 08:51 | Outpatient (AMB) | payer OTHER, SELFPAY ==
--- NOTE | 2024-11-29 08:57 | MHC.PC.OV ---
Vital Signs 11/29/24 08:58 Height 6 ft 1 in Weight 249 lb 8 oz BMI 32.9 BP 150/86 H Blood Pressure Location Lt brachial Position Sitting Pulse 84 Pulse Source Pulse Oximeter Temp 97.1 F Temp Source Temporal Artery Scan Pulse Oximetry (%) 98 Oxygen Delivery Method Room Air Intake Visit Reasons: anemia/htn/hypothyroid Intake Note: Patient is here to follow up on Anemia, HTN, Hypothyriod. 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 Liner Man: Not Required per policy Accompanied by: Self / Same As Patient Allergies No Known Allergies Allergy (Verified 11/29/24 09:19) Medication List - Last Reconciled 11/29/24 by DOM Mcintyre amlodipine 10 mg See Protocol PO DAILY aspirin 81 mg PO DAILY atorvastatin 40 mg PO BEDTIME fluticasone propionate 50 mcg/actuation 2 sprays intranasal BID folic acid 1 mg PO DAILY levothyroxine 175 mcg PO DAILY@0600 loratadine (Claritin) 10 mg PO DAILY PRN Tobacco use date assessed: 11/29/24 Dental Screening Dental Screen Date: 07/18/24 HPI anemia/htn/hypothyroid HPI Details The patient is a 59-year-old male presenting with hypertension, hypothyroidism, hematuria, dyspnea, and depression. The patient has not completed follow up labs and reports that he would get this done as soon as he can. Hypertension has been noted with a recent blood pressure reading of systolic 152 mmHg, and the patient has not yet taken his medication today. The patient has a history of hypothyroidism, with plans to repeat labs to assess thyroid function. The patient reports hematuria, with a recommendation to repeat urine tests for further evaluation. Dyspnea has been a persistent issue for about five years, exacerbated by physical activity, and the patient has a significant smoking history of 35 years. Lung auscultation revealed chunky sounds, and a referral for a lung cancer screening CT scan has been made. The patient was ordered a chest xray to further evaluate. Augmentin 875-125 mg BID x 7 days ordered. The patient is experiencing major depressive disorder, expressing feelings of severe depression and lack of motivation. He has previously tried Zoloft with positive effects and is considering restarting it. [facility] Medical History (Updated 11/29/24 @ 10:04 by DOM Mcintyre) Anemia HTN (hypertension) Alcohol use disorder MDD (major depressive disorder), recurrent episode, moderate Microscopic hematuria Thrombocytopenia Tobacco use disorder Substance use disorder Elevated LFTs Non-ST elevation DC (NSTEMI) Dizziness Surgical History Hx of excision of mass (09/27/24) History of right knee surgery Family History Brother Diabetes Mother Thyroid disease Sister Thyroid disease Social History Household Members: Other Household Members Other:: Father Housing: House Alcohol intake: current Alcohol intake frequency: 3 or more drinks per day Alcohol type: beer and hard liquor Patient Tobacco Use Status: Current everyday Tobacco user Tobacco use type: Cigarette Cigarette Packs Per Day: 0.5 Cigarettes Per Day: 10 e-Cigarette/Vaping Use: Never Used Second Hand Smoke Exposure: Yes Substance Use Type: Crack/Cocaine Advance Directives Date on File: 06/01/24 service: No Current occupational status: unemployed Vision needs: Yes (Reading glasses) Questionnaire Thrive Questionnaire Date Thrive assessed: 07/18/24 I am a: Patient What is your living situation today?: I have a steady place to live Within the past 12 months, did the food you bought not last and you didn't have the money to get more?: Sometimes True Within the past 12 months, did you worry whether your food would run out before you got money to buy more?: Sometimes True Do you have trouble paying for medicines?: No Do you have trouble getting transportation to medical appointments?: No Do you have trouble paying your heating and electricity bill?: No Do you have trouble taking care of your child, family member or friend?: No Do you have trouble with day-to-day activities such as bathing, preparing meals, shopping, managing finances, etc.?: No Are you currently unemployed and looking for a job?: No Are you interested in more education?: No Please select the resources that you would like help with: None Currently or been in a relationship where the following occur: I choose not to answer THRIVE Score: 2 YOSHI-7 AMB Questionnaire YOSHI-7 Date YOSHI - 7 assessed: 07/18/24 Source: Developed by Rachel Maher B.W. Osmel, Tristan Humphrey and colleagues, with an educational lashonda from [employer]. Review of Systems Const Denies body aches, Denies chills, Reports fatigue, Denies fever(s), Denies headache(s) and Denies poor appetite Eyes Reports no additional complaints ENT Denies dysphagia, Denies dizziness, Denies headache(s) and Denies odynophagia Card Denies chest pain, Denies syncope, Denies edema, Denies irregular heart rhythm, Denies lightheadedness, Denies dyspnea and Reports dyspnea on exertion Resp Reports cough (productive yellowish secretion), Denies dyspnea and Reports dyspnea on exertion GI Denies abdominal pain, Denies constipation, Denies dysphagia, Denies diarrhea, Denies nausea, Denies odynophagia and Denies vomiting Reports no additional complaints Musc Reports no additional complaints and Denies abnormal gait Skin/Breast Reports system reviewed and no additional complaints, except as documented Neuro Denies abnormal gait, Denies dizziness, Denies syncope and Denies headache(s) Psych Reports depression Endo Reports fatigue Physical exam (Primary Care) Vital Signs: Last Vital Signs Temp 97.1 F 11/29/24 08:58 Pulse 84 11/29/24 08:58 BP 150/86 H 11/29/24 08:58 Pulse Ox 98 11/29/24 08:58 Oxygen Delivery Method Room Air 11/29/24 08:58 BMI result Body Mass Index 32.9 Tobacco/Smoking Status: Tobacco use Status Tobacco use date assessed 11/29/24 11/29/24 09:03 Patient Tobacco Use Status Current everyday Tobacco 11/29/24 08:58 Tobacco use type Cigarette 11/29/24 08:58 e-Cigarette/Vaping Use Never Used 11/29/24 08:58 Thrive Assessment: Date of Thrive Assessment Date Thrive assessed 07/18/24 11/29/24 08:58 Currently or been in a relationship where the following occur: I choose not to answer Const General: cooperative, healthy appearing, comfortable and no acute distress Orientation/consciousness: patient oriented x3 HENMT Head: Yes normocephalic Ears: TM's normal bilaterally General nose exam: Abnormal mucous membranes and turbinates present erythematous bilateral Face and sinus: No sinus tenderness Eyes General: appearance normal, both eyes and all related structures Conjunctivae: conjunctivae normal Neck Neck: Yes full ROM and Yes no lymphadenopathy Resp Effort & Inspection: normal respiratory effort and Actively coughing Quality: productive Auscultation: no crackles, rales bilateral in the lower lung teran and in the upper lung teran, no rhonchi and no wheezes Cardio Rate: regular rate Rhythm: regular rhythm Heart sounds: S1 normal heart sound present and S2 normal heart sound present GI Palpation (GI): Soft to palpation and nontender Auscultation: normal bowel sounds General: Yes no CVA tenderness Back/Spine/Pelvis Back: no CVA tenderness Skin General skin exam: no rashes or lesions noted Neuro General: patient oriented x3 Gait exam (Neuro): Normal gait present Extrem General: Yes normal to inspection, Yes full ROM and No edema Right lower extremity: lower leg Details: no edema Left lower extremity: lower leg Details: no edema Psych Affect: normal affect Attitude: cooperative Insight: Good insight present (Psych) Judgement: Good judgement present (Psych) Coding Level of Care Code Est Pt Level 4 (62476) Diagnoses Hypothyroidism, unspecified type E03.9 Hypothyroidism type: unspecified Hypertension, unspecified type I10 Hypertension type: unspecified Alcohol use disorder F10.90 Asymptomatic microscopic hematuria R31.21 Hematuria type: asymptomatic microscopic Sebaceous cyst L72.3 Cocaine use F14.90 Anemia, unspecified type D64.9 Anemia type: unspecified type Fatigue, unspecified type R53.83 Fatigue type: unspecified Dyspnea, unspecified type R06.00 Dyspnea type: unspecified Encounter for screening for lung cancer Z12.2 Abnormal breath sounds R09.89 Depression, unspecified depression type F32.A Depression Type: unspecified Time Spent (min) 41 Assessment & Plan Assessment & Plan (1) Hypothyroidism: Code(s): E03.9 - Hypothyroidism, unspecified Category: Medical Qualifiers: Hypothyroidism type: unspecified Qualified Code(s): E03.9 - Hypothyroidism, unspecified Plan: TSH was 17.46 in ED. The patient was started on levothyroxine 175 mcg daily. This is new diagnosis for the patient. TSH and add T4, iodine and T3 were ordered on his previous visit. Encouraged the patient to get this done mario. (2) HTN (hypertension): Code(s): I10 - Essential (primary) hypertension Category: Medical Qualifiers: Hypertension type: unspecified Qualified Code(s): I10 - Essential (primary) hypertension Plan: Blood pressure in office was 150s/80s-goal is systolic less than 130mmhg. Patient reports that he did not take his medication as it this morning them about plans on taking them Encouraged dash diet and activity as tolerated Continue amlodipine 10 mg daily (3) Alcohol use disorder: Code(s): F10.90 - Alcohol use, unspecified, uncomplicated Category: Medical Plan: Encouraged cessation Refused addiction medicine referral (4) Hematuria: Code(s): R31.9 - Hematuria, unspecified Category: Medical Qualifiers: Hematuria type: asymptomatic microscopic Qualified Code(s): R31.21 - Asymptomatic microscopic hematuria Plan: Urine cytology was added to preordered labs that he patient was not able to complete. Encouraged the patient to get these done. (5) Sebaceous cyst: Code(s): L72.3 - Sebaceous cyst Category: Medical Plan: The patient has three cysts, two on his back and one on his forehead. On his previous visit, the patient was referred to general surgery for possible excision. The patient was referred to General surgery and these were removed. (6) Cocaine use: Code(s): F14.90 - Cocaine use, unspecified, uncomplicated Category: Social Hx Plan: Encouraged cessation Declines addiction medicine referral (7) Anemia: Code(s): D64.9 - Anemia, unspecified Category: Medical Qualifiers: Anemia type: unspecified type Qualified Code(s): D64.9 - Anemia, unspecified Plan: The patient anemia is more likely due to his excessive alcohol use. B12 and folate and iron panel were ordered to further evaluate. Awaiting for the patient to complete labs to gain more information on the cause of his anemia. (8) Fatigue: Code(s): R53.83 - Other fatigue Category: Medical Qualifiers: Fatigue type: unspecified Qualified Code(s): R53.83 - Other fatigue Plan: This could be due to the patient anemia or possible his thyroid. Explained to the patient that is it very important to complete his labs to further evaluate his condition. (9) Dyspnea: Code(s): R06.00 - Dyspnea, unspecified Category: Medical Qualifiers: Dyspnea type: unspecified Qualified Code(s): R06.00 - Dyspnea, unspecified Plan: The patient reports that this is worse upon exertion. Patient was ordered a cardiac stress test on previous visit but it does not appear that this was completed as yet. The patient is now having abnormal breath sounds and coughing up yellowish secretions. CXR ordered and the patient was started on Augmentin 875-125 mg bid x7 days. He was also started on Wixela Inhub BID, rescue inhaler was also ordered (10) Encounter for screening for lung cancer: Code(s): Z12.2 - Encounter for screening for malignant neoplasm of respiratory organs Category: Medical Plan: The patient has an extending smoking history. He was referred to thoracic surgery for lung cancer screening (11) Abnormal breath sounds: Code(s): R09.89 - Other specified symptoms and signs involving the circulatory and respiratory systems Category: Medical Plan: The patient was started on a inhaler, antibiotics, and a chest xray was ordered for the patient to complete mario. (12) Depression: Code(s): F32.A - Depression, unspecified Category: Medical Qualifiers: Depression Type: unspecified Qualified Code(s): F32.A - Depression, unspecified Plan: Reports depression, denies si/hi. Reports that he just does not feel like he wants to help himself, and he thinks that is worse than wanting to hurt himself. Zoloft 50 mg daily started, the patient will return in 4 weeks for reevaluation. Encouraged CBT and the patient declines; reports that he is only telling this provider these things because we met couple times now and he is feeling somewhat comfortable. Plan Return in 3 months, encouraged the patient to get his blood work completed as soon as possible and not to wait on his follow appointment. He will also follow up 4 week depresssion Orders: Orders XR chest 2V Today R06.00 - Dyspnea, unspecified, R09.89 - Other specified symptoms and signs involving the circulatory and respiratory systems Referrals Thoracic/General Surgery Referral Z12.2 - Encounter for screening for malignant neoplasm of respiratory organs Medications: New fluticasone propion-salmeterol 100-50 mcg/dose (Wixela Inhub) 1 inh inhalation Q12H 60 ea 3RF sertraline 50 mg PO DAILY 30 tabs 3RF albuterol sulfate 90 mcg/actuation (Ventolin HFA) 2 puffs inhalation Q4-6H PRN 8.5 grams 3RF shortness of breath or wheezing amoxicillin-pot clavulanate 875-125 mg 1 tab PO BID 14 tabs 0RF 7 days
[2024-11-29 08:58] VITALS: BP 150/86; PULSE 84; TEMP 36.2; O2SAT 98; BMI 32.9
== END 2024-11-29 11:22 | disposition home or self-care (01) ==
LOC: HO.HMCH 08:52
DX: E03.9 Hypothyroidism, unspecified (principal); I10 Essential (primary) hypertension; F10.90 Alcohol use, unspecified, uncomplicated; R31.21 Asymptomatic microscopic hematuria; L72.3 Sebaceous cyst; F14.90 Cocaine use, unspecified, uncomplicated; D64.9 Anemia, unspecified; R53.83 Other fatigue; R06.00 Dyspnea, unspecified; Z12.2 Encounter for screening for malignant neoplasm of respiratory organs; R09.89 Other specified symptoms and signs involving the circulatory and respiratory systems; F32.A Depression, unspecified

== ENCOUNTER → 2024-11-29 08:51 | Outpatient (BNVA) | payer OTHER, SELFPAY | DX: E03.9 Hypothyroidism, unspecified (principal); I10 Essential (primary) hypertension; R31.21 Asymptomatic microscopic hematuria; L72.3 Sebaceous cyst; D64.9 Anemia, unspecified; R53.83 Other fatigue; R06.00 Dyspnea, unspecified; R09.89 Other specified symptoms and signs involving the circulatory and respiratory systems; F32.A Depression, unspecified; F10.90 Alcohol use, unspecified, uncomplicated; F14.90 Cocaine use, unspecified, uncomplicated; Z79.899 Other long term (current) drug therapy | CPT/HCPCS: 99212 ==

== ENCOUNTER 2025-01-01 13:01 | Emergency (ER) | payer OTHER, SELFPAY ==
[2025-01-01] VITALS (7 sets, daily range): BP systolic 132–167; BP diastolic 82–102; PULSE 78–93; RESP 16–18; TEMP 36.8–37; O2SAT 95–99; BMI 31.5
--- NOTE | ~2025-01-01 | CT_ITS ---
CLINICAL HISTORY: shortness of breath, elevated D-dimer CT angiography chest with contrast. 3D Postprocessing. Comparison: CT - CT ANGIO CHEST PE PROTOCOL - 01/01/25 17:50 EDT Findings: The heart size is normal. RV/LV ratio is normal. Calcification of the coronary vasculature. Unremarkable thoracic aorta and great vessels. No aneurysm. No pulmonary artery filling defects. Thyroid is not seen. Mediastinum is within normal limits. No consolidation or effusion. The visualized upper abdomen is unremarkable. The bones are intact. IMPRESSION: 1. No pulmonary embolus. 2. Coronary artery disease. This document has been electronically signed by: Thea Lowery MD on 01/01/2025 19:06:16
--- NOTE | ~2025-01-01 | XR_ITS ---
EXAMINATION: XR CHEST 1 VIEW HISTORY: SOB COMPARISON: Comparison is made with the prior examination dated 05/29/2024. FINDINGS: Two AP portable views of the chest performed at 2:50 PM are submitted. The lungs are expanded and clear. There is no pleural effusion, pneumothorax, or pulmonary vascular congestion. The heart is normal in size. The bones are intact. XR/XR chest 1V IMPRESSION: No acute cardiopulmonary abnormality. Electronically signed by: Catracho Francisco MD 01/01/2025 03:04 PM EDT
--- NOTE | 2025-01-01 14:34 | ECG_ITS ---
Test Reason : sob Blood Pressure : */* mmHG Vent. Rate : 79 BPM Atrial Rate : 80 BPM P-R Int : 146 ms QRS Dur : 94 ms QT Int : 402 ms P-R-T Axes : 72 28 151 degrees QTcB Int : 460 ms Undetermined rhythm Left ventricular hypertrophy with repolarization abnormality ( Sokolow-Parker ) Abnormal ECG When compared with ECG of 14-Jun-2024 17:13, Inverted T waves have replaced nonspecific T wave abnormality in Anterior leads Referred By: Jovany Sebastian Electronically Signed By: CALISTA ESTRADA
--- NOTE | 2025-01-01 14:34 | ED.SOB ---
HPI - SOB/Dyspnea General Chief Complaint: Dyspnea Stated Complaint: JESSICA,DAVINAB GIVEN Time Seen by Provider: 01/01/25 14:25 Source: patient Mode of arrival: EMS Limitations: no limitations History of Present Illness HPI Narrative: This is 59 years old man with a history of asthma, history of hypertension history of alcohol abuse presented to emergency department complaining of shortness of breath and lightheadedness. He was given nebs pre-hospital. MD elicited complaint: shortness of breath Pertinent past history: COPD Onset (ago): day(s) (1) Timing: improved Severity: moderate Exacerbating factors: nothing Relieving factors: nothing Known history of: COPD Associated symptoms: denies other symptoms Related Data Previous Rx's ?Medication ?Instructions ?Recorded aspirin 81 mg chewable tablet 81 mg PO DAILY #30 tabs 05/31/24 fluticasone propionate 50 2 spray intranasal BID #16 grams 07/18/24 mcg/actuation nasal spray,suspension loratadine 10 mg tablet (Claritin) 10 mg PO DAILY PRN allergy 07/18/24 symptoms #90 tabs amlodipine 10 mg tablet 10 mg PO DAILY #90 tabs 08/29/24 folic acid 1 mg tablet 1 mg PO DAILY #90 tabs 08/29/24 albuterol sulfate 90 mcg/actuation 2 puff inhalation Q4-6H PRN 11/29/24 aerosol inhaler (Ventolin HFA) shortness of breath or wheezing #8.5 grams amoxicillin 875 mg-potassium 1 tab PO BID 7 days #14 tabs 11/29/24 clavulanate 125 mg tablet fluticasone 100 mcg-salmeterol 50 1 inh inhalation Q12H #60 ea 11/29/24 mcg/dose blistr powdr for inhalation (Wixela Inhub) sertraline 50 mg tablet 50 mg PO DAILY #30 tabs 11/29/24 atorvastatin 40 mg tablet 40 mg PO BEDTIME #90 tabs 12/22/24 levothyroxine 175 mcg tablet 175 mcg PO QAM #90 tabs 12/22/24 budesonide-formoterol HFA 160 2 puff inhalation BID #10.2 grams 01/01/25 mcg-4.5 mcg/actuation aerosol inhaler trazodone 50 mg tablet 50 mg PO BEDTIME PRN sleep #10 tabs 01/01/25 Allergies Allergy/AdvReac Type Severity Reaction Status Date / Time No Known Allergies Allergy Verified 01/01/25 13:12 Review of Systems Constitutional: Constitutional: Reports no additional constitutional complaints ENT: Reports system reviewed and no additional complaints, except as documented Gastrointestinal: Gastrointestinal: Reports no additional gastrointestinal complaints [facility] Past Medical History Attestation statement: The following information was validated with the patient. [facility] Narrative: Hypertension/alcohol abuse/asthma COPD Medical History (Updated 01/02/25 @ 00:00 by Background [place]) Anemia HTN (hypertension) Alcohol use disorder MDD (major depressive disorder), recurrent episode, moderate Microscopic hematuria Thrombocytopenia Tobacco use disorder Substance use disorder Elevated LFTs Non-ST elevation [place] (NSTEMI) Dizziness Surgical History Hx of excision of mass (09/27/24) History of right knee surgery Family History Family History Brother Diabetes Mother Thyroid disease Sister Thyroid disease Social History Social History Household Members: Other Household Members Other:: Father Housing: House Alcohol intake: current Alcohol intake frequency: 3 or more drinks per day Alcohol type: beer and hard liquor Patient Tobacco Use Status: Current everyday Tobacco user Tobacco use type: Cigarette Cigarette Packs Per Day: 0.5 Cigarettes Per Day: 10 e-Cigarette/Vaping Use: Never Used Second Hand Smoke Exposure: Yes Substance Use Type: Crack/Cocaine Advance Directives Date on File: 06/01/24 service: No Current occupational status: unemployed Vision needs: Yes (Reading glasses) Physical Exam Exam: Exam: No acute distress comfortable in the stretcher Vital Signs: Vital Signs: Last Vital Signs Temp 98.2 F 01/01/25 22:00 Pulse 78 01/01/25 22:00 Resp 16 01/01/25 22:00 BP 151/95 H 01/01/25 22:00 Pulse Ox 99 01/01/25 22:00 O2 Del Method Room Air 01/01/25 22:00 BMI result Body Mass Index 31.5 Const: General: cooperative Nutritional Appearance: well nourished Orientation/consciousness: patient oriented x3 Limitations: no limitations HEENT: Head: Yes normal to inspection Ears: hearing grossly normal bilaterally General nose exam: Normal external nose present Face and sinus: Yes normal facial exam Mouth: Normal oral and palatal mucosa present Throat: Yes posterior oropharynx normal Neck: Neck: Yes normal visual inspection Chest: Chest palpation & inspection: normal inspection of the chest Resp: Effort & Inspection: normal respiratory effort Auscultation: rhonchi Cardio: Jugular venous distension: no JVD Rate: regular rate Rhythm: regular rhythm GI: Inspection: Yes normal to inspection Palpation (GI): Soft to palpation, not firm and nontender Auscultation: normal bowel sounds Skin: General skin exam: no rashes or lesions noted and elasticity normal Neuro: General: patient oriented x3 Course Reevaluation(s) Reevaluation #1: I am off shift now signed out to incoming provider Time: 16:08 Reevaluation #2: [place]oda: The patient was signed out to me at change of shift by the previous provider. The patient had arrived apparently complaining of shortness of breath and has been given bronchodilator treatments and methylprednisolone by paramedics. The previous doctor ordered a dose of chlordiazepoxide because the patient is an alcoholic. I went to see the patient. His lungs seemed fairly clear. His labs showed a troponin of 50.5. He has had chronically mildly elevated troponins for awhile. A 2nd troponin was 52.2 which I think rules out an acute coronary syndrome. Additionally I ran a D-dimer which came back elevated and so he had a CT pulmonary angiogram. The CT pulmonary angiogram shows findings of coronary artery disease but no other acute findings. Specifically no pulmonary embolism. No consolidation. I went to see the patient after the results of the CT pulmonary angiogram. His lungs still seem fairly clear. He is oxygenating well on room air. He is complaining of numerous complaints however. He says that he feels profoundly weak and that he has trouble sleeping and that he drinks so heavily because of his trouble sleeping. He says he is extremely depressed although he denies suicidality. He says that he lives in a house which is a mess. The patient also said that he has a black stool earlier this morning. He says that he has had greenish loose stools for several days but today he had a messy black stool. I performed a rectal exam that showed pale greenish stool. No melena. The patient's labs do not suggest a GI bleed. His hemoglobin is higher today than when previously tested. Similarly his BUN is not elevated compared to previous values. The patient says that he has been to detox in the past but did not find it helpful. Given his description of his depression and his sense of despair I have asked for a care team consult. Time: 19:43 Reevaluation #3: [place]: The patient was seen by the care team. The patient does not seem to require inpatient psychiatric hospitalization. The patient is not interested in detox. Referrals has been made to the [facility] for possible outpatient therapy. Following the care team evaluation I did not feel there was an indication for the patient to be kept in the emergency room. The patient will be discharged. He asked for something to help him with sleeping as he says that he drinks alcohol primarily to help with sleep. I will give him a small prescription for trazodone. He should follow up with his PCP. Time: 00:32 Medications Administered Discontinued Medications Generic Name Dose Route Start Last Admin Trade Name Freq PRN Reason Stop Dose Admin Chlordiazepoxide HCl 50 mg 01/01/25 15:20 01/01/25 15:24 Chlordiazepoxide Hcl 25 Mg Capsule PO 01/01/25 15:21 50 mg ONCE ONE Administration Sodium Chloride 1,000 mls @ 999 mls/hr 01/01/25 14:30 01/01/25 15:45 Ns IVCONT 01/01/25 15:30 Infused .Q1H1M MICHAEL Infusion Iohexol 100 ml 01/01/25 18:08 01/01/25 18:09 Iohexol 350 Mg/Ml 100 Ml Infus..Btl IV 01/01/25 18:09 65 ml ONCE ONE Administration Medical Decision Making Medical Decision Making [facility] Narrative: Patient is here complaining of shortness of breath we will do a chest x-ray labs and reassess at this time he is feeling better he is asking for food Differential Diagnosis Differential Diagnoses: The differential diagnosis associated with the presentation includes Pneumonia/COPD exacerbation/viral syndrome Admission/Observation Consideration of admission/observation: Escalation of care including admission/observation considered Lab Data 01/01/25 15:43 01/01/25 15:43 Labs: Lab Results 01/01/25 01/01/25 Range/Units 15:43 17:21 WBC 8.2 (4.8-10.8) X10*3/uL RBC 4.53 L D (4.60-5.80) X10*6/uL Hgb 14.6 D (14.0-18.0) g/dl Hct 43.0 D (42.0-52.0) % MCV 94.9 (80.0-98.0) fL MCH 32.2 (27.0-33.0) pg MCHC 34.0 (31.0-36.0) g/dl RDW 13.5 (11.0-16.0) % Plt Count 160 D (160-400) X10*3/uL MPV 7.7 L (9.4-12.4) fL Immature Gran % (Auto) 0.2 (0.0-0.4) % Neut % (Auto) 95.2 H (45-73) % Lymph % (Auto) 2.3 L (20-40) % Creek % (Auto) 1.8 L (2-11) % Eos % (Auto) 0.4 (0-4) % Baso % (Auto) 0.1 (0-2) % Lymph # (Auto) 0.2 L (1.2-4.9) X10*3/uL Creek # (Auto) 0.2 (0.1-1.2) X10*3/uL Eos # (Auto) 0.0 (0.0-0.4) X10*3/uL Baso # (Auto) 0.0 (0.0-0.2) X10*3/uL Abs Immat Gran (auto) 0.02 (0.00-0.03) X10*3/uL Absolute Neuts (auto) 7.8 (2.0-8.3) x10*3/uL Absolute Nucleated RBC 0.000 (0.0-0.012) X10*3/uL Nucleated RBC % (auto) 0.0 (0.0-0.2) /100WBC D-Dimer High Sensitivty 479 NG/ML Sodium 139 (135-145) mmol/L Potassium 3.7 (3.3-5.1) mmol/L Chloride 105 (96-108) mmol/L Carbon Dioxide 24 (22-29) mmol/L Anion Gap 14 (12-20) BUN 18 H (9-16) mg/dL Creatinine 0.89 (0.5-1.4) mg/dL Estim Creat Clear Calc 121.4 Estimated GFR > 60 Random Glucose 198 H (60-115) mg/dL Calcium 8.9 D (8.4-10.2) mg/dL Magnesium 1.7 (1.6-2.6) mg/dL Total Bilirubin 0.4 (0.0-1.0) mg/dL AST 79 H (5-37) U/L ALT 78 H (0-40) U/L Alkaline Phosphatase 86 (39-117) U/L Troponin I High Sens 50.5 H 52.9 H (<3.5-35.0) ng/L Total Protein 7.4 (6.5-8.0) g/dL Albumin 4.3 (3.5-5.0) g/dL Ethyl Alcohol < 10 mg/dL Influenza Type A (PCR) NEGATIVE (Negative) Influenza Type B (PCR) NEGATIVE (Negative) RSV RNA Qual (PCR) NEGATIVE (Negative) SARS-CoV-2 RNA (RT-PCR) NEGATIVE (Negative) Discharge Plan Discharge Clinical Impression: COPD (chronic obstructive pulmonary disease), Alcoholism Patient Disposition: Home, Self-Care Instructions: How to Use a Metered-Dose Inhaler (ED) Additional Instructions: Your testing in the emergency room today was very reassuring. There is no sign of a heart attack or a blood clot in your lungs. The CAT scan of your chest is very clear. I have sent a prescription for an inhaler that you may use on an as-needed basis if you have shortness of breath but is worse than usual. Please do your best to minimize smoking and alcohol use. Please contact your regular doctor's office in the morning to arrange for a follow up appointment. Additionally you should be hearing from the [email or web address] for a possible referral for a therapist. I have sent a prescription for a medication called trazodone that you can try at bedtime to see if it helps with sleeping. Return to the emergency room if significantly worse. Prescriptions: New budesonide-formoterol 160-4.5 mcg/actuation HFA aerosol inhaler 2 puff inhalation BID Qty: 10.2 0RF trazodone 50 mg tablet 50 mg PO BEDTIME PRN (Reason: sleep) Qty: 10 0RF No Action levothyroxine 175 mcg tablet 175 mcg PO QAM Qty: 90 0RF atorvastatin 40 mg tablet 40 mg PO BEDTIME Qty: 90 0RF aspirin 81 mg tablet,chewable 81 mg PO DAILY Qty: 30 0RF fluticasone propion-salmeterol [Wixela Inhub] 100-50 mcg/dose blister with device 1 inh inhalation Q12H Qty: 60 3RF albuterol sulfate [Ventolin HFA] 90 mcg/actuation HFA aerosol inhaler 2 puff inhalation Q4-6H PRN (Reason: shortness of breath or wheezing) Qty: 8.5 3RF amoxicillin-pot clavulanate 875-125 mg tablet 1 tab PO BID 7 Days Qty: 14 0RF sertraline 50 mg tablet 50 mg PO DAILY Qty: 30 3RF fluticasone propionate 50 mcg/actuation spray,suspension 2 spray intranasal BID Qty: 16 0RF Rx Instructions: administer into each nostril loratadine [Claritin] 10 mg tablet 10 mg PO DAILY PRN (Reason: allergy symptoms) Qty: 90 3RF amlodipine 10 mg tablet 10 mg PO DAILY Qty: 90 3RF Protocol: Hold for SBP< HOLD for SBP < : 90 folic acid 1 mg tablet 1 mg PO DAILY Qty: 90 3RF Referrals: Harman Correa FNP-C [Primary Care Provider, Internal Medicine] Interventions: ED Discharge Assessment Last Done: 01/01/25 22:00 Discharge Date/Time: 01/01/25 22:44 Print Language: Malagasy
[2025-01-01 15:49] LABS: MANUAL DIFF FLAG NO
[2025-01-01 15:50] LABS: Hematocrit 43.0 % (42.0-52.0); Hemoglobin 14.6 g/dl (14.0-18.0); Imm Gran Abs Auto 0.02 X10*3/uL (0.00-0.03); Imm Gran Pct Auto 0.2 % (0.0-0.4); Lymphocytes Absolute Auto 0.2 X10*3/uL (1.2-4.9); Mean Corpuscular HGB Conc 34.0 g/dl (31.0-36.0); Mean Corpuscular Hemoglobin 32.2 pg (27.0-33.0); Mean Corpuscular Volume 94.9 fL (80.0-98.0); NRBC Abs Auto 0.000 X10*3/uL (0.0-0.012); NRBC Pct Auto 0.0 /100WBC (0.0-0.2); Platelet Count 160 X10*3/uL (160-400); Red Blood Count 4.53 X10*6/uL (4.60-5.80); SCAN SMEAR FLAG 1; White Blood Count 8.2 X10*3/uL (4.8-10.8)
[2025-01-01 16:20] LABS: Alanine Aminotransferase 78 U/L (0-40); Albumin Level 4.3 g/dL (3.5-5.0); Alkaline Phosphatase 86 U/L (39-117); Anion Gap 14 (12-20); Aspartate Amino Transferase 79 U/L (5-37); Blood Urea Nitrogen 18 mg/dL (9-16); Calcium 8.9 mg/dL (8.4-10.2); Carbon Dioxide 24 mmol/L (22-29); Chloride 105 mmol/L (96-108); Creatinine Clr Calc Pharmacy 121.4; Estimated Glomerular Filt Rate > 60; Potassium 3.7 mmol/L (3.3-5.1); Sodium 139 mmol/L (135-145); Total Protein 7.4 g/dL (6.5-8.0)
[2025-01-01 16:26] LABS: Resp Syncy Virus RNA Qual PCR NEGATIVE (Negative); SARS COV2 PCR INHOUSE NEGATIVE (Negative)
[2025-01-01 16:28] LABS: Troponin-I High Sensitivity 50.5 ng/L (<3.5-35.0)
[2025-01-01 17:36] LABS: D Dimer High Sensitivity 479 NG/ML
[2025-01-01 17:45] LABS: Troponin-I High Sensitivity 52.9 ng/L (<3.5-35.0)
[2025-01-01] MEDS: iohexoL 350 MG/ML 100 ML INFUS..BTL IV (18:09)
[2025-01-01 18:19] LABS: Magnesium 1.7 mg/dL (1.6-2.6)
--- NOTE | 2025-01-01 21:00 | PC.NURSE ---
care team at bedside
== END 2025-01-01 22:44 | disposition home or self-care (01) ==
PROVIDERS: Emergency Medicine; Emergency Provider Emergency Medicine
DX: F33.1 Major depressive disorder, recurrent, moderate (principal); F10.20 Alcohol dependence, uncomplicated; J44.9 Chronic obstructive pulmonary disease, unspecified; Y90.0 Blood alcohol level of less than 20 mg/100 ml; R06.02 Shortness of breath; R42 Dizziness and giddiness; R94.31 Abnormal electrocardiogram [ECG] [EKG]; R53.1 Weakness; Z03.818 Encounter for observation for suspected exposure to other biological agents ruled out; F17.210 Nicotine dependence, cigarettes, uncomplicated; Z79.899 Other long term (current) drug therapy
CPT/HCPCS: 36415; 71045; 71275; 80053; 80307; 83735; 84484; 85025; 85379; 87637; 93005; 96360; 99285; Q9967; S9485

== ENCOUNTER → 2025-01-01 14:31 | Outpatient (BNV) | payer OTHER, SELFPAY | PROVIDERS: Emergency Provider Emergency Medicine; Visit Provider Radiology Diagnostic Radiology | DX: I25.10 Atherosclerotic heart disease of native coronary artery without angina pectoris (principal); R06.02 Shortness of breath | CPT/HCPCS: 71045; 71275 ==

== ENCOUNTER → 2025-01-01 14:34 | Outpatient (BNV) | payer OTHER, SELFPAY | PROVIDERS: Emergency Provider Emergency Medicine; Visit Provider Internal Medicine | DX: I51.7 Cardiomegaly (principal) | CPT/HCPCS: 93010 ==

== ENCOUNTER 2025-01-25 05:26 | Inpatient (IN) | payer OTHER, SELFPAY ==
[2025-01-25] VITALS (10 sets, daily range): BP systolic 115–193; BP diastolic 64–113; PULSE 76–89; RESP 16–21; TEMP 36.1–37.1; O2SAT 94–98; BMI 30.9
--- NOTE | 2025-01-25 05:36 | ECG_ITS ---
Test Reason : ETOH WITHDRAW Blood Pressure : */* mmHG Vent. Rate : 82 BPM Atrial Rate : 82 BPM P-R Int : 148 ms QRS Dur : 92 ms QT Int : 382 ms P-R-T Axes : 57 24 169 degrees QTcB Int : 446 ms Normal sinus rhythm Left ventricular hypertrophy with repolarization abnormality ( Sokolow-Parker ) Abnormal ECG When compared with ECG of 01-Jan-2025 15:29, No significant changes seen Referred By: Andres Santana Electronically Signed By: CALISTA ESTRADA
--- NOTE | 2025-01-25 06:00 | ED_ITS ---
HPI - Alcohol General Chief Complaint: ETOH/Substance Use Stated Complaint: alcohol withdrawal Time Seen by Provider: 01/25/25 05:51 Source: patient, EMS and old records reviewed Mode of arrival: EMS Limitations: no limitations History of Present Illness ED Provider: JOHNNIE HAN narrative: 59-year-old male with past medical history of cocaine use disorder, anemia, hypertension, hypothyroid myopathy, hypothyroidism, hyperlipidemia, alcohol use disorder with average of drinking 1 quart of vodka with estimated last drink over 24 hours ago. He also complains of runny out of his levothyroxine due to obtain a prescription issues, about a week ago. He comes in with complaint of being extremely shaky in the last 2 days after not drinking as much. He feels dizzy when he stands. He states he has done detox before but is mostly heroin addicts and that is not him so he does not fit in. He has no SI or HI. He has no history of withdrawal seizures. He states he he has never been on any home medications for alcohol use disorder. He denies any GI bleed symptoms. He denies any head strike or trauma. MD complaint: alcohol withdrawal Last drink: Hours (ago) (24) Chronic alcohol use: Yes Previous visits for alcohol intoxication: Yes Recent trauma: No Associated symptoms: nausea, tremors and depression Treatments prior to arrival: none Related Data Previous Rx's ?Medication ?Instructions ?Recorded aspirin 81 mg chewable tablet 81 mg PO DAILY #30 tabs 05/31/24 fluticasone propionate 50 2 spray intranasal BID #16 g chris 07/18/24 mcg/actuation nasal spray,suspension loratadine 10 mg tablet (Claritin) 10 mg PO DAILY PRN allergy 07/18/24 symptoms #90 tabs amlodipine 10 mg tablet 10 mg PO DAILY #90 tabs 08/06 07/29 folic acid 1 mg tablet 1 mg PO DAILY #90 tabs 08/29 albuterol sulfate 90 mcg/actuation 2 puff inhalation Q 4-6H PRN 11/29/24 aerosol inhaler (Ventolin HFA) shortness of breath or wheezing #8.5 grams amoxicillin 875 mg-potassium 1 tab PO BID 7 days #14 t abs 11/29/24 clavulanate 125 mg tablet fluticasone 100 mcg-salmeterol 50 1 inh inhalation Q12 H #60 ea 11/29/24 mcg/dose blistr powdr for inhalation (Wixela Inhub) sertraline 50 mg tablet 50 mg PO DAILY #30 tabs 11/06 07/29 atorvastatin 40 mg tablet 40 mg PO BEDTIME #90 tabs levothyroxine 175 mcg tablet 175 mcg PO QAM #90 tabs 1 budesonide-formoterol HFA 160 2 puff inhalation BID #1 0.2 grams 01/01/25 mcg-4.5 mcg/actuation aerosol inhaler trazodone 50 mg tablet 50 mg PO BEDTIME PRN sleep # 10 tabs 01/01/25 Allergies Allergy/AdvReac Type Severity Reaction Status Date / Time No Known Allergies Allergy Verified 01/25/25 05:40 Review of Systems 2 Review of Systems: Constitutional : No Fever, No Chills, No Fatigue ENT/Mouth : No sore throat, No Rhinorrhea Eyes: No Eye Pain, No Swelling, No Redness Cardiovascular : No Chest Pain, No SOB, No Dyspnea on Exertion Respiratory : No Cough, No Sputum Gastrointestinal : pos Nausea, No Vomiting, No Diarrhea, No abdominal Pain Genitourinary : No Dysuria, No Urinary Frequency, No Hematuria, Musculoskeletal : No joint pain, No Myalgias, No Joint Swelling Skin : No Skin Lesions, No rash Neuro : pos Weakness, No Numbness, pos Dizziness, positive Headache All other systems reviewed and are negative [facility] Past Medical History Attestation statement: The following information was validated with the patient. Source: old records reviewed Medical History Anemia HTN (hypertension) Alcohol use disorder MDD (major depressive disorder), recurrent episode, moderate Microscopic hematuria Thrombocytopenia Tobacco use disorder Substance use disorder Elevated LFTs Non-ST elevation MS (NSTEMI) Dizziness Surgical History Hx of excision of mass (09/27/24) History of right knee surgery Family History Family History Brother Diabetes Mother Thyroid disease Sister Thyroid disease Social History Social History Household Members: Other Household Members Other:: Father Housing: House Alcohol intake: current Alcohol intake frequency: 0-2 drinks per day Alcohol type: hard liquor Patient Tobacco Use Status: Current everyday Tobacco user Tobacco use type: Cigarette Cigarette Packs Per Day: 0.5 Cigarettes Per Day: 10 Smoked in Last 30 Days: Yes e-Cigarette/Vaping Use: Never Used Second Hand Smoke Exposure: Yes Use of substances other than those prescribed or required for medical reasons: Yes Substance Use Type: Marijuana Advance Directives: Yes Advance Directives on File: Yes Advance Directives Date on File: 06/01/24 service: No Current occupational status: unemployed Vision needs: Yes (Reading glasses) Physical Exam ED Vital Signs: Vital Signs - 24 hr 01/25/25 05:35 Temperature 97.8 F Pulse Rate 89 Respiratory Rate 20 Blood Pressure 160/113 H Pulse Oximetry 95 Oxygen Delivery Method Room Air BMI result Body Mass Index 30.9 Appearance: Alert. Oriented X3. Mild acute distress. Anxious Eyes: Pupils equal, round and reactive to light. ENT: Pharynx normal. He has tongue fasciculations as well as mildly dry mucous membranes Neck: Normal inspection. Neck supple. CVS: Tachycardic heart rate and rhythm. Pulses normal. Respiratory: No respiratory distress. Breath sounds normal. Abdomen: Soft and nontender. Skin: Skin warm and dry. Normal skin color. Normal skin turgor. Extremities: No lower extremity edema. Neuro: Oriented X 3. No motor deficit. No sensory deficit. CN2-12 intact. Tremors both upper extremities Medical Decision Making Medical Decision Making MDM Narrative: 59-year-old male with hypertension, hyperlipidemia, hypothyroidism, alcohol use disorder, substance use disorder, depression who is here with complaint of last ETOH drink 24 hours ago now reports tremors, difficulty walking, nausea, anxiety. He has never had an alcohol withdrawal seizure before but is tremulous on exam with hypertension and tachycardia. At this time I have ordered IV fluids, labs, EKG, IV magnesium, IV thiamine, initial IV Valium. I will start him on a phenobarb protocol. I suspect he will need admission. He has no desire for outpatient detox at this time. He denies any SI or HI, he has no reported trauma, GI bleed symptoms, infectious symptoms. Differential Diagnosis Differential Diagnoses: The differential diagnosis associated with the presentation includes Electrolyte abnormality, alcohol use disorder, anemia, dehydration, substance use disorder We will obtain thyroid studies as well but currently has not no sedation, edema, hypothermia, bradycardia to suggest myxedema coma Admission/Observation Consideration of admission/observation: Escalation of care including admission/observation considered He is still tremulous after medications, still hypertensive, he will need admission for alcohol withdrawal we will discuss with hospitalist Consult Healthcare Provider Management of the patient was discussed with: Hospitalist (Will admit) Lab Data MDM Lab Attestation statement: I reviewed the patient's lab results. 01/25/25 06:14 01/25/25 06:15 Labs: Lab Results 01/25/25 01/25/25 Range/Units 06:14 06:15 WBC 5.6 (4.8-10.8) X10*3/uL RBC 4.25 L (4.60-5.80) X10*6/uL Hgb 13.7 L (14.0-18.0) g/dl Hct 39.7 L (42.0-52.0) % MCV 93.4 (80.0-98.0) fL MCH 32.2 (27.0-33.0) pg MCHC 34.5 (31.0-36.0) g/dl RDW 13.4 (11.0-16.0) % Plt Count 114 L D (160-400) X10*3/uL MPV 7.9 L (9.4-12.4) fL Immature Gran % (Auto) 0.4 (0.0-0.4) % Neut % (Auto) 80.7 H (45-73) % Lymph % (Auto) 6.8 L (20-40) % [place] % (Auto) 8.3 (2-11) % Eos % (Auto) 3.1 (0-4) % Baso % (Auto) 0.7 (0-2) % Lymph # (Auto) 0.4 L (1.2-4.9) X10*3/uL [place] # (Auto) 0.5 (0.1-1.2) X10*3/uL Eos # (Auto) 0.2 (0.0-0.4) X10*3/uL Baso # (Auto) 0.0 (0.0-0.2) X10*3/uL Abs Immat Gran (auto) 0.02 (0.00-0.03) X10*3/uL Absolute Neuts (auto) 4.5 (2.0-8.3) x10*3/uL Absolute Nucleated RBC 0.000 (0.0-0.012) X10*3/uL Nucleated RBC % (auto) 0.0 (0.0-0.2) /100WBC Sodium 138 (135-145) mmol/L Potassium 3.7 (3.3-5.1) mmol/L Chloride 104 (96-108) mmol/L Carbon Dioxide 23 (22-29) mmol/L Anion Gap 15 (12-20) BUN 13 (9-16) mg/dL Creatinine 0.91 (0.5-1.4) mg/dL Estim Creat Clear Calc 117.7 Estimated GFR > 60 Random Glucose 89 (60-115) mg/dL Calcium 8.6 (8.4-10.2) mg/dL Magnesium 1.6 (1.6-2.6) mg/dL Total Bilirubin 0.6 (0.0-1.0) mg/dL AST 126 H (5-37) U/L ALT 123 H (0-40) U/L Alkaline Phosphatase 85 (39-117) U/L Total Protein 6.5 (6.5-8.0) g/dL Albumin 3.9 (3.5-5.0) g/dL Lipase 47 (8-78) U/L TSH 50.09 H (0.32-4.0) uIU/mL Salicylates < 5.0 L (15-30) mg/dL Acetaminophen < 3 (<30) mcg/mL Ethyl Alcohol < 10 mg/dL Independent Interpretation I performed an independent interpretation of an: EKG Interpretation: Rate: 82 Rhythm: NSR Moran: Normal Normal P waves. Normal ELMA. Normal QRS complex. ST T wave : Inverted T-waves in 1, aVL, V3 through V6, no ST-elevation qTC: 446 prior studies: No change from December 2024 The study has been interpreted contemporaneously by me. . Independent Historian Clinical information obtained from an independent historian. History obtained from or confirmed by: EMS External Record Review External record reviewed: Inpatient record, Outpatient record, Prior outpatient labs and Prior outpatient radiology Medications Administered Generic Name Dose Route Start Last Admin Trade Name Freq PRN Reason Stop Dose Admin Magnesium Sulfate 2 gm in 50 mls @ 25 mls/hr 01/25/25 06:04 01/25/25 06:17 Magnesium Sulfate/H2o IV 01/25/25 08:03 25 mls/hr ONCE ONE Administration Discontinued Medications Generic Name Dose Route Start Last Admin Trade Name Chinmay PRN Reason Stop Dose Admin Diazepam 5 mg 01/25/25 06:04 01/25/25 06:16 Diazepam 10 Mg/2 Ml Cartridge IVPUSH 01/25/25 06:05 5 mg STAT STA Administration Sodium Chloride 1,000 mls @ 999 mls/hr 01/25/25 05:45 01/25/25 07:21 Ns IV 01/25/25 06:45 Infused .Q1H1M MICHAEL Infusion Thiamine HCl 200 mg/ Sodium 102 mls @ 204 mls/hr 01/25/25 05:53 01/25/25 06:32 Chloride IV 01/25/25 06:22 Infused ONCE ONE Infusion Phenobarbital Sodium 328 mg 01/25/25 07:00 01/25/25 07:20 Phenobarbital Sodium 130 Mg/Ml Im Once IM 01/25/25 07:01 328 mg ONCE ONE Administration Protocol Critical Care Time Critical Care Time Critical Care Time: Yes Total Critical Care Time: 45 Attestation: Time is exclusive of separately billable procedures. Time includes: direct patient care, patient reassessment, coordination of patient care, interpretation of data (laboratory data, pulse oximetry,), review of patient's medical records, medical consultation and documentation of patient care. IV magnesium to prevent arrhythmia, IV Valium for alcohol or trauma, phenobarb protocol for alcohol withdrawal. Procedures excluded from critical care time: electrocardiography. I attest to this time spent taking care of the patient Discharge Plan Discharge Clinical Impression: Alcohol withdrawal syndrome, Hypothyroidism Patient Disposition: Admitted As Inpatient Print Language: Malaysian
[2025-01-25] MEDS: Thiamine HCL 200 MG in 0.9 % Sodium Chloride 100 ML 204 MG IV (06:02)
[2025-01-25] MEDS: diazePAM 10 MG/2 ML CARTRIDGE 5 MG IVPUSH (06:16)
[2025-01-25] MEDS: Magnesium Sulfate/H2O 2 GM/50 ML PIGGYBACK IV (06:17)
[2025-01-25 06:22] LABS: Hematocrit 39.7 % (42.0-52.0); Hemoglobin 13.7 g/dl (14.0-18.0); Imm Gran Abs Auto 0.02 X10*3/uL (0.00-0.03); Imm Gran Pct Auto 0.4 % (0.0-0.4); Lymphocytes Absolute Auto 0.4 X10*3/uL (1.2-4.9); Mean Corpuscular HGB Conc 34.5 g/dl (31.0-36.0); Mean Corpuscular Hemoglobin 32.2 pg (27.0-33.0); Mean Corpuscular Volume 93.4 fL (80.0-98.0); NRBC Abs Auto 0.000 X10*3/uL (0.0-0.012); NRBC Pct Auto 0.0 /100WBC (0.0-0.2); Platelet Count 114 X10*3/uL (160-400); Red Blood Count 4.25 X10*6/uL (4.60-5.80); White Blood Count 5.6 X10*3/uL (4.8-10.8)
[2025-01-25 06:38] LABS: MANUAL DIFF FLAG NO
[2025-01-25 06:43] LABS: Acetaminophen LAB < 3 mcg/mL (<30); Salicylate < 5.0 mg/dL (15-30)
[2025-01-25 06:55] LABS: Alanine Aminotransferase 123 U/L (0-40); Albumin Level 3.9 g/dL (3.5-5.0); Alkaline Phosphatase 85 U/L (39-117); Anion Gap 15 (12-20); Aspartate Amino Transferase 126 U/L (5-37); Blood Urea Nitrogen 13 mg/dL (9-16); Calcium 8.6 mg/dL (8.4-10.2); Carbon Dioxide 23 mmol/L (22-29); Chloride 104 mmol/L (96-108); Creatinine Clr Calc Pharmacy 117.7; Estimated Glomerular Filt Rate > 60; Lipase 47 U/L (8-78); Magnesium 1.6 mg/dL (1.6-2.6); Potassium 3.7 mmol/L (3.3-5.1); Sodium 138 mmol/L (135-145); Total Protein 6.5 g/dL (6.5-8.0)
[2025-01-25] MEDS: PHENobarbitaL sodium 130 MG/ML IM ONCE 328 MG IM (07:20)
--- NOTE | 2025-01-25 08:22 | PM.IMHP ---
History of Present Illness Date of Service: 01/25/25 Attending physician on admission: El Kumari Chief Complaint: nausea, tremors; tried to quit drinking This is a 59-year-old male with history of alcohol dependence who presents to the emergency department nausea tremulousness. Patient states that he was attempting to stop drinking alcohol on his own. His last drink was Tuesday evening. He became progressively more tremulous, nauseated with retching which prompted him to come to the emergency room for evaluation. Patient is currently drinking approximately 1 qt of vodka daily. He has been drinking heavily for the past 5 years. In the emergency department he was noted to be tremulous, hypertensive with elevated CIWA score. He was treated with IV Valium but had persistent alcohol withdrawal symptoms and therefore was started on phenobarbital protocol. LFTs were high with AST 126/ALT 123. TSH was 50, patient reports running out of synthroid several days ago. Review of Systems Review of Systems: Yes all other systems are reviewed and are negative Constitutional: Constitutional: Reports chills, Reports difficulty sleeping, Denies fever(s) and Reports lethargy Cardiovascular: Cardiovascular: Denies chest pain and Denies palpitations Gastrointestinal: Gastrointestinal: Denies abdominal pain and Reports nausea Endocrine: Endocrine: Denies palpitations [facility] Medical History Anemia HTN (hypertension) Alcohol use disorder MDD (major depressive disorder), recurrent episode, moderate Microscopic hematuria Thrombocytopenia Tobacco use disorder Substance use disorder Elevated LFTs Non-ST elevation MS (NSTEMI) Dizziness Family History Brother Diabetes Mother Thyroid disease Sister Thyroid disease Surgical History Hx of excision of mass (09/27/24) History of right knee surgery Social History (Updated 01/25/25 @ 08:29 by MATIAS Abdi) Household Members: Other Household Members Other:: Father Housing: House Alcohol intake: current Alcohol intake frequency: 3 or more drinks per day Alcohol type: hard liquor Comment: 1 quart of vodka daily Patient Tobacco Use Status: Current everyday Tobacco user Tobacco use type: Cigarette Cigarette Packs Per Day: 0.5 Cigarettes Per Day: 10 Smoked in Last 30 Days: Yes e-Cigarette/Vaping Use: Never Used Second Hand Smoke Exposure: Yes Use of substances other than those prescribed or required for medical reasons: Yes Substance Use Type: Marijuana Advance Directives: Yes Advance Directives on File: Yes Advance Directives Date on File: 06/01/24 service: No Current occupational status: unemployed Vision needs: Yes (Reading glasses) Meds Allergies Allergy/AdvReac Type Severity Reaction Status Date / Time No Known Allergies Allergy Verified 01/25/25 05:40 Active Medications: Current Medications Acetaminophen (Acetaminophen 325 Mg Tablet) 650 mg PO Q6H PRN PRN Reason: Pain, Mild 1-3,fever,headache Calcium Carbonate (Calcium Carbonate 750 Mg Tab.Chew) 750 mg PO Q4H PRN PRN Reason: Heartburn Enoxaparin Sodium (Enoxaparin Sodium 40 Mg/0.4 Ml Syringe) 40 mg SUBCUT Q24H MICHAEL Folic Acid (Folic Acid 1 Mg Tablet) 1 mg PO DAILY MICHAEL Magnesium Hydroxide (Milk Of Magnesia 30 Ml Oral.Susp) 30 ml PO DAILY PRN PRN Reason: Constipation Magnesium Oxide (Magnesium Oxide 400 Mg Tablet) 400 mg PO BIDPC MICHAEL Melatonin (Melatonin 3 Mg Tablet) 6 mg PO BEDTIME PRN PRN Reason: Insomnia Nicotine (Nicotine 14 Mg Patch.Td24) 14 mg TRANSDERMA DAILY [facility] Pharmacy Consult (Consult Rx Etoh Phenob Im/Po) 1 each MISCELLANE ONCE PRN; Protocol PRN Reason: Consult order Phenobarbital (Phenobarbital 30 Mg Tablet) 60 mg PO BID [facility]; Protocol Stop: 01/27/25 09:01 Phenobarbital (Phenobarbital 30 Mg Tablet) 30 mg PO BID [facility]; Protocol Stop: 01/29/25 09:01 Phenobarbital (Phenobarbital 30 Mg Tablet) 30 mg PO DAILY [facility]; Protocol Stop: 01/31/25 09:01 Phenobarbital Sodium (Phenobarbital Sodium 130 Mg/Ml Vial Im Q3hx2) 246 mg IM Q3H [facility]; Protocol Stop: 01/25/25 13:01 Sodium Chloride (0.9 % Sodium Chloride Flush 3 Ml Syringe) 3 ml IVFLUSH QSHIFT [facility] Thiamine HCl (Thiamine Hcl 100 Mg Tablet) 100 mg PO DAILY [facility] Home Medications ?Medication ?Instructions ?Recorded ?Confirmed ?Last Taken ?Type fluticasone 100 mcg-salmeterol 50 1 inh inhalation Q12H 01/25/25 01/25/25 Unknown History mcg/dose blistr powdr for inhalation (Advair Diskus) levothyroxine 175 mcg tablet 175 mcg PO DAILY 01/25/25 01/25/25 Unknown History Physical Exam Vital Signs and Narrative: Vital Signs: Last Vital Signs Temp 97.8 F 01/25/25 05:35 Pulse 89 01/25/25 05:35 Resp 20 01/25/25 05:35 BP 160/113 H 01/25/25 05:35 Pulse Ox 95 01/25/25 05:35 O2 Del Method Room Air 01/25/25 05:35 BMI result Body Mass Index 30.9 Const: Other: appears tremulous General: cooperative, alert and awake Nutritional Appearance: overweight Orientation/consciousness: patient oriented x3 Resp: Effort & Inspection: normal respiratory effort, able to speak in complete sentences, no respiratory distress and no use of accessory muscles Auscultation: clear to auscultation bilaterally Cardio: Rate: regular rate GI: Inspection: No distended Palpation (GI): Soft to palpation and nontender Neuro: General: patient oriented x3, moves all extremities and CN's II-XI intact bilaterally Extrem: General: No pedal edema Results Labs 01/25/25 06:14 01/25/25 06:15 Labs: Laboratory Results - last 24 hr 01/25/25 01/25/25 06:14 06:15 MCV 93.4 MCH 32.2 MCHC 34.5 RDW 13.4 Plt Count 114 L D MPV 7.9 L Immature Gran % (Auto) 0.4 Neut % (Auto) 80.7 H Lymph % (Auto) 6.8 L [place] % (Auto) 8.3 Eos % (Auto) 3.1 Baso % (Auto) 0.7 Lymph # (Auto) 0.4 L [place] # (Auto) 0.5 Eos # (Auto) 0.2 Baso # (Auto) 0.0 Abs Immat Gran (auto) 0.02 Absolute Neuts (auto) 4.5 Absolute Nucleated RBC 0.000 Nucleated RBC % (auto) 0.0 Anion Gap 15 Estim Creat Clear Calc 117.7 Estimated GFR > 60 Random Glucose 89 Calcium 8.6 Magnesium 1.6 Total Bilirubin 0.6 AST 126 H ALT 123 H Alkaline Phosphatase 85 Total Protein 6.5 Albumin 3.9 Lipase 47 TSH 50.09 H Salicylates < 5.0 L Acetaminophen < 3 Ethyl Alcohol < 10 Assessment and Plan (1) Alcohol withdrawal syndrome: Qualifiers: Complication of substance-induced condition: uncomplicated Qualified Code(s): F10.930 - Alcohol use, unspecified with withdrawal, uncomplicated Status: Acute (2) Hypothyroidism: Status: Acute Plan This is a 59-year-old male with a history of alcohol dependence, tobacco dependence, HTN, hypothyroidism who presents to the emergency department with alcohol withdrawal Alcohol dependence with acute alcohol withdrawal Follow CIWA, Continue phenobarbital protocol Supplementation with thiamine, folic acid, oral magnesium Addiction medicine consultation Hypothyroidism TSH elevated, ran out of Synthroid Resume Synthroid Outpatient follow-up TSH in 4-6 weeks Tobacco dependence Smoking cessation advised 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 chronic elevated LFTs above baseline. due to etoh use depression zoloft HTN, bp uncontrolled likely due to etoh withdrawal resume baseline dose of norvasc h/o NSTEMI likely underlying CAD does not appear to have followed up with cardiology continue ASA, statin h/o dyspnea likely undiagnosed COPD both advair and symbicort are on med list with different prescribers Continue Advair as this is prescribed by his PCP. Stop Symbicort dvt ppx - lovenox code status - full code Patient will likely require 2 midnight stay in the hospital for management of acute alcohol withdrawal requiring phenobarbital, close monitoring Quality Stroke Does the patient have a stroke diagnosis?: No VTE Prior VTE?: No VTE Risk Level:: Medical - moderate - high VTE Device Contraindication: N/A - Device Ordered VTE Drug Contraindication: N/A - Med Ordered
--- NOTE | 2025-01-25 08:25 | HO.NURTONUR ---
59 yr male admitted for ETOH withdrawal Pt comes to ED with c/o weakness, nausea, anxiety, and dizziness. Pt also reports he ran out of this Levothyroxine d/t a Rx issue. Pt reports ETOH use 1 quart vodka per day, last use 01/24/25 CIWA + 12 on arrival. Treated with IVF, Mag, Valium, and Thiamin in ED. Phenobarbital protocol initiated in ED. 20g L and R hand. A&Ox3, VSS. Regular Diet.
[2025-01-25] MEDS: 0.9 % Sodium Chloride Flush 3 ML SYRINGE IVFLUSH ×3 (08:44→19:35)
[2025-01-25] MEDS: Nicotine 14 MG PATCH.TD24 TRANSDERMA (08:45)
--- NOTE | 2025-01-25 08:56 | PHA.MEDREC ---
Pharmacy Consult ? Medication Reconciliation Pharmacy has completed the medication reconciliation.Med rec complete, spoke to patient and compared with pharmacy claim history
[2025-01-25 08:59] LABS: Appearance Urine Clear; Glucose Urine UA Negative (Negative); PH 6.5 (5.0-9.0); Specific Gravity - Urine 1.010 (1.005-1.025); UMIC TRIGGER UACC YES
[2025-01-25 09:01] LABS: Free T4 (Free Thyroxine) 0.53 ng/dL (0.71-1.85)
[2025-01-25 09:08] LABS: Cannabinoid Screen Urine Not Detected (Not Detect)
[2025-01-25] MEDS: PHENobarbitaL sodium 130 MG/ML VIAL IM Q3Hx2 246 MG IM ×2 (09:56→13:55)
--- NOTE | 2025-01-25 14:35 | MHC.RECOVRN ---
Consult placed to Addiction Medicine for pt who presented with alcohol withdrawal symptoms. Per H&P: Patient is currently drinking approximately 1 qt of vodka daily and has been drinking heavily for the past 5 years. Noted to be tremulous & hypertensive with elevated CIWA scores upon arrival. Pheno protocol initiated. TW attempted to meet with pt in ED-10 to offer support, resources, and education. On approach, pt was laying on side, with eyes closed, in no apparent distress. Respirations even and unlabored. No restlessness or diaphoresis noted. Pt did not respond to name being called twice and was allowed to remain at rest. ACS team to return for Recovery/BH assessment and are available for ongoing support as needed.
--- NOTE | 2025-01-25 15:56 | HO.ADDICT_ITS ---
History of Present Illness Date of Service: 01/25/2025 Chief Complaint: etoh withdrawal Reason for Consult: AUD Sources of Information: chart reviewed HPI Narrative: Patient is a 59 year old male, with history of AUD, hypothyroid, depression. Presented to [facility] ED stating that he is feeling shaky over the last few days as he has been trying to stop drinking. Last drink Weds evening. Diazepam in ED not effective, so phenobarbital protocol initiated to address acute alcohol withdrawal. Attempted to meet with patient, while in ED, however he was sleeping soundly. Elected to allow him to rest as necessary clinical history was already obtained by admitting provider and in ED. Pt observed for a bit. HR 60's. Not diaphoretic or restless. No mention of loose stools or vomiting since admission. Per admission note patient reported drinking 1qt vodka daily Chart review shows that patient was seen by t/w May 2024. At that time he reported drinking 1/2 pint vodka daily At that time he reported worsening anxiety and poor sleep as main drivers for alcohol use---and stated that he started drinking over 4 years ago. He declined HANDY or referrals for AUD treatment at that time He was also seen by psychiatry and declined medication trial for depression and anxiety. chart review shows that since then, he has started Sertraline* Labs reviewed --elevated TSH, elevated LFTs, UDS +cocaine. Past Psychiatric History: Inpt: none OP: none Past trial: none Hx of suicide attempts: none Medical Evaluation Reviewed: Yes Review of Systems Review of Systems Yes Other (deferred--pt resting ) Diagnostics Vital Signs (24Hr): Vital Signs - 24 hr 01/25/25 05:35 01/25/25 08:50 01/25/25 09:56 Temperature 97.8 F Pulse Rate 89 88 Respiratory Rate 20 18 Blood Pressure 160/113 H 193/100 H 123/69 Pulse Oximetry 95 Oxygen Delivery Method Room Air 01/25/25 10:00 01/25/25 12:20 01/25/25 14:00 Temperature Pulse Rate 80 80 78 Respiratory Rate 16 21 H 20 Blood Pressure 126/72 144/97 H 115/64 Pulse Oximetry 97 97 Oxygen Delivery Method Room Air Room Air BMI result Body Mass Index 30.9 Labs 01/25/25 06:14 01/25/25 06:15 Labs: Laboratory Results - last 48 hr 01/25/25 01/25/25 01/25/25 06:14 06:15 08:40 WBC 5.6 RBC 4.25 L Hgb 13.7 L Hct 39.7 L MCV 93.4 MCH 32.2 MCHC 34.5 RDW 13.4 Plt Count 114 L D MPV 7.9 L Immature Gran % (Auto) 0.4 Neut % (Auto) 80.7 H Lymph % (Auto) 6.8 L [place] % (Auto) 8.3 Eos % (Auto) 3.1 Baso % (Auto) 0.7 Lymph # (Auto) 0.4 L [place] # (Auto) 0.5 Eos # (Auto) 0.2 Baso # (Auto) 0.0 Abs Immat Gran (auto) 0.02 Absolute Neuts (auto) 4.5 Absolute Nucleated RBC 0.000 Nucleated RBC % (auto) 0.0 Sodium 138 Potassium 3.7 Chloride 104 Carbon Dioxide 23 Anion Gap 15 BUN 13 Creatinine 0.91 Estim Creat Clear Calc 117.7 Estimated GFR > 60 Random Glucose 89 Calcium 8.6 Magnesium 1.6 Total Bilirubin 0.6 AST 126 H ALT 123 H Alkaline Phosphatase 85 Total Protein 6.5 Albumin 3.9 Lipase 47 TSH 50.09 H Free T4 0.53 L Urine Color Yellow Urine Appearance Clear Urine pH 6.5 Ur Specific [place] 1.010 Urine Protein Negative Urine Glucose (UA) Negative Urine Ketones Negative Urine Blood Small (1+) H Urine Nitrite Negative Ur Leukocyte Esterase Negative Urine RBC 0-2 Urine WBC 0-5 Ur Squamous Epith Cells 0-2 Urine Bacteria None Seen Hyaline Casts 0-2 Salicylates < 5.0 L Urine Opiates Screen Not Detected Ur Buprenorphine Scrn Not Detected Ur Oxycodone Screen Not Detected Urine Methadone Screen Not Detected Urine Fentanyl Screen Not Detected Acetaminophen < 3 Ur Barbiturates Screen Not Detected Ur Phencyclidine Scrn Not Detected Ur Amphetamines Screen Not Detected U Benzodiazepines Scrn Not Detected Urine Cocaine Screen POSITIVE H U Marijuana (THC) Screen Not Detected Ethyl Alcohol < 10 Mental Status Exam Mental Status Exam Narrative: Patient sleeping comfortably. No diaphoresis or restlessness noted. Medications Medications Current Medications Acetaminophen (Acetaminophen 325 Mg Tablet) 650 mg PO Q6H PRN PRN Reason: Pain, Mild 1-3,fever,headache Albuterol Sulfate (Albuterol Sulfate 90 Mcg 8 Gm Inhaler) 2 puff INHALE Q4H PRN PRN Reason: shortness of breath or wheezin Amlodipine Besylate (Amlodipine Besylate 10 Mg Tablet) 10 mg PO DAILY [facility]; Protocol Last Admin: 01/25/25 09:56 Dose: 10 mg Aspirin (Aspirin 81 Mg Tab.Chew) 81 mg PO DAILY [facility] Atorvastatin Calcium (Atorvastatin Calcium 40 Mg Tablet) 40 mg PO BEDTIME [facility] Calcium Carbonate (Calcium Carbonate 750 Mg Tab.Chew) 750 mg PO Q4H PRN PRN Reason: Heartburn Enoxaparin Sodium (Enoxaparin Sodium 40 Mg/0.4 Ml Syringe) 40 mg SUBCUT Q24H [facility] Last Admin: 01/25/25 08:46 Dose: 40 mg Famotidine (Famotidine/Pf 20 Mg/2 Ml Vial) 20 mg IVPUSH DAILY [facility] Last Admin: 01/25/25 09:56 Dose: 20 mg Fluticasone/Vilanterol (Fluticasone/Vilanterol 100/25 Blst.W.Dev) 1 puff INHALE RDAILY [facility] Folic Acid (Folic Acid 1 Mg Tablet) 1 mg PO DAILY [facility] Last Admin: 01/25/25 08:43 Dose: 1 mg Levothyroxine Sodium (Levothyroxine Sodium 175 Mcg Tablet) 175 mcg PO DAILY [facility] Last Admin: 01/25/25 12:21 Dose: 175 mcg Magnesium Hydroxide (Milk Of Magnesia 30 Ml Oral.Susp) 30 ml PO DAILY PRN PRN Reason: Constipation Magnesium Oxide ([facility]esium [facility] 400 Mg [facility]t) [facility] Last Admin: 01/25/25 08:43 Dose: 400 mg Melatonin (Melatonin 3 Mg Tablet) 6 mg PO BEDTIME PRN PRN Reason: Insomnia Nicotine (Nicotine 14 Mg Patch.Td24) 14 mg TRANSDERMA DAILY [facility] Last Admin: 01/25/25 08:45 Dose: 14 mg Pharmacy Consult (Consult Rx Etoh Phenob Im/Po) 1 each MISCELLANE ONCE PRN; Protocol PRN Reason: Consult order Phenobarbital (Phenobarbital 30 Mg Tablet) 60 mg PO BID [facility]; Protocol Stop: 01/27/25 09:01 Phenobarbital (Phenobarbital 30 Mg Tablet) 30 mg PO BID [facility]; Protocol Stop: 01/29/25 09:01 Phenobarbital (Phenobarbital 30 Mg Tablet) 30 mg PO DAILY [facility]; Protocol Stop: 01/31/25 09:01 Sertraline HCl (Sertraline Hcl 50 Mg Tablet) 50 mg PO DAILY [facility] Sodium Chloride (0.9 % Sodium Chloride Flush 3 Ml Syringe) 3 ml IVFLUSH QSHIFT [facility] Last Admin: 01/25/25 08:44 Dose: 3 ml Thiamine HCl (Thiamine Hcl 100 Mg Tablet) 100 mg PO DAILY [facility] Allergies Allergies Allergy/AdvReac Type Severity Reaction Status Date / Time No Known Allergies Allergy Verified 01/25/25 05:40 Assessment & Plan Assessment & Plan (1) Alcohol withdrawal syndrome: Qualifiers: Complication of substance-induced condition: uncomplicated Qualified Code(s): F10.930 - Alcohol use, unspecified with withdrawal, uncomplicated Status: Acute Code(s): F10.939 - Alcohol use, unspecified with withdrawal, unspecified Assessment and Plan: * phenobarbital taper in place. 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 [facility] Past Medical History Medical History Anemia HTN (hypertension) Alcohol use disorder MDD (major depressive disorder), recurrent episode, moderate Microscopic hematuria Thrombocytopenia Tobacco use disorder Substance use disorder Elevated LFTs Non-ST elevation OR (NSTEMI) Dizziness Family History Family History Brother Diabetes Mother Thyroid disease Sister Thyroid disease Surgical History Surgical History Hx of excision of mass (09/27/24) History of right knee surgery Social History Social History (Updated 01/25/25 @ 08:29 by MATIAS Abdi) Household Members: Other Household Members Other:: Father Housing: House Alcohol intake: current Alcohol intake frequency: 3 or more drinks per day Alcohol type: hard liquor Comment: 1 quart of vodka daily Patient Tobacco Use Status: Current everyday Tobacco user Tobacco use type: Cigarette Cigarette Packs Per Day: 0.5 Cigarettes Per Day: 10 Smoked in Last 30 Days: Yes e-Cigarette/Vaping Use: Never Used Second Hand Smoke Exposure: Yes Use of substances other than those prescribed or required for medical reasons: Yes Substance Use Type: Marijuana Advance Directives: Yes Advance Directives on File: Yes Advance Directives Date on File: 06/01/24 service: No Current occupational status: unemployed Vision needs: Yes (Reading glasses)
[2025-01-26] VITALS (7 sets, daily range): BP systolic 110–161; BP diastolic 58–94; PULSE 70–80; RESP 15–18; TEMP 36.1–37.2; O2SAT 92–98
[2025-01-26 08:14] LABS: Anion Gap 9 (12-20); Blood Urea Nitrogen 16 mg/dL (9-16); Calcium 8.4 mg/dL (8.4-10.2); Carbon Dioxide 28 mmol/L (22-29); Chloride 105 mmol/L (96-108); Creatinine Clr Calc Pharmacy 103.0; Estimated Glomerular Filt Rate > 60; Magnesium 1.9 mg/dL (1.6-2.6); Potassium 3.4 mmol/L (3.3-5.1); Sodium 139 mmol/L (135-145)
[2025-01-26] MEDS: Nicotine 14 MG PATCH.TD24 TRANSDERMA (09:16)
[2025-01-26] MEDS: 0.9 % Sodium Chloride Flush 3 ML SYRINGE IVFLUSH ×3 (09:21→20:01)
[2025-01-26] MEDS: Fluticasone/Vilanterol 100/25 BLST.W.DEV 1 PUFF INHALE (11:06)
--- NOTE | 2025-01-26 12:04 | HO.PM.IMPN ---
Subjective Subjective Date of Service: 01/26/25 Interval History: Reports feels better than yesterday Tremors have stopped No nausea; or vomiting has been able to tolerate solid diet Psychiatry recommends increasing Zoloft from 50 mg to 75 mg Currently smoking a pack a day Denies SOB or difficultly breathing Review of Systems Review of Systems: Yes all other systems are reviewed and are negative Physical Exam Exam: Exam: General: AOx3, no acute distress Resp: Mild diffuse wheezing bilaterally CVS: S1, S2, RRR GI: +BS, NT, no distention Skin: Warm, dry Neuro: Cranial nerves II-XII grossly intact bilaterally. Motor grossly intact bilaterally. No tremors noted Extremities: No edema Psych: Mildly anxious Vital Signs: Vital Signs: Last Vital Signs Temp 97.7 F 01/26/25 11:37 Pulse 80 01/26/25 11:37 Resp 18 01/26/25 11:37 BP 136/72 01/26/25 11:37 Pulse Ox 95 01/26/25 11:37 O2 Del Method Room Air 01/26/25 11:37 O2 Flow Rate 96 01/26/25 11:37 BMI result Body Mass Index 30.9 Objective Data Active Medications Acetaminophen (Acetaminophen 325 Mg Tablet) 650 mg PO Q6H PRN PRN Reason: Pain, Mild 1-3,fever,headache Albuterol Sulfate (Albuterol Sulfate 90 Mcg 8 Gm Inhaler) 2 puff INHALE Q4H PRN PRN Reason: shortness of breath or wheezin Amlodipine Besylate (Amlodipine Besylate 10 Mg Tablet) 10 mg PO DAILY [facility]; Protocol Last Admin: 01/26/25 09:13 Dose: 10 mg Documented By: MARQUEZ Aspirin (Aspirin 81 Mg Tab.Chew) 81 mg PO DAILY [facility] Last Admin: 01/26/25 09:14 Dose: 81 mg Documented By: MARQUEZ Atorvastatin Calcium (Atorvastatin Calcium 40 Mg Tablet) 40 mg PO BEDTIME [facility] Last Admin: 01/25/25 19:35 Dose: 40 mg Documented By: TOMMIE Calcium Carbonate (Calcium Carbonate 750 Mg Tab.Chew) 750 mg PO Q4H PRN PRN Reason: Heartburn Enoxaparin Sodium (Enoxaparin Sodium 40 Mg/0.4 Ml Syringe) 40 mg SUBCUT Q24H [facility] Last Admin: 01/26/25 09:20 Dose: 40 mg Documented By: MARQUEZ Famotidine (Famotidine/Pf 20 Mg/2 Ml Vial) 20 mg IVPUSH DAILY [facility] Last Admin: 01/26/25 09:15 Dose: 20 mg Documented By: MARQUEZ Fluticasone/Vilanterol (Fluticasone/Vilanterol 100/25 Blst.W.Dev) 1 puff INHALE RDAILY [facility] Last Admin: 01/26/25 11:06 Dose: 1 puff Documented By: UCHE Folic Acid (Folic Acid 1 Mg Tablet) 1 mg PO DAILY [facility] Last Admin: 01/26/25 09:13 Dose: 1 mg Documented By: MARQUEZ Levothyroxine Sodium (Levothyroxine Sodium 175 Mcg Tablet) 175 mcg PO DAILY [facility] Last Admin: 01/26/25 09:14 Dose: 175 mcg Documented By: MARQUEZ Magnesium Hydroxide (Milk Of Magnesia 30 Ml Oral.Susp) 30 ml PO DAILY PRN PRN Reason: Constipation Magnesium Oxide (Magnesium Oxide 400 Mg Tablet) [facility] Last Admin: 01/26/25 09:13 Dose: 400 mg Documented By: MARQUEZ Melatonin (Melatonin 3 Mg Tablet) 6 mg PO BEDTIME PRN PRN Reason: Insomnia Nicotine (Nicotine 14 Mg Patch.Td24) 14 mg TRANSDERMA DAILY [facility] Last Admin: 01/26/25 09:16 Dose: 14 mg Documented By: MARQUEZ Nicotine Polacrilex (Nicotine Polacrilex Lozenge 2 Mg Lozenge) 2 mg BUCCAL Q2H PRN PRN Reason: Nicotine Cravings Pharmacy Consult (Consult Rx Etoh Phenob Im/Po) 1 each MISCELLANE ONCE PRN; Protocol PRN Reason: Consult order Phenobarbital (Phenobarbital 30 Mg Tablet) 60 mg PO BID [facility]; Protocol Stop: 01/27/25 09:01 Last Admin: 01/26/25 09:13 Dose: 60 mg Documented By: MARQUEZ Phenobarbital (Phenobarbital 30 Mg Tablet) 30 mg PO BID [facility]; Protocol Stop: 01/29/25 09:01 Phenobarbital (Phenobarbital 30 Mg Tablet) 30 mg PO DAILY [facility]; Protocol Stop: 01/31/25 09:01 Sertraline HCl (Sertraline Hcl 50 Mg Tablet) 50 mg PO DAILY [facility] Last Admin: 01/26/25 09:13 Dose: 50 mg Documented By: MARQUEZ Sodium Chloride (0.9 % Sodium Chloride Flush 3 Ml Syringe) 3 ml IVFLUSH QSHIFT [facility] Last Admin: 01/26/25 09:21 Dose: 3 ml Documented By: MARQUEZ Thiamine HCl (Thiamine Hcl 100 Mg Tablet) 100 mg PO DAILY [facility] Last Admin: 01/26/25 09:15 Dose: 100 mg Documented By: MARQUEZ Labs 01/25/25 06:14 01/26/25 07:19 Labs: Laboratory Results - last 24 hr 01/26/25 07:19 Anion Gap 9 L Estim Creat Clear Calc 103.0 Estimated GFR > 60 Random Glucose 124 H Calcium 8.4 Magnesium 1.9 Assessment and Plan (1) Alcohol withdrawal syndrome: Status: Acute Plan This is a 59-year-old male with a history of alcohol dependence, tobacco dependence, HTN, hypothyroidism who presents to the emergency department with alcohol withdrawal Alcohol dependence with acute alcohol withdrawal Follow CIWA, Continue phenobarbital protocol Supplementation with thiamine, folic acid, oral magnesium Addiction medicine consultation Hypothyroidism TSH elevated, ran out of Synthroid at home Continue Synthroid Outpatient follow-up TSH in 4-6 weeks Tobacco dependence Smoking cessation advised 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 chronic Currently stable elevated LFTs above baseline. due to etoh use Monitor depression Psychiatry recommends increasing from sertraline 50 mg to 75 mg daily HTN, bp uncontrolled likely due to etoh withdrawal resume baseline dose of norvasc h/o NSTEMI likely underlying CAD does not appear to have followed up with cardiology continue ASA, statin h/o dyspnea likely undiagnosed COPD both advair and symbicort are on med list with different prescribers Continue Advair as this is prescribed by his PCP. Stop Symbicort dvt ppx - lovenox code status - full code Pt will require continued hospitalization for treatment of acute alcohol withdrawal needed controlled detox in the hospital. Quality Stroke Does the patient have a stroke diagnosis?: No VTE Prior VTE?: No VTE Risk Level:: Medical - moderate - high VTE Device Contraindication: N/A - Device Ordered VTE Drug Contraindication: N/A - Med Ordered
[2025-01-27] VITALS: BP 147/93; PULSE 74; RESP 18; TEMP 36.2; O2SAT 97
[2025-01-27 03:22] VITALS: BP 144/76; PULSE 74; RESP 18; TEMP 36.8; O2SAT 95
[2025-01-27 07:31] LABS: Alanine Aminotransferase 76 U/L (0-40); Albumin Level 3.5 g/dL (3.5-5.0); Alkaline Phosphatase 79 U/L (39-117); Anion Gap 9 (12-20); Aspartate Amino Transferase 67 U/L (5-37); Blood Urea Nitrogen 20 mg/dL (9-16); Calcium 8.6 mg/dL (8.4-10.2); Carbon Dioxide 24 mmol/L (22-29); Chloride 106 mmol/L (96-108); Creatinine Clr Calc Pharmacy 115.2; Estimated Glomerular Filt Rate > 60; Magnesium 1.8 mg/dL (1.6-2.6); Potassium 3.7 mmol/L (3.3-5.1); Sodium 135 mmol/L (135-145); Total Protein 6.0 g/dL (6.5-8.0)
[2025-01-27 07:38] VITALS: BP 164/92; PULSE 93; RESP 16; TEMP 36.2; O2SAT 98
[2025-01-27] MEDS: Nicotine 14 MG PATCH.TD24 TRANSDERMA (08:28)
--- NOTE | 2025-01-27 10:30 | PC.NURSE ---
Pt refusing bed alarms, observed pt ambulate with a steady gait in the hallway with standby assist. Pt reports dizziness initially on standing but resolves quickly. Pt agreed to call prior to getting up if he feels weak. pt made moderate fall risk.
[2025-01-27 11:04] VITALS: BP 142/86; PULSE 94; RESP 16; TEMP 36.4; O2SAT 98
--- NOTE | 2025-01-27 11:34 | P.PNIM_ITS ---
Subjective Subjective Date of Service: 01/27/25 Interval History: Feeling better today No nausea or vomiting Has been tolerating solid diet Withdrawal symptoms well-controlled Reports feeling ?blah? and slightly depressed Gera SI Review of Systems Review of Systems: Yes all other systems are reviewed and are negative Physical Exam 2 Exam: Exam: General: AOx3, no acute distress Resp: Lung CTA CVS: S1, S2, RRR GI: +BS, NT, no distention Skin: Warm, dry Neuro: Cranial nerves II-XII grossly intact bilaterally. Motor grossly intact bilaterally. No tremors noted. No tongue fasciculations Extremities: No edema Psych: Mildly anxious Vital Signs: Vital Signs: Last Vital Signs Temp 97.5 F 01/27/25 11:04 Pulse 94 01/27/25 11:04 Resp 16 01/27/25 11:04 BP 142/86 H 01/27/25 11:04 Pulse Ox 98 01/27/25 11:04 O2 Del Method Room Air 01/27/25 11:04 O2 Flow Rate 96 01/26/25 11:37 BMI result Body Mass Index 30.9 Objective Data Active Medications Acetaminophen (Acetaminophen 325 Mg Tablet) 650 mg PO Q6H PRN PRN Reason: Pain, Mild 1-3,fever,headache Albuterol Sulfate (Albuterol Sulfate 90 Mcg 8 Gm Inhaler) 2 puff INHALE Q4H PRN PRN Reason: shortness of breath or wheezin Amlodipine Besylate (Amlodipine Besylate 10 Mg Tablet) 10 mg PO DAILY [facility]; Protocol Last Admin: 01/27/25 08:28 Dose: 10 mg Documented By: ROBINSON Aspirin (Aspirin 81 Mg Tab.Chew) 81 mg PO DAILY [facility] Last Admin: 01/27/25 08:28 Dose: 81 mg Documented By: ROBINSON Atorvastatin Calcium (Atorvastatin Calcium 40 Mg Tablet) 40 mg PO BEDTIME [facility] Last Admin: 01/26/25 20:01 Dose: 40 mg Documented By: TOMMIE Calcium Carbonate (Calcium Carbonate 750 Mg Tab.Chew) 750 mg PO Q4H PRN PRN Reason: Heartburn Enoxaparin Sodium (Enoxaparin Sodium 40 Mg/0.4 Ml Syringe) 40 mg SUBCUT Q24H [facility] Last Admin: 01/27/25 08:28 Dose: 40 mg Documented By: ROBINSON Famotidine (Famotidine/Pf 20 Mg/2 Ml Vial) 20 mg IVPUSH DAILY [facility] Last Admin: 01/27/25 08:27 Dose: 20 mg Documented By: ROBINSON Folic Acid (Folic Acid 1 Mg Tablet) 1 mg PO DAILY [facility] Last Admin: 01/27/25 08:28 Dose: 1 mg Documented By: ROBINSON Levothyroxine Sodium (Levothyroxine Sodium 175 Mcg Tablet) 175 mcg PO DAILY [facility] Last Admin: 01/27/25 08:29 Dose: 175 mcg Documented By: ROBINSON Magnesium Hydroxide (Milk Of Magnesia 30 Ml Oral.Susp) 30 ml PO DAILY PRN PRN Reason: Constipation Magnesium Oxide (Magnesium Oxide 400 Mg Tablet) 400 mg PO BIDPC [facility] Last Admin: 01/27/25 08:29 Dose: 400 mg Documented By: ROBINSON Melatonin (Melatonin 3 Mg Tablet) 6 mg PO BEDTIME PRN PRN Reason: Insomnia Nicotine (Nicotine 14 Mg Patch.Td24) 14 mg TRANSDERMA DAILY [facility] Last Admin: 01/27/25 08:28 Dose: 14 mg Documented By: ROBINSON Nicotine Polacrilex (Nicotine Polacrilex Lozenge 2 Mg Lozenge) 2 mg BUCCAL Q2H PRN PRN Reason: Nicotine Cravings Pharmacy Consult (Consult Rx Etoh Phenob Im/Po) 1 each MISCELLANE ONCE PRN; Protocol PRN Reason: Consult order Phenobarbital (Phenobarbital 30 Mg Tablet) 30 mg PO BID [facility]; Protocol Stop: 01/29/25 09:01 Phenobarbital (Phenobarbital 30 Mg Tablet) 30 mg PO DAILY [facility]; Protocol Stop: 01/31/25 09:01 Sertraline HCl (Sertraline Hcl 25 Mg Tablet) 75 mg PO DAILY [facility] Last Admin: 01/27/25 08:29 Dose: 75 mg Documented By: ROBINSON Sodium Chloride (0.9 % Sodium Chloride Flush 3 Ml Syringe) 3 ml IVFLUSH QSHIFT [facility] Last Admin: 01/27/25 08:36 Dose: Not Given Documented By: ROBINSON Non-Admin Reason: IV Running Thiamine HCl (Thiamine Hcl 100 Mg Tablet) 100 mg PO DAILY [facility] Last Admin: 01/27/25 08:28 Dose: 100 mg Documented By: ROBINSON Labs 01/25/25 06:14 01/27/25 06:56 Labs: Laboratory Results - last 24 hr 01/27/25 06:56 Anion Gap 9 L Estim Creat Clear Calc 115.2 Estimated GFR > 60 Random Glucose 110 Calcium 8.6 Magnesium 1.8 Total Bilirubin 0.3 AST 67 H ALT 76 H Alkaline Phosphatase 79 Total Protein 6.0 L Albumin 3.5 Assessment and Plan (1) Alcohol withdrawal syndrome: Status: Acute Plan This is a 59-year-old male with a history of alcohol dependence, tobacco dependence, HTN, hypothyroidism who presents to the emergency department with alcohol withdrawal Alcohol dependence with acute alcohol withdrawal Follow CIWA, Continue phenobarbital protocol Withdrawal symptoms well-controlled Supplementation with thiamine, folic acid, oral magnesium Addiction medicine consultation Hypothyroidism TSH elevated, ran out of Synthroid at home Continue Synthroid Outpatient follow-up for repeat TSH in 4-6 weeks Tobacco dependence Smoking cessation advised 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 chronic Currently stable elevated LFTs above baseline. due to etoh use LFTs trending down Monitor depression Reports feeling slightly depressed today; denies SI Psychiatry recommends increasing from sertraline 50 mg to 75 mg daily HTN, bp uncontrolled likely due to etoh withdrawal resume baseline dose of norvasc h/o NSTEMI likely underlying CAD does not appear to have followed up with cardiology continue ASA, statin h/o dyspnea likely undiagnosed COPD both advair and symbicort are on med list with different prescribers Continue Advair as this is prescribed by his PCP. Stop Symbicort dvt ppx - lovenox code status - full code Pt will require continued hospitalization for treatment of acute alcohol withdrawal needed controlled detox in the hospital. Pt will likely be able stable enough to be discharged home tomorrow. Quality Stroke Does the patient have a stroke diagnosis?: No VTE Prior VTE?: No VTE Risk Level:: Medical - moderate - high VTE Device Contraindication: N/A - Device Ordered VTE Drug Contraindication: N/A - Med Ordered
--- NOTE | 2025-01-27 14:55 | MHC.CM.PN ---
PT REPORTS HE LIVES ALONE AND IS INDEPENDENT WITH CARE HE HAS NO DME OR SERVICES PCP: JOSIAH WU HCP ON FILE DCP: HOME VIA C SHUTTLE PT DOES NOT LIVE AT THE ADDRESS ON FILE HIS CURRENT ADDRESS IS: [address] [place] [address]
[2025-01-27 15:13] VITALS: BP 136/68; PULSE 69; RESP 18; TEMP 36.1; O2SAT 94
[2025-01-27] MEDS: 0.9 % Sodium Chloride Flush 3 ML SYRINGE IVFLUSH ×2 (16:28→21:22)
[2025-01-27 20:00] VITALS: BP 142/88; PULSE 69; RESP 20; TEMP 36.9; O2SAT 97
[2025-01-28] VITALS (9 sets, daily range): BP systolic 113–176; BP diastolic 67–99; PULSE 62–84; RESP 16–20; TEMP 36.2–37; O2SAT 95–98
--- NOTE | 2025-01-28 07:39 | HO.PM.IMPN ---
Subjective Subjective Date of Service: 01/28/25 Interval History: Patient finishing his phenobarb protocol He is otherwise medically optimized Would like a PT eval-patient walks with a walker Patient stated I would like to go home tomorrow and not today as he would rather not be alone at home due to concern of relapsing as he has some bottles of alcohol at home Review of Systems Review of Systems: Yes all other systems are reviewed and are negative Physical Exam Exam: Exam: General: AOx3, mildly disheveled Resp: Lung CTA CVS: S1, S2, RRR GI: +BS, NT, no distention Skin: Warm, dry Psych: Mildly anxious Vital Signs: Vital Signs: Last Vital Signs Temp 97.1 F 01/28/25 03:57 Pulse 74 01/28/25 03:57 Resp 18 01/28/25 03:57 BP 135/99 H 01/28/25 00:00 Pulse Ox 97 01/28/25 03:57 O2 Del Method Room Air 01/28/25 03:57 O2 Flow Rate 96 01/26/25 11:37 BMI result Body Mass Index 30.9 Objective Data Active Medications Acetaminophen (Acetaminophen 325 Mg Tablet) 650 mg PO Q6H PRN PRN Reason: Pain, Mild 1-3,fever,headache Albuterol Sulfate (Albuterol Sulfate 90 Mcg 8 Gm Inhaler) 2 puff INHALE Q4H PRN PRN Reason: shortness of breath or wheezin Amlodipine Besylate (Amlodipine Besylate 10 Mg Tablet) 10 mg PO DAILY [facility]; Protocol Last Admin: 01/27/25 08:28 Dose: 10 mg Documented By: ROBINSON Aspirin (Aspirin 81 Mg Tab.Chew) 81 mg PO DAILY [facility] Last Admin: 01/27/25 08:28 Dose: 81 mg Documented By: ROBINSON Atorvastatin Calcium (Atorvastatin Calcium 40 Mg Tablet) 40 mg PO BEDTIME [facility] Last Admin: 01/27/25 21:21 Dose: 40 mg Documented By: HOLLY Calcium Carbonate (Calcium Carbonate 750 Mg Tab.Chew) 750 mg PO Q4H PRN PRN Reason: Heartburn Enoxaparin Sodium (Enoxaparin Sodium 40 Mg/0.4 Ml Syringe) 40 mg SUBCUT Q24H [facility] Last Admin: 01/27/25 08:28 Dose: 40 mg Documented By: ROBINSON Famotidine (Famotidine/Pf 20 Mg/2 Ml Vial) 20 mg IVPUSH DAILY [facility] Last Admin: 01/27/25 08:27 Dose: 20 mg Documented By: ROBINSON Folic Acid (Folic Acid 1 Mg Tablet) 1 mg PO DAILY [facility] Last Admin: 01/27/25 08:28 Dose: 1 mg Documented By: ROBINSON Levothyroxine Sodium (Levothyroxine Sodium 175 Mcg Tablet) 175 mcg PO DAILY [facility] Last Admin: 01/27/25 08:29 Dose: 175 mcg Documented By: ROBINSON Magnesium Hydroxide (Milk Of Magnesia 30 Ml Oral.Susp) 30 ml PO DAILY PRN PRN Reason: Constipation Magnesium Oxide (Magnesium Oxide 400 Mg Tablet) 400 mg PO BIDPC [facility] Last Admin: 01/27/25 16:27 Dose: 400 mg Documented By: ROBINSON Melatonin (Melatonin 3 Mg Tablet) 6 mg PO BEDTIME PRN PRN Reason: Insomnia Nicotine (Nicotine 14 Mg Patch.Td24) 14 mg TRANSDERMA DAILY [facility] Last Admin: 01/27/25 08:28 Dose: 14 mg Documented By: ROBINSON Nicotine Polacrilex (Nicotine Polacrilex Lozenge 2 Mg Lozenge) 2 mg BUCCAL Q2H PRN PRN Reason: Nicotine Cravings Pharmacy Consult (Consult Rx Etoh Phenob Im/Po) 1 each MISCELLANE ONCE PRN; Protocol PRN Reason: Consult order Phenobarbital (Phenobarbital 30 Mg Tablet) 30 mg PO BID [facility]; Protocol Stop: 01/29/25 09:01 Last Admin: 01/27/25 21:21 Dose: 30 mg Documented By: HOLLY Phenobarbital (Phenobarbital 30 Mg Tablet) 30 mg PO DAILY [facility]; Protocol Stop: 01/31/25 09:01 Sertraline HCl (Sertraline Hcl 25 Mg Tablet) 75 mg PO DAILY [facility] Last Admin: 01/27/25 08:29 Dose: 75 mg Documented By: ROBINSON Sodium Chloride (0.9 % Sodium Chloride Flush 3 Ml Syringe) 3 ml IVFLUSH QSHIFT [facility] Last Admin: 01/27/25 21:22 Dose: 3 ml Documented By: HOLLY Thiamine HCl (Thiamine Hcl 100 Mg Tablet) 100 mg PO DAILY [facility] Last Admin: 01/27/25 08:28 Dose: 100 mg Documented By: ROBINSON Labs 01/25/25 06:14 01/27/25 06:56 Assessment and Plan (1) Alcohol withdrawal syndrome: Status: Acute Plan This is a 59-year-old male with a history of alcohol dependence, tobacco dependence, HTN, hypothyroidism who presents to the emergency department with alcohol withdrawal Alcohol dependence with acute alcohol withdrawal- finishing protocol tomorrow Not scoring on CIWA can DC tomorrow Addiction Medicine consulted and recommended rehab places which the patient defers for this admission Patient otherwise medically optimized, but requesting discharged tomorrow as the patient does not have anybody at home and he is at risk of relapsing as he has alcohol bottles at home, he stated his friends will come tomorrow evening and we will be with him and he has good social support to prevent him from drinking again Hypothyroidism TSH elevated, ran out of Synthroid at home Continue Synthroid Outpatient follow-up with PCP for repeat TSH in 4-6 weeks Tobacco dependence Smoking cessation advised 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 chronic Currently stable elevated LFTs above baseline. due to etoh use LFTs trending down Monitor depression denies SI Psychiatry recommends increasing from sertraline 50 mg to 75 mg daily HTN, bp uncontrolled likely due to etoh withdrawal resume baseline dose of norvasc h/o NSTEMI likely underlying CAD does not appear to have followed up with cardiology continue ASA, statin OP cardiology f/up h/o dyspnea likely undiagnosed COPD both advair and symbicort are on med list with different prescribers Continue Advair as this is prescribed by his PCP. Stop Symbicort dvt ppx - lovenox code status - full code Patient otherwise medically optimized, but requesting discharged tomorrow as the patient does not have anybody at home and he is at risk of relapsing as he has alcohol bottles at home, he stated his friends will come tomorrow evening and we will be with him and he has good social support to prevent him from drinking again Quality Stroke Does the patient have a stroke diagnosis?: No VTE Prior VTE?: No VTE Risk Level:: Medical - moderate - high VTE Device Contraindication: N/A - Device Ordered VTE Drug Contraindication: N/A - Med Ordered
[2025-01-28] MEDS: 0.9 % Sodium Chloride Flush 3 ML SYRINGE IVFLUSH ×3 (09:24→20:47)
[2025-01-28] MEDS: Nicotine 14 MG PATCH.TD24 TRANSDERMA (09:35)
[2025-01-28 09:47] LABS: Troponin-I High Sensitivity 31.6 ng/L (<3.5-35.0)
--- NOTE | 2025-01-28 12:42 | P.PNADD_ITS ---
Subjective Subjective Date of Service: 01/28/25 Reason For Visit: etoh withdrawal Interim History: Patient seen in follow up for AUD and acute withdrawal. Patient is awake, alert, pleasant and engaged in interview. Reporting that he feels so much better compared to when he was admitted. Withdrawal sx resolved, per patient. No tremor, diaphoresis, or restlessness noted. Patient reporting sleep has improved since being here. Seen by videotape operator over the weekend and resources provided and reviewed Reviewed goals regarding alcohol use once patient discharges-he states that his goal is to abstain completely Discussed strategies to support this goal-patient identified re-introducing structure and activity into his life. States he has been essentially in bed most of the day, when he was previously a very active person. T/W offered PHP/IOP as a potential way to create structure in his day, while also being in a therapeutic environment. Reviewed medications for AUD, and at this time patient is not ready to add this to his current medication regimen. Review of Systems Acute medical concerns: Yes Review of Systems Constitutional: Reports as per HPI and Reports no additional constitutional complaints Mental Status Exam Mental Status Exam Level of Consciousness: Awake, Appropriate and Alert Patient Behavior: Appropriate, Talkative and Cooperative Affect Description: Appropriate and Anxious Speech Pattern: Clear Thought Process: Intact Thought Content: positive for Intact Judgement: Good Diagnostics Vital Signs (24Hr): Vital Signs - 24 hr 01/27/25 15:13 01/27/25 20:00 01/28/25 00:00 Temperature 96.9 F 98.4 F 98.6 F Pulse Rate 69 69 84 Respiratory Rate 18 20 18 Blood Pressure 136/68 142/88 H 135/99 H Pulse Oximetry 94 97 97 Oxygen Delivery Method Room Air Room Air 01/28/25 03:57 01/28/25 08:00 01/28/25 09:16 Temperature 97.1 F 97.5 F Pulse Rate 74 63 Respiratory Rate 18 18 Blood Pressure 176/93 H Pulse Oximetry 97 98 Oxygen Delivery Method Room Air Room Air 01/28/25 11:56 01/28/25 12:08 Temperature 97.4 F Pulse Rate 80 Respiratory Rate Blood Pressure 155/95 H Pulse Oximetry 98 Oxygen Delivery Method Room Air BMI result Body Mass Index 30.9 Labs 01/25/25 06:14 01/27/25 06:56 Labs: Laboratory Results - last 48 hr 01/27/25 01/28/25 06:56 09:17 Sodium 135 Potassium 3.7 Chloride 106 Carbon Dioxide 24 Anion Gap 9 L BUN 20 H Creatinine 0.93 Estim Creat Clear Calc 115.2 Estimated GFR > 60 Random Glucose 110 Calcium 8.6 Magnesium 1.8 Total Bilirubin 0.3 AST 67 H ALT 76 H Alkaline Phosphatase 79 Troponin I High Sens 31.6 Total Protein 6.0 L Albumin 3.5 Medications Medications Current Medications Acetaminophen (Acetaminophen 325 Mg Tablet) 650 mg PO Q6H PRN PRN Reason: Pain, Mild 1-3,fever,headache Albuterol Sulfate (Albuterol Sulfate 90 Mcg 8 Gm Inhaler) 2 puff INHALE Q4H PRN PRN Reason: shortness of breath or wheezin Amlodipine Besylate (Amlodipine Besylate 10 Mg Tablet) 10 mg PO DAILY [facility]; Protocol Last Admin: 01/28/25 09:24 Dose: 10 mg Aspirin (Aspirin 81 Mg Tab.Chew) 81 mg PO DAILY [facility] Last Admin: 01/28/25 09:23 Dose: 81 mg Atorvastatin Calcium (Atorvastatin Calcium 40 Mg Tablet) 40 mg PO BEDTIME [facility] Last Admin: 01/27/25 21:21 Dose: 40 mg Calcium Carbonate (Calcium Carbonate 750 Mg Tab.Chew) 750 mg PO Q4H PRN PRN Reason: Heartburn Enoxaparin Sodium (Enoxaparin Sodium 40 Mg/0.4 Ml Syringe) 40 mg SUBCUT Q24H [facility] Last Admin: 01/28/25 09:24 Dose: 40 mg Famotidine (Famotidine/Pf 20 Mg/2 Ml Vial) 20 mg IVPUSH DAILY [facility] Last Admin: 01/28/25 09:22 Dose: 20 mg Folic Acid (Folic Acid 1 Mg Tablet) 1 mg PO DAILY [facility] Last Admin: 01/28/25 09:24 Dose: 1 mg Hydralazine HCl (Hydralazine Hcl 20 Mg/Ml Vial) 5 mg IVPUSH Q6H PRN; Protocol PRN Reason: SBP > 160 Levothyroxine Sodium (Levothyroxine Sodium 175 Mcg Tablet) 175 mcg PO DAILY@0600 [facility] Last Admin: 01/28/25 09:24 Dose: 175 mcg Magnesium Hydroxide (Milk Of Magnesia 30 Ml Oral.Susp) 30 ml PO DAILY PRN PRN Reason: Constipation Magnesium Oxide (Magnesium Oxide 400 Mg Tablet) 400 mg PO BIDPC [facility] Last Admin: 01/28/25 09:23 Dose: 400 mg Melatonin (Melatonin 3 Mg Tablet) 6 mg PO BEDTIME PRN PRN Reason: Insomnia Nicotine (Nicotine 14 Mg Patch.Td24) 14 mg TRANSDERMA DAILY [facility] Last Admin: 01/28/25 09:35 Dose: 14 mg Nicotine Polacrilex (Nicotine Polacrilex Lozenge 2 Mg Lozenge) 2 mg BUCCAL Q2H PRN PRN Reason: Nicotine Cravings Pharmacy Consult (Consult Rx Etoh Phenob Im/Po) 1 each MISCELLANE ONCE PRN; Protocol PRN Reason: Consult order Phenobarbital (Phenobarbital 30 Mg Tablet) 30 mg PO BID [facility]; Protocol Stop: 01/29/25 09:01 Last Admin: 01/28/25 09:23 Dose: 30 mg Phenobarbital (Phenobarbital 30 Mg Tablet) 30 mg PO DAILY [facility]; Protocol Stop: 01/31/25 09:01 Sertraline HCl (Sertraline Hcl 25 Mg Tablet) 75 mg PO DAILY [facility] Last Admin: 01/28/25 09:23 Dose: 75 mg Sodium Chloride (0.9 % Sodium Chloride Flush 3 Ml Syringe) 3 ml IVFLUSH QSHIFT [facility] Last Admin: 01/28/25 09:24 Dose: 3 ml Thiamine HCl (Thiamine Hcl 100 Mg Tablet) 100 mg PO DAILY [facility] Last Admin: 01/28/25 09:24 Dose: 100 mg Allergies Allergies Allergy/AdvReac Type Severity Reaction Status Date / Time No Known Allergies Allergy Verified 01/25/25 05:40 Assessment & Plan Assessment & Plan (1) Alcohol use disorder: Status: Acute Code(s): F10.90 - Alcohol use, unspecified, uncomplicated Assessment and Plan: * withdrawal essentially resolved * continue thiamine, folic acid at home * declined HANDY, declined referral to AUD tx provider, but requesting [facility] information-acetone recovery worker to follow up Total time managing care of this patient today ___35_ minutes.
--- NOTE | 2025-01-28 15:04 | MHC.CM.PN ---
Per MD, pt. to DC tomorrow to home where he has supports to assist with refraining from drinking alcohol. Cm to assist as needed with DC plan.
[2025-01-29] VITALS: BP 162/90; PULSE 69; RESP 18; TEMP 36.7; O2SAT 99
[2025-01-29 04:00] VITALS: BP 150/93; PULSE 78; RESP 18; TEMP 36.3; O2SAT 97
[2025-01-29 06:17] LABS: MANUAL DIFF FLAG NO
[2025-01-29 06:25] LABS: Hematocrit 36.9 % (42.0-52.0); Hemoglobin 12.3 g/dl (14.0-18.0); Imm Gran Abs Auto 0.04 X10*3/uL (0.00-0.03); Imm Gran Pct Auto 0.6 % (0.0-0.4); Lymphocytes Absolute Auto 0.7 X10*3/uL (1.2-4.9); Mean Corpuscular HGB Conc 33.3 g/dl (31.0-36.0); Mean Corpuscular Hemoglobin 32.6 pg (27.0-33.0); Mean Corpuscular Volume 97.9 fL (80.0-98.0); NRBC Abs Auto 0.000 X10*3/uL (0.0-0.012); NRBC Pct Auto 0.0 /100WBC (0.0-0.2); Platelet Count 151 X10*3/uL (160-400); Red Blood Count 3.77 X10*6/uL (4.60-5.80); White Blood Count 6.3 X10*3/uL (4.8-10.8)
[2025-01-29 06:39] LABS: Alanine Aminotransferase 141 U/L (0-40); Albumin Level 3.4 g/dL (3.5-5.0); Alkaline Phosphatase 86 U/L (39-117); Anion Gap 8 (12-20); Aspartate Amino Transferase 149 U/L (5-37); Blood Urea Nitrogen 19 mg/dL (9-16); Calcium 8.9 mg/dL (8.4-10.2); Carbon Dioxide 27 mmol/L (22-29); Chloride 104 mmol/L (96-108); Creatinine Clr Calc Pharmacy 101.0; Estimated Glomerular Filt Rate > 60; Magnesium 1.8 mg/dL (1.6-2.6); Potassium 4.1 mmol/L (3.3-5.1); Sodium 135 mmol/L (135-145); Total Protein 6.0 g/dL (6.5-8.0)
[2025-01-29 08:00] VITALS: BP 157/95; PULSE 69; RESP 18; TEMP 36.3; O2SAT 96
--- NOTE | 2025-01-29 08:01 | P.DS_ITS ---
DS: Providers Provider Date of Service: 01/29/25 Date of admission: 01/25/25 08:10 Date of discharge: 01/29/25 Primary care physician: DOM Mcintyre Consults: 01/25/25 08:21 Addiction Medicine Provider Routine Consulting Provider: Addiction Covering Reason for consultation: etoh dependence; wants to stop drinking Has provider been notified: No DS: Diagnosis Discharge Diagnosis (1) Alcohol withdrawal syndrome: Status: Acute DS: Summary Hospital Course Hospital Course: H &P : Chief Complaint: nausea, tremors; tried to quit drinking This is a 59-year-old male with history of alcohol dependence who presents to the emergency department nausea tremulousness. Patient states that he was attempting to stop drinking alcohol on his own. His last drink was Tuesday evening. He became progressively more tremulous, nauseated with retching which prompted him to come to the emergency room for evaluation. Patient is currently drinking approximately 1 qt of vodka daily. He has been drinking heavily for the past 5 years. In the emergency department he was noted to be tremulous, hypertensive with elevated CIWA score. He was treated with IV Valium but had persistent alcohol withdrawal symptoms and therefore was started on phenobarbital protocol. LFTs were high with AST 126/ALT 123. TSH was 50, patient reports running out of synthroid several days ago. HOSPITAL COURSE: This is a 59-year-old male with a history of alcohol dependence, tobacco dependence, HTN, hypothyroidism who presents to the emergency department with alcohol withdrawal Alcohol dependence with acute alcohol withdrawal- completed phenobarb protocol with good effect. 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 due to etoh use LFTs trending down Monitor depression denies SI Psychiatry recommends increasing from sertraline 50 mg to 75 mg daily HTN, bp uncontrolled likely due to etoh withdrawal resume baseline dose of norvasc h/o NSTEMI likely underlying CAD does not appear to have followed up with cardiology continue ASA, statin OP cardiology f/up h/o dyspnea likely undiagnosed COPD both advair and symbicort are on med list with different prescribers Continue Advair as this is prescribed by his PCP. Stop Symbicort dvt ppx - lovenox code status - full code Medically optimized. This note is constructed using voice recognition software. While every effort h as been made to ensure accuracy, slime plant operator helper errors may have been included. Time spent discussing smoking cessation with patient: more than 10 minutes Status at Discharge Functional status at discharge: independent ambulation Overall status at discharge: patient is progressing back to baseline Time Attestation Discharge Coordination Time (in mins): 45 Quality: Safe Use of Opioids Does Pt have an Active Cancer Diagnosis on the Problem List?: No Quality: Stroke Does the patient have a stroke diagnosis?: No Physical Exam Exam: Exam: General: AOx3, mildly disheveled Resp: Lung CTA CVS: S1, S2, RRR GI: +BS, NT, no distention Skin: Warm, dry Psych: Mildly anxious Vital Signs: Vital Signs: Last Vital Signs Temp 97.4 F 01/29/25 04:00 Pulse 78 01/29/25 04:00 Resp 18 01/29/25 04:00 BP 150/93 H 01/29/25 04:00 Pulse Ox 97 01/29/25 04:00 O2 Del Method Room Air 01/29/25 04:00 O2 Flow Rate 96 01/26/25 11:37 BMI result Body Mass Index 30.9 DS: Data Data Completed and Pending Labs on day of discharge: Laboratory Results - last 24 hr 01/28/25 01/29/25 09:17 06:08 WBC 6.3 RBC 3.77 L Hgb 12.3 L Hct 36.9 L MCV 97.9 MCH 32.6 MCHC 33.3 RDW 13.2 Plt Count 151 L D MPV 8.7 L Immature Gran % (Auto) 0.6 H Neut % (Auto) 74.0 H Lymph % (Auto) 10.6 L [place] % (Auto) 9.4 Eos % (Auto) 4.6 H Baso % (Auto) 0.8 Lymph # (Auto) 0.7 L [place] # (Auto) 0.6 Eos # (Auto) 0.3 Baso # (Auto) 0.1 Abs Immat Gran (auto) 0.04 H Absolute Neuts (auto) 4.7 Absolute Nucleated RBC 0.000 Nucleated RBC % (auto) 0.0 Sodium 135 Potassium 4.1 Chloride 104 Carbon Dioxide 27 Anion Gap 8 L BUN 19 H Creatinine 1.06 Estim Creat Clear Calc 101.0 Estimated GFR > 60 Random Glucose 127 H Calcium 8.9 Magnesium 1.8 Total Bilirubin 0.3 AST 149 H ALT 141 H Alkaline Phosphatase 86 Troponin I High Sens 31.6 Total Protein 6.0 L Albumin 3.4 L Discharge Plan Discharge Anticipated Discharge Date/Time: 01/29/25 08:07 Patient Disposition: Home, Self-Care Discharge Diagnosis: Alcohol withdrawal syndrome Referrals: Harman Correa FNP-C [Primary Care Provider, Internal Medicine] - 1 Week Discharge Medications: New nicotine 14 mg/24 hr Patch 24 Hour 14 mg transdermal DAILY 7 Days Qty: 14 0RF sertraline 25 mg Tablet 75 mg PO DAILY 30 Days Qty: 90 3RF nicotine (polacrilex) 2 mg Lozenge 2 mg buccal Q2H PRN (Reason: Nicotine Cravings) 7 Days Qty: 14 0RF thiamine mononitrate (vit B1) 100 mg Tablet 100 mg PO DAILY 30 Days Qty: 30 3RF Continued atorvastatin 40 mg tablet 40 mg PO BEDTIME Qty: 90 0RF budesonide-formoterol 160-4.5 mcg/actuation HFA aerosol inhaler 2 puff inhalation BID Qty: 10.2 0RF aspirin 81 mg tablet,chewable 81 mg PO DAILY Qty: 30 0RF fluticasone propion-salmeterol [Advair Diskus] 100-50 mcg/dose Blister With Device 1 inh INHALATION Q12H levothyroxine 175 mcg tablet 175 mcg PO DAILY albuterol sulfate [Ventolin HFA] 90 mcg/actuation HFA aerosol inhaler 2 puff inhalation Q4-6H PRN (Reason: shortness of breath or wheezing) Qty: 8.5 3RF amlodipine 10 mg tablet 10 mg PO DAILY Qty: 90 3RF Protocol: Hold for SBP< HOLD for SBP < : 90 folic acid 1 mg tablet 1 mg PO DAILY Qty: 90 3RF Discontinued sertraline 50 mg tablet 50 mg PO DAILY Qty: 30 3RF Discharge Orders: Discharge Order (Routine); Ordered 01/29/25 Ordered By: Gabi Dent Diet: Low salt diet Activity on Discharge: As tolerated Stand Alone Forms: Patient Portal Discharge page Print Language: Romanian Care Plan Goals: Alcohol cessation advised Nicotine replacement therapy prescribed and encouraged stopping smoking cessation Addiction Medicine has given you resources regarding abstinence Please follow-up with that Continue taking thiamine and folate to prevent 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
[2025-01-29] MEDS: Nicotine 14 MG PATCH.TD24 TRANSDERMA (08:26)
[2025-01-29] MEDS: 0.9 % Sodium Chloride Flush 3 ML SYRINGE IVFLUSH (08:27)
--- NOTE | 2025-01-29 09:23 | MHC.CM.PN ---
Patient medically cleared for dc home self care. Reports he has a ride home at 1pm and agrees to wait in [facility]. RN aware.
== END 2025-01-29 10:46 | disposition home or self-care (01) | DRG 775 ==
LOC: HO.ED 07:49 → HO.EDOVER 08:10 → HO.IMC 16:04 → HO.S3 01-28 17:30
PROVIDERS: Physician Assistant; Student in an Organized Health Care Education/Training Program; Admitting Provider Physician Assistant Medical; Emergency Provider Emergency Medicine; Visit Provider Student in an Organized Health Care Education/Training Program
DX: F10.239 Alcohol dependence with withdrawal, unspecified (principal); D69.59 Other secondary thrombocytopenia; F17.210 Nicotine dependence, cigarettes, uncomplicated; I25.10 Atherosclerotic heart disease of native coronary artery without angina pectoris; F32.A Depression, unspecified; T38.1X6A Underdosing of thyroid hormones and substitutes, initial encounter; E03.9 Hypothyroidism, unspecified; Z71.6 Tobacco abuse counseling; Z79.82 Long term (current) use of aspirin; Z79.51 Long term (current) use of inhaled steroids; Z79.890 Hormone replacement therapy; Z79.899 Other long term (current) drug therapy
CPT/HCPCS: 36415; 80048; 80053; 80143; 80179; 80307; 81001; 81003; 83690; 83735; 84439; 84443; 84484; 85025; 93005; 94640; 97161; 99285; J1308; J1650; J2560; J3360; J3411; J3475; S9485

== ENCOUNTER → 2025-01-25 05:36 | Outpatient (BNV) | payer OTHER, SELFPAY | PROVIDERS: Admitting Provider Physician Assistant Medical; Emergency Provider Emergency Medicine; Visit Provider Internal Medicine | DX: I51.7 Cardiomegaly (principal) | CPT/HCPCS: 93010 ==

== ENCOUNTER → 2025-01-25 08:10 | Outpatient (BNV) | payer OTHER, SELFPAY | PROVIDERS: Admitting Provider Physician Assistant Medical; Emergency Provider Emergency Medicine; Visit Provider Nurse Practitioner Psychiatric/Mental Health | DX: F10.90 Alcohol use, unspecified, uncomplicated (principal) | CPT/HCPCS: 99221; 99231 ==

== ENCOUNTER → 2025-01-25 08:10 | Outpatient (BNV) | payer OTHER, SELFPAY | PROVIDERS: Admitting Provider Physician Assistant Medical; Emergency Provider Emergency Medicine; Visit Provider Student in an Organized Health Care Education/Training Program | DX: F10.930 Alcohol use, unspecified with withdrawal, uncomplicated (principal) | CPT/HCPCS: 99233 ==

== ENCOUNTER 2025-03-04 10:56 | Outpatient (AMB) | payer OTHER, SELFPAY ==
--- NOTE | 2025-03-04 11:05 | MHC.PC.OV ---
Vital Signs 03/04/25 11:07 Height 6 ft 2 in Weight 249 lb 4 oz BMI 32.0 BP 140/80 H Blood Pressure Location Lt brachial Position Sitting Pulse 90 Pulse Source Pulse Oximeter Temp 97.3 F Temp Source Temporal Artery Scan Pulse Oximetry (%) 96 Oxygen Delivery Method Room Air Intake Visit Reasons: hypothyroid/htn/anemia Intake Note: Patient is here to follow up on Hypothyroid, HTN, Anemia. Global Compensation Manager Required: No Dry Kiln Operator: Not Required per policy Accompanied by: Self / Same As Patient Allergies nicotine Adverse Reaction (Intermediate, Verified 03/04/25 11:17) Headache Medication List - Last Reconciled 03/04/25 by DOM Mcintyre albuterol sulfate 90 mcg/actuation (Ventolin HFA) 2 puffs inhalation Q4-6H PRN amlodipine 10 mg See Protocol PO DAILY aspirin 81 mg PO DAILY atorvastatin 40 mg PO BEDTIME budesonide-formoterol 160-4.5 mcg/actuation 2 puffs inhalation BID fluticasone propion-salmeterol 100-50 mcg/dose (Advair Diskus) 1 inh inhalation Q12H folic acid 1 mg PO DAILY levothyroxine 175 mcg PO DAILY 30 days sertraline 75 mg (3 x 25 mg) PO DAILY 30 days thiamine mononitrate (vit B1) 100 mg PO DAILY 30 days Tobacco use date assessed: 03/04/25 Dental Screening Dental Screen Date: 07/18/24 HPI HPI Comments History of Present Illness Details The patient is a 59 year old male presenting for follow-up and management of several issues, primarily related to alcohol use. He has a history of heavy alcohol consumption, previously drinking up to three pints of vodka per day, which he states was exacerbated by recent life stressors including the deaths of his father, best friend, and dog. ` During this period of increased drinking, he was non-adherent with his medications. ` He had two recent ER visits for alcohol withdrawal, with the second visit resulting in a four-day hospitalization about a month and a half ago, where he experienced severe withdrawal symptoms. Since his hospitalization, the patient has significantly reduced his alcohol intake to one beer and a shot daily. He reports he is feeling much better, eating better, and is now more active, including walking constantly and resuming cooking. His medical history is notable for hypothyroidism, for which his Synthroid was increased to 75 mcg in the hospital, but he has since self-reduced the dose back to 50 mcg. He also takes Zoloft, which he feels contributes to erectile dysfunction. Recent lab work from January showed a significant elevation in his liver enzymes. New complaints include an umbilical bulge that he noticed, which he suspects might be intestine. For the past four days, he has also experienced upper abdominal bloating and dysphagia, which is worse when lying flat, suggestive of GERD. He is also out of all his inhalers. Health Maintenance - Discussed reducing alcohol consumption to prevent further liver damage. - Patient has increased his physical activity, including walking constantly. - Patient reports he is eating better. - Patient declined referral to a specialist for management of alcohol cravings. Social History - Alcohol Use: Reports a history of heavy alcohol use, formerly consuming three pints of vodka daily. - He has recently reduced his intake to a beer and a shot daily following a hospitalization for alcohol withdrawal. - States his heavy drinking was a coping mechanism for recent bereavements (father, best friend, and dog). - He declined a specialist referral for medication to manage cravings, stating he prefers to handle it himself. - Diet and Activity: Reports eating better and has increased his activity levels, including constant walking and resuming cooking. - Social Support: Reports having a strong support system of friends and a girlfriend. Results - Labs: Recent liver enzymes from January showed a significant jump compared to a prior baseline, indicating hepatic stress. - Labs: Recent thyroid labs from his ER visit showed a high TSH and low T4. [facility] Medical History Anemia HTN (hypertension) Alcohol use disorder MDD (major depressive disorder), recurrent episode, moderate Microscopic hematuria Thrombocytopenia Tobacco use disorder Substance use disorder Elevated LFTs Non-ST elevation [place] (NSTEMI) Dizziness Surgical History Hx of excision of mass (09/27/24) History of right knee surgery Family History Brother Diabetes Mother Thyroid disease Sister Thyroid disease Social History Household Members: None Household Members Other:: Father Housing: House Do you presently have visiting nurse or other home services: No Alcohol intake: current Alcohol intake frequency: 3 or more drinks per day Alcohol type: hard liquor Comment: 1 quart of vodka daily Patient Tobacco Use Status: Current someday Tobacco user Tobacco use type: Cigarette Cigarette Packs Per Day: 0.5 Cigarettes Per Day: 10 e-Cigarette/Vaping Use: Never Used Second Hand Smoke Exposure: Yes Substance Use Type: Marijuana Advance Directives Date on File: 06/01/24 service: No Current occupational status: unemployed Vision needs: Yes (Reading glasses) Questionnaire Thrive Questionnaire Date Thrive assessed: 01/27/25 I am a: Patient What is your living situation today?: I have a steady place to live Within the past 12 months, did the food you bought not last and you didn't have the money to get more?: Sometimes True Within the past 12 months, did you worry whether your food would run out before you got money to buy more?: Sometimes True Do you have trouble paying for medicines?: No Do you have trouble getting transportation to medical appointments?: No Do you have trouble paying your heating and electricity bill?: No Do you have trouble taking care of your child, family member or friend?: No Do you have trouble with day-to-day activities such as bathing, preparing meals, shopping, managing finances, etc.?: No Are you currently unemployed and looking for a job?: No Are you interested in more education?: No Currently or been in a relationship where the following occur: I choose not to answer THRIVE Score: 2 YOSHI-7 AMB Questionnaire YOSHI-7 Date YOSHI - 7 assessed: 07/18/24 Source: Developed by Drs. Catracho Russo, Rachel Bolivar, Tristan Humphrey and colleagues, with an educational lashonda from [employer]. Review of Systems Narrative Review of Systems - Constitutional: Reports feeling good. - Gastrointestinal: Reports new onset of a palpable umbilical bulge. - Reports upper abdominal bloating and dysphagia for the past four days, which is worse when lying flat. - Respiratory: Reports that he is out of all his inhaler medications. - Genitourinary: Reports erectile dysfunction. Const Denies body aches, Denies chills, Reports fatigue, Denies fever(s), Denies headache(s) and Denies poor appetite Eyes Reports no additional complaints ENT Reports dysphagia (On and off), Denies dizziness, Denies headache(s) and Denies odynophagia Card Denies chest pain, Denies syncope, Denies edema, Denies irregular heart rhythm, Denies lightheadedness, Denies dyspnea and Reports dyspnea on exertion Resp Denies dyspnea and Reports dyspnea on exertion GI Denies abdominal pain, Reports bloating, Denies constipation, Reports dysphagia (On and off), Reports heartburn, Denies diarrhea, Denies nausea, Denies odynophagia, Denies vomiting and Reports other (Small bulging that umbilical region) Reports no additional complaints Musc Reports no additional complaints and Denies abnormal gait Skin/Breast Reports system reviewed and no additional complaints, except as documented Neuro Denies abnormal gait, Denies dizziness, Denies syncope and Denies headache(s) Psych Reports depression Endo Reports fatigue Physical exam (Primary Care) Vital Signs: Last Vital Signs Temp 97.3 F 03/04/25 11:07 Pulse 90 03/04/25 11:07 BP 140/80 H 03/04/25 11:07 Pulse Ox 96 03/04/25 11:07 Oxygen Delivery Method Room Air 03/04/25 11:07 BMI result Body Mass Index 32.0 Tobacco/Smoking Status: Tobacco use Status Tobacco use date assessed 03/04/25 03/04/25 11:14 Patient Tobacco Use Status Current someday Tobacco 03/04/25 11:14 Tobacco use type Cigarette 03/04/25 11:14 e-Cigarette/Vaping Use Never Used 03/04/25 11:14 Thrive Assessment: Date of Thrive Assessment Date Thrive assessed 01/27/25 03/04/25 11:14 Currently or been in a relationship where the following occur: I choose not to answer Narrative Physical Exam - General: Appears in no acute distress. - Respiratory: Lungs clear to auscultation bilaterally. Const General: cooperative, healthy appearing, comfortable and no acute distress Orientation/consciousness: patient oriented x3 HENMT Head: Yes normocephalic Ears: TM's normal bilaterally Face and sinus: No sinus tenderness Eyes General: appearance normal, both eyes and all related structures Conjunctivae: conjunctivae normal Neck Neck: Yes full ROM and Yes no lymphadenopathy Resp Effort & Inspection: normal respiratory effort Auscultation: clear to auscultation bilaterally, no crackles, no rhonchi and no wheezes Cardio Rate: regular rate Rhythm: regular rhythm Heart sounds: S1 normal heart sound present and S2 normal heart sound present GI Palpation (GI): Soft to palpation, nontender and Hernia present (Small bulging noted) umbilical Auscultation: normal bowel sounds General: Yes no CVA tenderness Back/Spine/Pelvis Back: no CVA tenderness Skin General skin exam: no rashes or lesions noted Neuro General: patient oriented x3 Gait exam (Neuro): Normal gait present Extrem General: Yes normal to inspection, Yes full ROM and No edema Right lower extremity: lower leg Details: no edema Left lower extremity: lower leg Details: no edema Psych Affect: normal affect Attitude: cooperative Insight: Good insight present (Psych) Judgement: Good judgement present (Psych) Results Reviewed Results Reviewed: Laboratory Tests 01/25/25 01/29/25 08:40 06:08 WBC 6.3 RBC 3.77 L Hgb 12.3 L Hct 36.9 L MCV 97.9 MCH 32.6 MCHC 33.3 RDW 13.2 Plt Count 151 L D Sodium 135 Potassium 4.1 Chloride 104 Carbon Dioxide 27 Anion Gap 8 L BUN 19 H Creatinine 1.06 Estim Creat Clear Calc 101.0 Estimated GFR > 60 Random Glucose 127 H Calcium 8.9 Magnesium 1.8 Total Bilirubin 0.3 AST 149 H ALT 141 H Alkaline Phosphatase 86 Total Protein 6.0 L Albumin 3.4 L Urine Color Yellow Urine Appearance Clear Urine pH 6.5 Ur Specific [place] 1.010 Urine Protein Negative Urine Glucose (UA) Negative Urine Ketones Negative Urine Blood Small (1+) H Urine Nitrite Negative Ur Leukocyte Esterase Negative Urine RBC 0-2 Urine WBC 0-5 Ur Squamous Epith Cells 0-2 Urine Bacteria None Seen Hyaline Casts 0-2 Urine Cocaine Screen POSITIVE H Coding Level of Care Code Est Pt Level 4 (66918) Diagnoses Hypothyroidism, unspecified type E03.9 Hypothyroidism type: unspecified Hypertension, unspecified type I10 Hypertension type: unspecified Alcohol use disorder F10.90 Asymptomatic microscopic hematuria R31.21 Hematuria type: asymptomatic microscopic Sebaceous cyst L72.3 Cocaine use F14.90 Anemia, unspecified type D64.9 Anemia type: unspecified type Fatigue, unspecified type R53.83 Fatigue type: unspecified Dyspnea, unspecified type R06.00 Dyspnea type: unspecified Depression, unspecified depression type F32.A Depression Type: unspecified Transaminitis R74.01 Erectile dysfunction, unspecified erectile dysfunction type N52.9 Erectile dysfunction type: unspecified Umbilical hernia without obstruction and without gangrene K42.9 Obstruction and gangrene presence: without obstruction or gangrene Gastroesophageal reflux disease, unspecified whether esophagitis present K21.9 Esophagitis presence: esophagitis presence not specified Time Spent (min) 36 Assessment & Plan Assessment & Plan (1) Hypothyroidism: Code(s): E03.9 - Hypothyroidism, unspecified Category: Medical Qualifiers: Hypothyroidism type: unspecified Qualified Code(s): E03.9 - Hypothyroidism, unspecified Plan: TSH was 17.46 in ED. The patient was started on levothyroxine 175 mcg daily. This is new diagnosis for the patient. TSH and add T4, iodine and T3 were ordered on his previous visit. Encouraged the patient to get this done mario. (2) HTN (hypertension): Code(s): I10 - Essential (primary) hypertension Category: Medical Qualifiers: Hypertension type: unspecified Qualified Code(s): I10 - Essential (primary) hypertension Plan: Blood pressure in office was 150s/80s-goal is systolic less than 130mmhg. Patient reports that he did not take his medication as it this morning them about plans on taking them Encouraged dash diet and activity as tolerated Continue amlodipine 10 mg daily (3) Alcohol use disorder: Code(s): F10.90 - Alcohol use, unspecified, uncomplicated Category: Medical Plan: Encouraged cessation Refused addiction medicine referral (4) Hematuria: Code(s): R31.9 - Hematuria, unspecified Category: Medical Qualifiers: Hematuria type: asymptomatic microscopic Qualified Code(s): R31.21 - Asymptomatic microscopic hematuria Plan: Urine cytology was added to preordered labs that he patient was not able to complete. Encouraged the patient to get these done. (5) Sebaceous cyst: Code(s): L72.3 - Sebaceous cyst Category: Medical Plan: The patient has three cysts, two on his back and one on his forehead. On his previous visit, the patient was referred to general surgery for possible excision. The patient was referred to General surgery and these were removed. (6) Cocaine use: Code(s): F14.90 - Cocaine use, unspecified, uncomplicated Category: Social Hx Plan: Encouraged cessation Declines addiction medicine referral (7) Anemia: Code(s): D64.9 - Anemia, unspecified Category: Medical Qualifiers: Anemia type: unspecified type Qualified Code(s): D64.9 - Anemia, unspecified Plan: The patient anemia is more likely due to his excessive alcohol use. B12 and folate and iron panel were ordered to further evaluate. Awaiting for the patient to complete labs to gain more information on the cause of his anemia. (8) Fatigue: Code(s): R53.83 - Other fatigue Category: Medical Qualifiers: Fatigue type: unspecified Qualified Code(s): R53.83 - Other fatigue Plan: This could be due to the patient anemia or possible his thyroid. Explained to the patient that is it very important to complete his labs to further evaluate his condition. (9) Dyspnea: Code(s): R06.00 - Dyspnea, unspecified Category: Medical Qualifiers: Dyspnea type: unspecified Qualified Code(s): R06.00 - Dyspnea, unspecified Plan: The patient reports that this is worse upon exertion. Patient was ordered a cardiac stress test on previous visit but it does not appear that this was completed as yet. The patient is now having abnormal breath sounds and coughing up yellowish secretions. CXR ordered and the patient was started on Augmentin 875-125 mg bid x7 days. He was also started on Wixela Inhub BID, rescue inhaler was also ordered previously. The patient still has some dyspnea with exertion on and off. Does not appear to be compliant with inhalers routinely. Breath sounds are clear to auscultation. Inhalers refilled per request (10) Depression: Code(s): F32.A - Depression, unspecified Category: Medical Qualifiers: Depression Type: unspecified Qualified Code(s): F32.A - Depression, unspecified Plan: Reports depression, denies si/hi. Reports that he just does not feel like he wants to help himself, and he thinks that is worse than wanting to hurt himself. Zoloft 50 mg daily started, the patient will return in 4 weeks for reevaluation. The pateint did not follow up, reports that this dose was increased when he was in the hospital for alcohol withdrawal but he decreased back to 50 mg a day after he was discharged. Encouraged CBT and the patient declines; reports that he is only telling this provider these things because we met couple times now and he is feeling somewhat comfortable. Patient continued to decline being referred to Psychiatry or a therapist. (11) Transaminitis: Code(s): R74.01 - Elevation of levels of liver transaminase levels Category: Medical Plan: The patient liver enzyme increased significantly since last seen in office. Apparently the patient has been drinking heavily again. He was recently treated in the hospital for alcoholism and was noted to have positive cocaine in his urine as well. Offered to refer the patient to addictive the medicine to help him cope with the disease but the patient adamantly refused. Per patient, he has this under control and does not want to be referred for any help. Reinforced avoiding or decreasing significantly his alcohol, Tylenol or medication containing Tylenol, fatty foods intake (12) Erectile dysfunction: Code(s): N52.9 - Male erectile dysfunction, unspecified Category: Medical Qualifiers: Erectile dysfunction type: unspecified Qualified Code(s): N52.9 - Male erectile dysfunction, unspecified Plan: Discussed with the patient that this might be related to his alcohol use. Cialis 5 mg daily p.r.n. ordered (13) Umbilical hernia: Code(s): K42.9 - Umbilical hernia without obstruction or gangrene Category: Medical Qualifiers: Obstruction and gangrene presence: without obstruction or gangrene Qualified Code(s): K42.9 - Umbilical hernia without obstruction or gangrene Plan: Denies abdominal pain Abdominal ultrasound ordered to further evaluate, consider referring the patient to general surgery (14) GERD (gastroesophageal reflux disease): Code(s): K21.9 - Gastro-esophageal reflux disease without esophagitis Category: Medical Qualifiers: Esophagitis presence: esophagitis presence not specified Qualified Code(s): K21.9 - Gastro-esophageal reflux disease without esophagitis Plan: Reinforced dietary restriction Omeprazole 40 mg daily ordered Orders: Orders US abdomen complete 03/04/25 R74.01 - Elevation of levels of liver transaminase levels Medications: New fluticasone propion-salmeterol 100-50 mcg/dose (Advair Diskus) 1 inh inhalation Q12H 60 ea 3RF tadalafil (Cialis) administer approximately 30min before sexual activity; do not use more than 1 dose per 24hrs 5 mg PO DAILY PRN 20 tabs 0RF sexual activity omeprazole 40 mg PO DAILY 90 caps 3RF Refilled albuterol sulfate 90 mcg/actuation (Ventolin HFA) 2 puffs inhalation Q4-6H PRN 8.5 grams 3RF shortness of breath or wheezing
[2025-03-04 11:07] VITALS: BP 140/80; PULSE 90; TEMP 36.3; O2SAT 96; BMI 32.0
== END 2025-03-04 11:44 | disposition home or self-care (01) ==
LOC: HO.HMCH 10:56
DX: E03.9 Hypothyroidism, unspecified (principal); I10 Essential (primary) hypertension; F10.90 Alcohol use, unspecified, uncomplicated; R31.21 Asymptomatic microscopic hematuria; L72.3 Sebaceous cyst; F14.90 Cocaine use, unspecified, uncomplicated; D64.9 Anemia, unspecified; R53.83 Other fatigue; R06.00 Dyspnea, unspecified; F32.A Depression, unspecified; R74.01 Elevation of levels of liver transaminase levels; N52.9 Male erectile dysfunction, unspecified; K42.9 Umbilical hernia without obstruction or gangrene; K21.9 Gastro-esophageal reflux disease without esophagitis

== ENCOUNTER → 2025-03-04 10:56 | Outpatient (BNVA) | payer OTHER, SELFPAY | DX: I10 Essential (primary) hypertension (principal); E03.9 Hypothyroidism, unspecified; D64.9 Anemia, unspecified; R31.21 Asymptomatic microscopic hematuria; F10.90 Alcohol use, unspecified, uncomplicated; L72.3 Sebaceous cyst; F14.90 Cocaine use, unspecified, uncomplicated; R53.83 Other fatigue; R06.00 Dyspnea, unspecified; F32.A Depression, unspecified; R74.01 Elevation of levels of liver transaminase levels; N52.9 Male erectile dysfunction, unspecified; K42.9 Umbilical hernia without obstruction or gangrene; K21.9 Gastro-esophageal reflux disease without esophagitis | CPT/HCPCS: 99212 ==